=== PATIENT | male | born 1975 | race Caucasian/White ===

== ENCOUNTER 2020-08-01 08:50 | Outpatient (REF) | payer OTHER, SELFPAY ==
--- NOTE | ~2020-08-01 | XR_ITS ---
EXAMINATION: XR CHEST CLINICAL INFORMATION: Cough. COMPARISON: None TECHNIQUE: 2 views of the chest were obtained. FINDINGS: The lungs are hyperinflated but clear of acute process. Heart size and the pulmonary vascularity is normal. No gross bony abnormality seen. XR/XR chest 2V IMPRESSION: Unremarkable chest exam.
== END 2020-08-01 08:51 | disposition home or self-care (01) ==
LOC: HO.HMGCLDS 08:50
PROVIDERS: Visit Provider Hospitalist
DX: R05 Cough (principal); J40 Bronchitis, not specified as acute or chronic; Z20.822 Contact with and (suspected) exposure to COVID-19
CPT/HCPCS: 71046; U0003; U0005

== ENCOUNTER 2021-06-29 12:46 | Outpatient (REF) | payer OTHER, SELFPAY ==
--- NOTE | ~2021-06-29 | XR_ITS ---
EXAMINATION: XR WRIST, LEFT CLINICAL INFORMATION: Arthropathic psoriasis COMPARISON: None TECHNIQUE: PA, lateral, and oblique views of the left wrist. FINDINGS: No fracture or dislocation. The carpal rows are well aligned. Joint spaces are maintained. Mild arthritic change of the distal radioulnar joint with osteophyte formation. No osseous erosions. The soft tissues are unremarkable. XR/XR wrist LT min 3V IMPRESSION: Mild arthritic change of the distal radioulnar joint. Otherwise unremarkable appearance of the wrist.
== END 2021-06-29 12:47 | disposition home or self-care (01) ==
LOC: HO.HMGCX 12:46
PROVIDERS: Visit Provider Nurse Practitioner Family
DX: M25.532 Pain in left wrist (principal); L40.50 Arthropathic psoriasis, unspecified
CPT/HCPCS: 73110

== ENCOUNTER 2022-12-17 09:02 | Emergency (ER) | payer OTHER, SELFPAY ==
--- NOTE | ~2022-12-17 | XR_ITS ---
EXAMINATION: XR FOOT, RIGHT CLINICAL INFORMATION: Right foot pain. COMPARISON: None available. TECHNIQUE: AP, lateral, and oblique views of the right foot. An indicator arrow points to the fifth digit. FINDINGS: There is an acute, minimally displaced and angled a fracture at the level the proximal metaphysis of the proximal phalanx of the fifth digit. The mid and distal phalanges appear intact. The fifth metatarsal appears intact as well. The remainder the digits are intact. The tarsal bones are normally aligned. Mild soft tissue swelling is seen laterally. XR/XR foot RT min 3V IMPRESSION: Acute, minimally displaced and angled fracture of the proximal phalanx of the fifth digit with mild soft tissue swelling.
[2022-12-17 09:09] VITALS: BMI 42.2
[2022-12-17 09:23] VITALS: BP 126/86; PULSE 100; RESP 19; TEMP 37.2; O2SAT 96
--- NOTE | 2022-12-17 10:23 | ED.LOWEXIN ---
HPI - Extremity Injury (Lower) General Chief Complaint: Extremity Injury, Lower Stated Complaint: R broken toe? Time Seen by Provider: 12/17/22 09:13 Source: patient and family Mode of arrival: ambulatory Limitations: no limitations History of Present Illness HPI Narrative: 47-year-old male with history of psoriasis presents to the ER for evaluation of right pinky toe and lateral foot pain since yesterday after accidentally kicking the door jam periods patient states he was doing some hip flexor exercises, taking his right leg back and forth when he accidentally kicked the door jam. He had immediate pain, swelling and shortly developed bruising. He has pain with ambulation. He has a small cut between his 4th and 5th toes with some active oozing. He is not diabetic. He denies any numbness or tingling. He reports the pain is in the entire 5th digit and starts to radiate down into the distal foot. MD complaint: foot injury Onset (ago): day(s) (1) Injury: Right: foot Type of Injury: blunt Place: home Severity: moderate Relieving factors: immobilization and rest Exacerbating factors: weight bearing, movement and palpation Context: direct blow Associated symptoms: ambulatory Other symptoms: none Related Data Home Medications Medication Instructions Recorded Confirmed divalproex 500 mg tablet,delayed mg PO 04/14/22 release quetiapine 400 mg tablet 400 mg PO BEDTIME 04/14/22 Previous Rx's Medication Instructions Recorded meloxicam 15 mg tablet 15 mg PO DAILY #14 tabs 04/14/22 amoxicillin 875 mg-potassium 1 tab PO BID #14 tabs 12/17/22 clavulanate 125 mg tablet Allergies Allergy/AdvReac Type Severity Reaction Status Date / Time No Known Allergies Allergy Verified 04/14/22 09:38 Review of Systems Review of Systems: Yes all other systems are reviewed and are negative PMFSH Social History Social History Advance Directives: No Advance Directives Information Provided: No Physical Exam Vital Signs: Vital Signs: Last Vital Signs Temp 98.9 F 12/17/22 09:23 Pulse 100 12/17/22 09:23 Resp 19 12/17/22 09:23 BP 126/86 12/17/22 09:23 Pulse Ox 96 12/17/22 09:23 O2 Del Method Room Air 12/17/22 09:23 BMI result Body Mass Index 42.2 Appearance: Alert. Oriented X3. No acute distress. HEENT: normal inspection CVS: Normal heart rate and rhythm. Pulses normal. Respiratory: No respiratory distress. Skin: Skin warm and dry. Normal skin color. Normal skin turgor. psoriatic rash Extremities: Right foot with ecchymosis and swelling of the 5th digit and area over the 5th distal metatarsal. Area is tender. There is a superficial laceration with some active oozing between the Fourth and 5th toes. foot is warm and well perfused, 2+ DP pulse. Psoriatic rash present Neuro: Oriented X 3. No motor deficit. No sensory deficit. Medical Decision Making Medical Decision Making MDM Narrative: 47-year-old male with history of obesity and psoriasis presents the ER for evaluation of right 5th toe and foot pain after accidentally kicking the door frame yesterday while doing some hip exercises. there is a small superficial laceration between the toes, no indication for suture repair at this time. The 5th toe is tender, swollen, ecchymotic. There is also some tenderness of the distal 5th metatarsal. X-ray was reviewed, no evidence of Wallace fracture. There is a minimally displaced and angulated fracture of the 5th toe. Patient counseled on diagnosis, treatment, and management. Will start antibiotics given this is technically an open fracture. Patient stable for discharge home with outpatient follow-up. 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 Patient agrees with plan. Differential Diagnosis Differential Diagnoses: The differential diagnosis associated with the presentation includes toe fracture, Wallace fracture, toe sprain, contusion Independent Interpretation I performed an independent interpretation of an: Plain X-Ray Interpretation: x-ray of the foot reviewed, agree w/ fracture of the 5th digit. Radiology Impression Discussion of test interpretation with radiology: I have reviewed the radiologist's reading. Radiologist Impression: EXAMINATION: XR FOOT, RIGHT CLINICAL INFORMATION: Right foot pain.? COMPARISON: None available.? TECHNIQUE: AP, lateral, and oblique views of the right foot. An indicator arrow points to the fifth digit. FINDINGS: There is an acute, minimally displaced and angled a fracture at the level the proximal metaphysis of the proximal phalanx of the fifth digit. The mid and distal phalanges appear intact. The fifth metatarsal appears intact as well. The remainder the digits are intact. The tarsal bones are normally aligned. Mild soft tissue swelling is seen laterally.? XR/XR foot RT min 3V IMPRESSION: Acute, minimally displaced and angled fracture of the proximal phalanx of the fifth digit with mild soft tissue swelling. ? Independent Historian Clinical information obtained from an independent historian. History obtained from or confirmed by: Spouse Prescription Management I considered prescription management with: Pain Medication and Antibiotic Laceration on the toe this is technically an open fracture, will prescribe antibiotics Chronic Conditions Patient?s care impacted by: Other (obesity, psoriasis) Critical Care Time Critical Care Time Critical Care Time: No Discharge Plan Discharge Clinical Impression: Fracture, toe Patient Disposition: Home, Self-Care Instructions: Toe Fracture (ED) Additional Instructions: Your x-ray showed you fractured your pinky toe Take the prescribed antibiotics as directed, complete the entire course and do not miss any doses Wear the provided post-op shoe Follow up with Orthopedics Elevate and ice as needed for pain and swelling Keep the wound clean and dry, monitor for signs of infection Follow up with your doctor as needed If you develop new or worsening symptoms call 911 or come back to the ER for further evaluation. EXAMINATION: XR FOOT, RIGHT CLINICAL INFORMATION: Right foot pain.? COMPARISON: None available.? TECHNIQUE: AP, lateral, and oblique views of the right foot. An indicator arrow points to the fifth digit. FINDINGS: There is an acute, minimally displaced and angled a fracture at the level the proximal metaphysis of the proximal phalanx of the fifth digit. The mid and distal phalanges appear intact. The fifth metatarsal appears intact as well. The remainder the digits are intact. The tarsal bones are normally aligned. Mild soft tissue swelling is seen laterally.? XR/XR foot RT min 3V IMPRESSION: Acute, minimally displaced and angled fracture of the proximal phalanx of the fifth digit with mild soft tissue swelling. ? Prescriptions: New amoxicillin-pot clavulanate 875-125 mg tablet 1 tab PO BID Qty: 14 0RF No Action quetiapine 400 mg tablet 400 mg PO BEDTIME divalproex 500 mg tablet,delayed release (DR/EC) PO meloxicam 15 mg tablet 15 mg PO DAILY Qty: 14 0RF Referrals: [facility] [Provider Group] (open toe fx) Stand Alone Forms: Work/School Release
== END 2022-12-17 10:54 | disposition home or self-care (01) ==
PROVIDERS: Emergency Provider Emergency Medicine
DX: S92.501A Displaced unspecified fracture of right lesser toe(s), initial encounter for closed fracture (principal); M79.671 Pain in right foot; Y29.XXXA Contact with blunt object, undetermined intent, initial encounter; Y93.9 Activity, unspecified; Y92.9 Unspecified place or not applicable; Y99.9 Unspecified external cause status; Z79.899 Other long term (current) drug therapy
CPT/HCPCS: 73630; 99283

== ENCOUNTER 2022-12-31 14:24 | Outpatient (AMB) | payer OTHER, SELFPAY ==
--- NOTE | 2022-12-31 14:30 | MHC.OFFVIS ---
Intake Vital Signs 12/31/22 14:39 Height 6 ft Weight 311 lb BMI 42.2 Intake Visit Reasons: fc-fracture of phalanx of right foot Intake Note: Dav a 47 year old male who presents today for an ER follow up of right 5th toe fx, DOI 12/16/22. Patient reports he jammed his toe into a frame of a wall. He presented to [facility] the following day where xrays were taken and was placed in a walking post op shoe. Currently he will have mild pain but finds relief with icing and Motrin. He completed antibiotics that was prescribed. He d/c wearing post op shoe. Allergies No Known Allergies Allergy (Verified 04/14/22 09:38) HPI fc-fracture of phalanx of right foot HPI Details 47-year-old male who presents to the office today for an ER follow-up of right foot injury s/p jamming his toe into a frame of wall, 12/16/22. He was seen at ER the next day where x-rays were performed and he was placed in a walking shoe. He states he has mild pain in his foot. He finds relief with icing, Motrin and ibuprofen. He is completed with his antibiotics prescribed to him. He has discontinued wearing the boot. [facility] Social History (Updated 12/31/22 @ 14:36 by TRINA Mc) Patient Tobacco Use Status: Never used Tobacco Current occupational status: employed Review of Systems Const All systems reviewed & are unremarkable except as noted in HPI and below Physical Exam Vital Signs: BMI result Body Mass Index 42.2 Extrem Other: Right foot: Normal to inspection. He does not have any bruising or swelling. No tenderness to palpation over the fracture site. Office Procedures Fracture Care Fracture Billing Code: Fracture Billing Code Results Reviewed Results Reviewed: X-rays of the right foot obtained in the ED on December 17 show a minimally displaced fracture through the proximal phalanx of the small toe. Assessment & Plan Assessment & Plan (1) Toe fracture, right: Code(s): S92.911A - Unspecified fracture of right toe(s), initial encounter for closed fracture Qualifiers: Encounter type: initial encounter Toe: lesser toe Fracture type: closed Phalanx: proximal Fracture alignment: displaced Qualified Code(s): S92.511A - Displaced fracture of proximal phalanx of right lesser toe(s), initial encounter for closed fracture Plan In the absence of pain, he will increase activity as tolerated. He will continue to wear regular street shoes as he has been doing. And he will return to work on 01/01/23 without restrictions. If symptoms persist or worsens, patient will contact the office, otherwise follow-up as needed. Patient Instructions: Scribed for Connie Jacob PA-C, by Umer Vidal biomedical equipment technician, on 12/31/2022 at 2:30 PM EST. I, Connie Jacob PA-C, have personally reviewed and agree with the information entered by the scribe. Coding Level of Care Code New Pt Level 3 (33484) Diagnoses Closed displaced fracture of proximal phalanx of lesser toe of right foot, initial encounter S92.511A Encounter type: initial encounter Toe: lesser toe Fracture type: closed Phalanx: proximal Fracture alignment: displaced CPT Codes Fracture Care - Fracture Billing Code: Fracture Billing Code ([id number])
[2022-12-31 14:39] VITALS: BMI 42.2
== END 2022-12-31 14:44 | disposition home or self-care (01) ==
PROVIDERS: Visit Provider Physician Assistant
DX: S92.511A Displaced fracture of proximal phalanx of right lesser toe(s), initial encounter for closed fracture (principal)
CPT/HCPCS: 99203

== ENCOUNTER → 2022-12-31 14:24 | Outpatient (BNVA) | payer OTHER, SELFPAY | PROVIDERS: Visit Provider Physician Assistant ==

== ENCOUNTER 2023-03-30 11:19 | Emergency (ER) | payer OTHER, SELFPAY ==
--- NOTE | 2023-03-30 11:50 | ED_ITS ---
HPI - General Adult General Chief complaint: Skin/Abscess/Foreign Body Stated complaint: quest body infection Time Seen by Provider: 03/30/23 11:50 Source: patient Mode of arrival: ambulatory Limitations: no limitations History of Present Illness HPI narrative: Patient is a 47 year old assigned male at with a history of psoriasis presenting to the emergency department today with a psoriasis flare. Patient states that over the last few months especially his psoriasis has gotten worse. 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 Patient denies any dizziness, lightheadedness, abdominal pain, nausea, vomiting, fever, chills, blurry vision, double vision, loss of vision, chest pain, difficulty breathing, shortness of breath, back pain, night sweats, pain with urination, increased urinary frequency, increased urinary urgency, blood in his urine or stool, syncope or a near syncopal episode, recent trauma or falls, bowel incontinence, bladder incontinence, bowel retention, bladder retention, or any other complaints at this time. Onset (ago): month(s) Severity: severe Relieving factors: none Exacerbating factors: none Associated symptoms: denies other symptoms Treatments prior to arrival: none Related Data Home Medications Medication Instructions Recorded Confirmed divalproex 500 mg tablet,delayed mg PO 04/14/22 release quetiapine 400 mg tablet 400 mg PO BEDTIME 04/14/22 Previous Rx's Medication Instructions Recorded amoxicillin 875 mg-potassium 1 tab PO BID #14 tabs 12/17/22 clavulanate 125 mg tablet fluconazole 150 mg tablet 150 mg PO Q3D 2 doses #2 tabs 03/30/23 prednisone 20 mg tablet 20 mg PO DAILY 12 days #26 tabs 03/30/23 Allergies Allergy/AdvReac Type Severity Reaction Status Date / Time No Known Allergies Allergy Verified 04/14/22 09:38 Review of Systems 2 Constitutional: Constitutional: Reports no additional constitutional complaints, Denies chills, Denies fever(s) and Denies night sweats Eyes: Eyes: Reports no additional eye complaints, Denies blurry vision, Denies change in vision, Denies diplopia, Denies eye discharge, Denies loss of vision and Denies eye pain ENT: Denies dizziness Cardiovascular: Cardiovascular: Reports no additional cardiovascular complaints, Denies chest pain, Denies lightheadedness, Denies Loss of Consciousness and Denies dyspnea Respiratory: Respiratory: Reports no additional respiratory complaints and Denies dyspnea Gastrointestinal: Gastrointestinal: Reports no additional gastrointestinal complaints, Denies abdominal pain, Denies melena, Denies hematochezia, Denies change in bowel habits and Denies change in stool character Genitourinary: Genitourinary: Reports no additional male genitourinary complaints, Denies hematuria, Denies oliguria, Denies difficulty urinating, Denies dysuria, Denies urinary frequency, Denies urinary hesitancy, Denies urinary incontinence and Denies urinary urgency Musculoskeletal: Musculoskeletal: Reports no additional musculoskeletal complaints, Denies numbness and Denies tingling Integumentary/Breasts: Comments: psoriasis type rash diffusely Neurologic: Denies dizziness, Denies loss of vision, Denies numbness and Denies tingling Psychiatric: Psychiatric: Reports no additional psychiatric complaints Endocrine: Endocrine: Reports no additional endocrine complaints Hematologic/Lymphatic: Hematologic/Lymphatic: Reports no additional hematologic/lymphatic complaints Allergic/Immunologic: Allergic/Immunologic: Reports no additional allergic/immunologic complaints PMFSH Past Medical History Attestation statement: The following information was validated with the patient. Source: old records reviewed and nursing notes reviewed Social History Social History Patient Tobacco Use Status: Never used Tobacco Advance Directives: No Advance Directives Information Provided: Yes Current occupational status: employed Physical Exam ED Vital Signs: Vital Signs - 24 hr 03/30/23 11:51 Temperature 98.3 F Pulse Rate 95 Respiratory Rate 21 H Blood Pressure 141/90 H Pulse Oximetry 95 Oxygen Delivery Method Room Air BMI result Body Mass Index 42.7 Const General: cooperative, no acute distress, alert and awake Nutritional Appearance: well nourished Orientation/consciousness: patient oriented x3 Limitations: no limitations HENMT Head: Yes atraumatic Ears: hearing grossly normal bilaterally and external ears normal General nose exam: Normal external nose present, no nasal discharge noted and no epistaxis Face and sinus: No abrasion and No laceration Mouth: Normal oral and palatal mucosa present, no drooling and no muffled voice Eyes General: appearance normal, both eyes and all related structures Periorbital: periorbital findings normal Eyelids: Yes eyelids normal Conjunctivae: conjunctivae normal Pupils: Equal, round and reactive pupils present EOM: EOMs intact bilaterally Neck Neck: Yes normal visual inspection, Yes full ROM and Yes no lymphadenopathy Resp Effort & Inspection: normal respiratory effort and able to speak in complete sentences GI Inspection: Yes normal to inspection Skin Other: diffuse psoriasis with multiple red, large, patches to the entire body including around the groin and buttock. Patient has additional erythema around the groin that appears fungal in nature. Neuro General: patient oriented x3 and moves all extremities Cranial nerves: Yes Equal, round and reactive pupils present Cognition (Neuro): normal cognition Motor exam (neuro): 5/5 motor strength present throughout Sensory Exam: Normal double simultaneous stimulation for sensation Coordination: [id number] test normal Extrem General: Yes normal to inspection, Yes full ROM and Yes capillary refill normal Psych Appearance: grossly normal Mental Status: mental status grossly normal Affect: normal affect Attitude: cooperative Thought process: Normal thought process present Thought content: Normal thought content present Insight: Good insight present (Psych) Medications Administered Discontinued Medications Generic Name Dose Route Start Last Admin Trade Name Freq PRN Reason Stop Dose Admin Sodium Chloride 1,000 mls @ 999 mls/hr 03/30/23 12:45 03/30/23 12:43 Ns IV 03/30/23 13:45 999 mls/hr .Q1H1M LIZETH Administration Methylprednisolone Sodium Succinate 60 mg 03/30/23 11:55 03/30/23 12:40 Methylprednisolone Sod Succ 125 Mg/2 Ml Vial IVPUSH 03/30/23 11:56 60 mg ONCE ONE Administration Medical Decision Making Medical Decision Making [facility] Narrative: Patient is a 47 year old assigned male at with a history of psoriasis presenting to the emergency department today with worsening psoriasis flare. Patient's physical exam was as noted in the physical exam portion of this note. Patient's blood work showed an elevated lactic acid but was otherwise unremarkable. Patient was given 1L of fluids. I explained my physical exam findings as well as all test results to the patient. I answered all questions asked by the patient. I stressed the importance of the patient taking his medication as prescribed. I stressed the importance of the patient following up with his primary care provider and the technical internship as scheduled. I stressed the importance of the patient returning to the emergency department immediately if his symptoms were to worsen or if he were to develop any dizziness, shortness of breath, difficulty breathing, chest pain, blurry vision, loss of vision, nausea, vomiting, abdominal pain, fever, chills, back pain, or any other complaints. Patient verbalized agreement and understanding with this treatment plan and discharge. Differential Diagnosis Differential Diagnoses: The differential diagnosis associated with the presentation includes Yeast infection Psoriasis Admission/Observation Consideration of admission/observation: Escalation of care including admission/observation considered Patient would have been admitted to the hospital had his work up had any findings where hospital admission was appropriate and his clinical presentation warranted hospital admission. Lab Data [facility] Lab Attestation statement: I reviewed the patient's lab results. My interpretation of these results are in the [facility] Rationale portion of this note. 03/30/23 12:14 03/30/23 12:14 Labs: Lab Results 03/30/23 Range/Units 12:14 WBC 8.5 (4.8-10.8) X10*3/uL RBC 5.05 (4.60-5.80) X10*6/uL Hgb 15.3 (14.0-18.0) g/dl Hct 46.8 (42.0-52.0) % MCV 92.7 (80.0-98.0) fL MCH 30.3 (27.0-33.0) pg MCHC 32.7 (31.0-36.0) g/dl RDW 14.7 (11.0-16.0) % Plt Count 328 (160-400) X10*3/uL MPV 8.0 L (9.4-12.4) fL Immature Gran % (Auto) 1.2 H (0.0-0.4) % Neut % (Auto) 52.0 (45-73) % Lymph % (Auto) 31.0 (20-40) % Grant % (Auto) 11.6 H (2-11) % Eos % (Auto) 2.6 (0-4) % Baso % (Auto) 1.6 (0-2) % Lymph # (Auto) 2.7 (1.2-4.9) X10*3/uL Grant # (Auto) 1.0 (0.1-1.2) X10*3/uL Eos # (Auto) 0.2 (0.0-0.4) X10*3/uL Baso # (Auto) 0.1 (0.0-0.2) X10*3/uL Abs Immat Gran (auto) 0.10 H (0.00-0.03) X10*3/uL Absolute Neuts (auto) 4.4 (2.0-8.3) x10*3/uL Absolute Nucleated RBC 0.000 (0.0-0.012) X10*3/uL Nucleated RBC % (auto) 0.0 (0.0-0.2) /100WBC ESR 8 (0-15) MM/HR Sodium 141 (135-145) mmol/L Potassium 4.6 (3.3-5.1) mmol/L Chloride 104 (96-108) mmol/L Carbon Dioxide 26 (22-29) mmol/L Anion Gap 16 (12-20) BUN 16 (9-16) mg/dL Creatinine 0.83 (0.5-1.4) mg/dL Estim Creat Clear Calc 161.4 Estimated GFR > 60 Random Glucose 108 (60-115) mg/dL Lactic Acid 3.0 H* (0.5-2.0) mmol/L Calcium 9.6 (8.4-10.2) mg/dL Magnesium 2.4 (1.6-2.6) mg/dL Total Bilirubin 0.3 (0.0-1.0) mg/dL AST 51 H (5-37) U/L ALT 51 H (0-40) U/L Alkaline Phosphatase 55 (39-117) U/L C-Reactive Protein 0.47 (< or = 0.50) mg/dL Total Protein 8.7 H (6.5-8.0) g/dL Albumin 4.5 (3.5-5.0) g/dL Discharge Plan Discharge Clinical Impression: Psoriasis Patient Disposition: Home, Self-Care Instructions: Psoriasis (ED) Additional Instructions: Follow up with your primary care provider and a technical internship. You may apply hydrocortizone cream over the counter to your body but avoid applying to your face or groin. Return to the emergency department immediately if your symptoms worsen or if you develop any dizziness, shortness of breath, difficulty breathing, chest pain, blurry vision, loss of vision, nausea, vomiting, abdominal pain, fever, chills, back pain, or any other complaints. Prescriptions: New prednisone 20 mg tablet 20 mg PO DAILY 12 Days Qty: 26 0RF Rx Instructions: Take 3 tablets for 5 days THEN; Take 2 tablets for 4 days THEN; Take 1 tablet for 3 days fluconazole 150 mg tablet 150 mg PO Q3D Qty: 2 0RF No Action amoxicillin-pot clavulanate 875-125 mg tablet 1 tab PO BID Qty: 14 0RF quetiapine 400 mg tablet 400 mg PO BEDTIME divalproex 500 mg tablet,delayed release (DR/EC) PO Referrals: Burak Pedersen PA [Primary Care Provider] - Interventions: ED Discharge Assessment Last Done: 03/30/23 13:13 Discharge Date/Time: 03/30/23 13:14 Print Language: Qatari
[2023-03-30 11:51] VITALS: BP 141/90; PULSE 95; RESP 21; TEMP 36.8; O2SAT 95; BMI 42.7
[2023-03-30 12:22] LABS: MANUAL DIFF FLAG NO
[2023-03-30 12:26] LABS: Basophils Absolute Auto 0.1 X10*3/uL (0.0-0.2); Basophils Percent Auto 1.6 % (0-2); Eosinophils Absolute Auto 0.2 X10*3/uL (0.0-0.4); Eosinophils Percent Auto 2.6 % (0-4); Hematocrit 46.8 % (42.0-52.0); Hemoglobin 15.3 g/dl (14.0-18.0); Imm Gran Pct Auto 1.2 % (0.0-0.4); Lymphocytes Absolute Auto 2.7 X10*3/uL (1.2-4.9); Mean Corpuscular HGB Conc 32.7 g/dl (31.0-36.0); Mean Corpuscular Hemoglobin 30.3 pg (27.0-33.0); Mean Corpuscular Volume 92.7 fL (80.0-98.0); Monocytes Percent Auto 11.6 % (2-11); Neutrophils Absolute Auto 4.4 x10*3/uL (2.0-8.3); Platelet Count 328 X10*3/uL (160-400); Red Blood Count 5.05 X10*6/uL (4.60-5.80); Red Cell Distribution Width 14.7 % (11.0-16.0); White Blood Count 8.5 X10*3/uL (4.8-10.8)
[2023-03-30 12:38] LABS: Alanine Aminotransferase 51 U/L (0-40); Albumin Level 4.5 g/dL (3.5-5.0); Alkaline Phosphatase 55 U/L (39-117); Anion Gap 16 (12-20); Aspartate Amino Transferase 51 U/L (5-37); Bilirubin Total 0.3 mg/dL (0.0-1.0); Blood Urea Nitrogen 16 mg/dL (9-16); C Reactive Protein 0.47 mg/dL (< or = 0.50); Calcium 9.6 mg/dL (8.4-10.2); Carbon Dioxide 26 mmol/L (22-29); Chloride 104 mmol/L (96-108); Creatinine Clr Calc Pharmacy 161.4; Estimated Glomerular Filt Rate > 60; Glucose Random 108 mg/dL (60-115); Magnesium 2.4 mg/dL (1.6-2.6); Potassium 4.6 mmol/L (3.3-5.1); Sodium 141 mmol/L (135-145); Total Protein 8.7 g/dL (6.5-8.0)
[2023-03-30] MEDS: methylPREDNISolone Sod Succ 125 MG/2 ML VIAL 60 MG IVPUSH (12:40)
[2023-03-30] MEDS: 0.9 % Sodium Chloride 1,000 ML 999 ML IV (12:43)
[2023-03-30 13:15] LABS: Erythrocyte Sedimentation Rate 8 MM/HR (0-15)
[2023-03-30 14:20] LABS: Reflex Lactate? Lactic Acid Added
== END 2023-03-30 13:14 | disposition home or self-care (01) ==
PROVIDERS: Physician Assistant Medical; Emergency Provider Emergency Medicine Emergency Medical Services; PCP Physician Assistant Medical
DX: L40.9 Psoriasis, unspecified (principal); Z79.899 Other long term (current) drug therapy
CPT/HCPCS: 36415; 80053; 83605; 83735; 85025; 85652; 86140; 87040; 96374; 99283; 99284; J2930

== ENCOUNTER 2023-04-11 07:04 | Emergency (ER) | payer OTHER, SELFPAY ==
[2023-04-11 07:05] VITALS: BP 145/90; PULSE 101; RESP 20; TEMP 36.8; O2SAT 96; BMI 42.5
--- NOTE | 2023-04-11 07:11 | ED.URI ---
HPI - URI/Sore Throat General Chief Complaint: Upper Respiratory Symptoms Stated Complaint: Not feeling well Time Seen by Provider: 04/11/23 07:11 Source: patient Mode of arrival: ambulatory Limitations: no limitations History of Present Illness HPI Narrative: 47-year-old male with history of psoriatic arthritis who presents emergency department for evaluation of nonproductive cough, nasal congestion, fever, chills, body ache, fatigue. Patient's symptoms started yesterday and he states he feels worse today. Patient states he has received 2 vaccinations for COVID and has had COVID at least once in the past. 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 He denied chest pain, shortness of breath, dyspnea on exertion, nausea, vomiting, diarrhea. He has not had any frequency, urgency or dysuria. Patient does have psoriatic arthritis and is not on any medications/immunosuppressants. He states that his psoriatic arthritis is under control at this time. Related Data Home Medications Medication Instructions Recorded Confirmed divalproex 500 mg tablet,delayed mg PO 04/14/22 release quetiapine 400 mg tablet 400 mg PO BEDTIME 04/14/22 Previous Rx's Medication Instructions Recorded amoxicillin 875 mg-potassium 1 tab PO BID #14 tabs 12/17/22 clavulanate 125 mg tablet fluconazole 150 mg tablet 150 mg PO Q3D 2 doses #2 tabs 03/30/23 prednisone 20 mg tablet 20 mg PO DAILY 12 days #26 tabs 03/30/23 nirmatrelvir 300 mg (150 mg See Rx Instructions PO .COMPLEX 04/11/23 x2)-ritonavir 100 mg tablet,dose #30 ea pack (Paxlovid) Allergies Allergy/AdvReac Type Severity Reaction Status Date / Time No Known Allergies Allergy Verified 04/11/23 07:08 Review of Systems Review of Systems: Yes all other systems are reviewed and are negative FOR[facility]LY [facility], [facility] Past Medical History FORMERLY [facility], [facility]–1983 Narrative: Past medical history: Psoriatic arthritis. Social history: He denies tobacco, alcohol and drug use. 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 Social History Social History Patient Tobacco Use Status: Never used Tobacco Advance Directives: No Advance Directives Information Provided: Yes Current occupational status: employed Physical Exam Vital Signs: Vital Signs: Last Vital Signs Temp 98.3 F 04/11/23 07:05 Pulse 101 H 04/11/23 07:05 Resp 20 04/11/23 07:05 BP 145/90 H 04/11/23 07:05 Pulse Ox 96 04/11/23 07:05 O2 Del Method Room Air 04/11/23 07:05 BMI result Body Mass Index 42.5 Vital signs were normal Exam: General: Awake, alert in no distress, BMI 42.5 Head: Normocephalic, atraumatic EENT: PERRL, Lids normal, sclera normal, conjunctiva normal, nose normal , ears normal, throat without erythema or exudates Neck: Supple, no adenopathy, no trachea midline or C-spine tenderness Lung: breath sounds symmetric, no wheezing, rales or rhonchi Chest: symmetric movement, nontender Heart: regular rate and rhythm, normal S1, S2 no murmurs or rubs Abdomen: soft, non-tender, nondistended, normal bowel sounds Back: no vertebral tenderness, no CVAT Extremities: no deformities, moves all extremities symmetrically Skin: Patient has rash on his abdomen, and back consistent with psoriatic arthritis Neuro: Awake, alert, oriented, normal speech, moves all extremities symmetrically Psych: Pleasant, cooperative Medical Decision Making Medical Decision Making MDM Narrative: 47-year-old male history psoriatic arthritis who presents emergency department for evaluation of viral URI symptoms x1 day with symptoms including nonproductive cough, nasal congestion, fever, body aches, fatigue with no chest pain shortness of breath or dyspnea on exertion. Vital signs were normal. Physical exam was unremarkable. Following evaluation was ordered: COVID-19, influenza 07:42 My interpretation patient's laboratory evaluation as follows: COVID-19 test was positive. Influenza was negative. Given the patient's psoriatic arthritis (autoimmune disease/immunocompromised) and elevated BMI of 42.5, I believe the patient would benefit from taking Paxil of id in the patient agreed with this plan. 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 He was given printed and verbal instructions and discharged to home. Differential Diagnosis Differential Diagnoses: The differential diagnosis associated with the presentation includes Differential diagnosis includes was not limited to pneumonia, bronchitis, URI, COVID-19, influenza, viral syndrome Lab Data Labs: Lab Results 04/11/23 Range/Units 07:11 COVID-19 (EDD) Positive A (Negative) COVID-19 Clin Com See Note Discharge Plan Discharge Clinical Impression: COVID-19 virus infection, URI (upper respiratory infection) Patient Disposition: Home, Self-Care Instructions: COVID-19 (Coronavirus Disease 2019) (ED) Additional Instructions: Your COVID-19 test was positive. At this time I believe that the COVID virus is given you an upper respiratory infection in you do not have pneumonia. Take Paxlovid as prescribed for 5 days. The medicine comes in a dose pack (3 pills every 12 hours for total 5 days) You will need to isolate for at least 5 days or your afebrile for at least 24 hours and feeling better. Increase your fluid intake to prevent dehydration. Please return to the emergency department if your symptoms get worse or if you develop any symptoms that are concerning to you. Please see work note Your influenza tests were negative. Prescriptions: New Paxlovid 300 mg (150 mg x 2)-100 mg tablets,dose pack See Rx Instructions PO .COMPLEX Qty: 30 0RF Rx Instructions: take TWO 150 mg tablets of nirmatrelvir with ONE 100 mg tablet of ritonavir twice daily for 5 days No Action prednisone 20 mg tablet 20 mg PO DAILY 12 Days Qty: 26 0RF Rx Instructions: Take 3 tablets for 5 days THEN; Take 2 tablets for 4 days THEN; Take 1 tablet for 3 days fluconazole 150 mg tablet 150 mg PO Q3D Qty: 2 0RF amoxicillin-pot clavulanate 875-125 mg tablet 1 tab PO BID Qty: 14 0RF quetiapine 400 mg tablet 400 mg PO BEDTIME divalproex 500 mg tablet,delayed release (DR/EC) PO Stand Alone Forms: Work/School Release
[2023-04-11 07:27] LABS: COVID-19 Test Positive (Negative); IDNOW Serial# BCCEAD1C
[2023-04-11 07:39] LABS: IDNOW Serial# 08D9AD1C; Influenza A Negative (Negative); Influenza B2 Negative (Negative)
== END 2023-04-11 08:14 | disposition home or self-care (01) ==
PROVIDERS: Emergency Provider Emergency Medicine Emergency Medical Services
DX: U07.1 COVID-19 (principal); J06.9 Acute upper respiratory infection, unspecified
CPT/HCPCS: 87502; 87635; 99282; 99283

== ENCOUNTER 2023-04-24 08:09 | Outpatient (AMB) | payer OTHER, SELFPAY ==
[2023-04-24 08:38] VITALS: BP 140/82; PULSE 91; TEMP 36.6; O2SAT 97; BMI 42.4
--- NOTE | 2023-04-24 08:38 | AM.OFFWIN_ITS ---
Intake Vital Signs 04/24/23 08:38 Height 6 ft Weight 313 lb BMI 42.4 BP 140/82 H Blood Pressure Location Lt brachial Position Sitting Pulse 91 Pulse Source Pulse Oximeter Temp 97.9 F Temp Source Oral Pulse Oximetry (%) 97 Oxygen Delivery Method Room Air Intake Visit Reasons: EP Covid + 04/11 Wheezing [phone] Intake Note: pt is here for c.o congestion, wheezing, heavy chest. postive covid on apr 11 Patient Tobacco Use Status: Never used Tobacco Allergies No Known Allergies Allergy (Verified 04/24/23 08:39) Do you need a note to return to daycare/school/sports/work: Yes HPI EP Covid + 04/11 Wheezing [phone] HPI Details This is a 47 year old male patient who presents today with upper respiratory complaints. He had positive covid test on 04/11. He reports that he had fever, chills, body aches, chest congestion for about 1 week, and now his symptoms consist of productive cough and intermittent shortness of breath. He does not feel he has been improving with time and otc treatment. 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 [facility] Social History Patient Tobacco Use Status: Never used Tobacco Current occupational status: employed Review of Systems Const All systems reviewed & are unremarkable except as noted in HPI and below Physical Exam Vital Signs: Last Vital Signs Temp 97.9 F 04/24/23 08:38 Pulse 91 04/24/23 08:38 BP 140/82 H 04/24/23 08:38 Pulse Ox 97 04/24/23 08:38 Oxygen Delivery Method Room Air 04/24/23 08:38 BMI result Body Mass Index 42.4 Const General: cooperative and no acute distress Nutritional Appearance: obese HEENT Head: Yes normal to inspection Ears: hearing grossly normal bilaterally Resp Effort & Inspection: Actively coughing Quality: actively coughing Auscultation: wheezes upper bilaterally and diminished lung sounds bilateral in the lower lung hill Cardio Jugular venous distension: no JVD Palpation: normal PMI Rate: regular rate Rhythm: regular rhythm Skin General skin exam: no rashes or lesions noted Extrem General: Yes capillary refill normal and Yes no clubbing, cyanosis or edema Psych Appearance: grossly normal Mental Status: mental status grossly normal Speech and movement: Normal speech and movement present Assessment & Plan Assessment & Plan (1) Shortness of breath: Code(s): R06.02 - Shortness of breath Plan: Patient has ongoing cough, shortness of breath, and diminished lower lung sounds s/p Covid infection 04/11/23. XR obtained in the office today was reviewed and does not reveal any acute process. Given presentation however, I am going to start patient on abx, benzonatate, and a short course of prednisone. We reviewed indications, use, possible side effects of all medications. He can continue to use tylenol otc for any fever/myalgias. I provided him with a work note. If he does not improve with time and treatment, or if symptoms worsen, he should return to the clinic for further evaluation. Patient verbalizes understanding and agrees to plan. Orders: Orders XR chest 2V 04/24/23 R06.02 - Shortness of breath Medications: New prednisone 20 mg PO BID 6 tabs 0RF 3 days amoxicillin-pot clavulanate 875-125 mg 1 tab PO BID 20 tabs 0RF 10 days R06.02 - Shortness of breath benzonatate 100 mg PO BID PRN 14 caps 0RF cough 7 days R05.9 - Cough, unspecified Coding Level of Care Code Est Pt Level 3 (32725) Diagnoses Shortness of breath R06.02
== END 2023-04-24 09:25 | disposition home or self-care (01) ==
PROVIDERS: Visit Provider Nurse Practitioner Family
DX: R06.02 Shortness of breath (principal)
CPT/HCPCS: 99213

== ENCOUNTER 2023-04-24 08:58 | Outpatient (REF) | payer OTHER, SELFPAY ==
--- NOTE | ~2023-04-24 | XR_ITS ---
EXAMINATION: XR CHEST 2 VIEW CLINICAL INFORMATION: Shortness of breath, prior Covid in 03/2021 COMPARISON: Chest x-ray of 08/01/2020 TECHNIQUE: PA and lateral views of the chest obtained. FINDINGS: The lungs are clear. There are no pleural effusions. The cardiomediastinal silhouette is normal. XR/XR chest 2V IMPRESSION: No acute cardiopulmonary disease.
== END 2023-04-24 08:59 | disposition home or self-care (01) ==
LOC: HO.HMGCX 08:58
PROVIDERS: Visit Provider Nurse Practitioner Family
DX: R06.02 Shortness of breath (principal)
CPT/HCPCS: 71046

== ENCOUNTER 2024-03-24 12:25 | Inpatient (IN) | payer OTHER, SELFPAY ==
[2024-03-24 13:39] VITALS: BP 131/93; PULSE 98; RESP 16; TEMP 36.9; O2SAT 97
[2024-03-24 13:41] VITALS: BMI 41.1
[2024-03-24 16:39] LABS: Valproate 19.1 mcg/mL (50.0-100.0)
[2024-03-24 18:23] LABS: Anion Gap 16 (12-20); Blood Urea Nitrogen 14 mg/dL (9-16); Calcium 10.2 mg/dL (8.4-10.2); Carbon Dioxide 27 mmol/L (22-29); Chloride 103 mmol/L (96-108); Creatinine Clr Calc Pharmacy 129.8; Estimated Glomerular Filt Rate > 60; Glucose Random 94 mg/dL (60-115); Potassium 4.7 mmol/L (3.3-5.1); Sodium 141 mmol/L (135-145)
--- NOTE | 2024-03-24 18:30 | PC.ADMIT ---
03/24/24 Dav is a 48 y/o male that? was admitted to at time from [facility] on CV for treatment of Bipolar d/o. 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 Pt was sent to [facility] via [facility] respite d/t decompensated and disorganized. [facility] reported he hopped a fence and was responding to internal stimuli. Pt?s reported a recent change in Dav?s behaviors, not sleeping, called out of work and was mumbling to himself. While at [facility] pt attempted to elope and became aggressive w/ security and was restrained, he received haldol and ativan IM on 03/23/24. Pt is a poor historian at this time, difficulty in remembering.? Pt was alert and oriented and was cooperative with the admission process, pt offered limited answers and was soft spoken. Mood and affect is flat. Pt denied SI or HI at this time. Recent decrease in appetite. Reported poor sleep. Focus is poor. Eye contact was avoidant. Tox Screen was negative. No hx of substance use. Pt was slow to answer and body movements are slow. Pt has a hx of chronic neck pain, erectile dysfunction. Hyperlipidemia, HTN, hypogonadism, psoriasis , sleep apnea and uses a CPAP.? Pt was placed on 15 minute checks for safety and close obs for equipment from 11p to 7 am. Pt was compliant with skin check. Pt has psoriasis throughout the entire body in various stages. Last hospitalized in 2021 at [facility]. Pt has stopped going to his therapist and psychiatrist.?
[2024-03-24 20:00] VITALS: BP 175/98; BP 186/100; PULSE 105; PULSE 110; RESP 16; TEMP 36.4; O2SAT 96
--- NOTE | 2024-03-24 21:01 | PC.NURSE ---
Addendum entered by Chandrika Eduardo RN 03/25/24 00:40: BP taken again at 24:00 and found to have decreased to 134/71 with HR of 111. Addendum entered by Chandrika Eduardo RN 03/24/24 22:35: Clonidine 0.1mg was administered at 21:13 per T.O and MAR. Will re-check BP in 45 min per hospitalist's suggestion. Addendum entered by Chandrika Eduardo RN 03/24/24 22:31: BP retaken in presence of hospitalist NGUYEN David and found to be 175/98 with HR of 110. Hospitalist suggested I recheck his BP in 45 min. Original Note: Dav's BP was found to be 186/100 with HR of 105. BP was retaken and a similar value was obtained. Dr Merchant made aware via tiger text and requested that I put in a telephone order for clonidine 0.1 PO ONCE (hold for SBP <150). T.O read back, submitted, and waiting for pharmacy to verify it before administering.
[2024-03-24 21:13] VITALS: BP 186/100
[2024-03-24] MEDS: QUEtiapine Fumarate 400 MG TABLET PO (21:13)
[2024-03-24] MEDS: Divalproex Sodium ER 500 MG TAB.ER.24H 1000 MG PO (21:13)
[2024-03-24] MEDS: cloNIDine HCL 0.1 MG TABLET PO (21:13)
--- NOTE | 2024-03-24 23:05 | HO.PM.IMCN ---
History of Present Illness Data of Consult Service Date: 03/24/24 Requesting physician: Kirit Scott Primary Care Provider: Unknown Physician HPI Reason for consult: medical consult Patient is a 48-year-old male with a past medical history significant for hyperlipidemia, hypertension, psoriasis, hypogonadism, TIFFANY on CPAP, anxiety and depression, admitted to adult Psychiatry M3 were bipolar disorder. He comes from [facility] via and respite due to decompensation and disorganization. He has no current medical medical concerns. He denies chest pain, shortness of breath, headache, nasal congestion, runny nose or abdominal pain. His blood pressures have been elevated, however he is asymptomatic. He is unsure if he had his losartan today before transferring here. Review of Systems Constitutional: Constitutional: Denies body ache(s), Denies chills, Denies fatigue, Denies fever(s) and Denies headache(s) Eyes: Eyes: Denies change in vision ENT: Denies headache(s), Denies nasal congestion, Denies nasal discharge, Denies post nasal drip and Denies sore throat Cardiovascular: Cardiovascular: Denies chest pain, Denies rapid heart rate, Denies leg edema and Denies dyspnea Respiratory: Respiratory: Denies chest congestion, Denies cough, Denies dyspnea and Denies wheezing Gastrointestinal: Gastrointestinal: Denies constipation, Denies diarrhea, Denies nausea and Denies vomiting Genitourinary: Genitourinary: Denies dysuria and Denies urinary urgency Musculoskeletal: Musculoskeletal: Denies arthralgias, Denies numbness and Denies tingling Integumentary/Breasts: Skin/Breast: Denies rash Neurologic: Denies confusion, Denies headache(s), Denies memory loss, Denies numbness and Denies tingling Psychiatric: Psychiatric: Denies confusion and Denies memory loss Endocrine: Endocrine: Denies fatigue Hematologic/Lymphatic: Hematologic/Lymphatic: Denies easy bleeding Allergic/Immunologic: Allergic/Immunologic: Denies wheezing [facility] Medical History (Updated 03/24/24 @ 23:10 by Dorothy Carson PA-C) TIFFANY on CPAP Psoriasis HLD (hyperlipidemia) HTN (hypertension) Functional capacity: independent ambulation Social History Household Members: Family Housing: House Do you presently have visiting nurse or other home services: No Patient Tobacco Use Status: Never used Tobacco Use of substances other than those prescribed or required for medical reasons: No Currently Displaying Signs/Symptoms of Drug Intoxication Withdrawal: No Any prior treatment program specific to substance use: No Have you been hit, kicked, punched, or otherwise hurt by someone within the past year? If so, by whom?: No Do you feel safe in your current relationship?: Yes Is there a partner from a previous relationship who is making you feel unsafe now?: No Are you made to feel afraid or neglected: No Advance Directives: No Advance Directives Information Provided: Yes Recently lost weight without trying: No How much weight loss: Unsure Eating poorly because of decreased appetite: Yes Nutrition screen score: 3 Nutrition Risks: No Nutritional Risk Poor oral hygiene: No Current occupational status: employed Meds Allergies Allergy/AdvReac Type Severity Reaction Status Date / Time No Known Allergies Allergy Verified 04/24/23 08:39 Active Medications: Current Medications Acetaminophen (Acetaminophen 325 Mg Tablet) 650 mg PO Q6H PRN PRN Reason: Headache/Pain Mild Scale (1-3) Al Hydroxide/Mg Hydroxide (Magnesium Hydrox/Alum Hydrox 30 Ml Oral.Susp) 30 ml PO Q6H PRN PRN Reason: Heartburn/Nausea Clonidine HCl (Clonidine Hcl 0.1 Mg Tablet) 0.1 mg PO Q4H PRN; Protocol PRN Reason: SBP > 159 Divalproex Sodium (Divalproex Sodium Er 500 Mg Tab.Er.24h) 1,000 mg PO BEDTIME LIZETH Last Admin: 03/24/24 21:13 Dose: 1,000 mg Hydroxyzine HCl (Hydroxyzine Hcl 25 Mg Tablet) 25 mg PO Q6H PRN PRN Reason: Anxiety Losartan Potassium (Losartan Potassium 50 Mg Tablet) 50 mg PO DAILY LIZETH; Protocol Magnesium Hydroxide (Milk Of Magnesia 30 Ml Oral.Susp) 30 ml PO DAILY PRN PRN Reason: Constipation Nicotine Polacrilex (Nicotine Polacrilex 2 Mg Gum) 4 mg BUCCAL Q2H PRN PRN Reason: Nicotine Cravings Quetiapine Fumarate (Quetiapine Fumarate 400 Mg Tablet) 400 mg PO BEDTIME LIZETH Last Admin: 03/24/24 21:13 Dose: 400 mg Trazodone HCl (Trazodone Hcl 50 Mg Tablet) 50 mg PO BEDTIME MRX1 PRN PRN Reason: Insomnia Home Medications ?Medication ?Instructions ?Recorded ?Confirmed ?Last Taken ?Type divalproex 500 mg tablet,extended 500 mg PO ONCE 03/24/24 03/24/24 03/23/24 20:00 History release 24 hr (Depakote ER) losartan 50 mg tablet 50 mg PO DAILY 03/24/24 03/24/24 03/23/24 20:00 History quetiapine 400 mg tablet 400 mg PO BEDTIME 03/24/24 03/24/24 03/23/24 20:00 History Physical Exam Vital Signs and Narrative: Vital Signs: Last Vital Signs Temp 98.4 F 03/24/24 13:39 Pulse 98 03/24/24 13:39 Resp 16 03/24/24 13:39 BP 186/100 H 03/24/24 21:13 Pulse Ox 97 03/24/24 13:39 O2 Del Method Room Air 03/24/24 13:39 BMI result Body Mass Index 41.1 General: AOx3, no acute distress Resp: CTA bilaterally CVS: S1, S2, RRR GI: +BS, NT, no distention Skin: Warm, dry. psoriasis on face and upper extremities. Neuro: Cranial nerves II-XII grossly intact bilaterally. Motor grossly intact bilaterally. strength 5/5 bilateral upper and lower extremities. Extremities: No LE edema Psych: Appropriate affect Const: General: No confusion Orientation/consciousness: No confusion Neuro: General: No confusion Results Labs 03/24/24 13:49 Labs: Laboratory Results - last 24 hr 03/24/24 03/24/24 03/24/24 13:49 14:11 16:05 Hold Purple Top SEE NOTE Anion Gap 16 Estim Creat Clear Calc 129.8 Estimated GFR > 60 Random Glucose 94 Calcium 10.2 D Valproic Acid 19.1 L Assessment and Plan (1) Medical clearance for psychiatric admission: Status: Acute Plan Patient is a 48-year-old male with a past medical history significant for hyperlipidemia, hypertension, psoriasis, hypogonadism, TIFFANY on CPAP, anxiety and depression, admitted to adult Psychiatry M3 were bipolar disorder. mood disorder - plan per psych HLD - no home meds HTN - continue losartan - episode of high blood pressure today, likely did not get losartan dose prior to transfer, was given clonidine x1 dose Psoriasis - not bothersome for patient, appears to have used triamcinolone 0.1% cream in the past, restart if desired Hypogonadism - was on testosterone, does not appear to have been refilled recently, continue outpatient management TIFFANY on CPAP - use CPAP on unit if desired Thank you for allowing me to participate in the pt's care. Singing off for now. Please contact the medical team if any questions or concerns.
[2024-03-25] VITALS: BP 134/71; PULSE 110
[2024-03-25] MEDS: traZODone HCL 50 MG TABLET PO (00:26)
--- NOTE | 2024-03-25 00:41 | PC.NURSE ---
Patient c/o insomnia. He received 50mg PRN Trazodone per MAR. Effect is pending. Will continue to monitor.
--- NOTE | 2024-03-25 07:13 | PHA.MEDREC ---
Pharmacy Consult ? Medication Reconciliation Pharmacy reviewed med rec done by nursing. Claims match what is confirmed.
[2024-03-25 07:39] VITALS: BP 143/83; PULSE 97; RESP 16; TEMP 36.9; O2SAT 98
[2024-03-25 08:25] VITALS: BP 121/79; PULSE 91; RESP 16; TEMP 37; O2SAT 95
[2024-03-25 08:28] LABS: MANUAL DIFF FLAG NO
[2024-03-25 08:31] LABS: Basophils Absolute Auto 0.1 X10*3/uL (0.0-0.2); Basophils Percent Auto 1.6 % (0-2); Eosinophils Absolute Auto 0.2 X10*3/uL (0.0-0.4); Eosinophils Percent Auto 2.3 % (0-4); Hematocrit 44.1 % (42.0-52.0); Hemoglobin 14.8 g/dl (14.0-18.0); Imm Gran Abs Auto 0.04 X10*3/uL (0.00-0.03); Imm Gran Pct Auto 0.5 % (0.0-0.4); Lymphocytes Absolute Auto 2.4 X10*3/uL (1.2-4.9); Lymphocytes Percent Auto 32.5 % (20-40); Mean Corpuscular HGB Conc 33.6 g/dl (31.0-36.0); Mean Corpuscular Hemoglobin 29.3 pg (27.0-33.0); Mean Corpuscular Volume 87.3 fL (80.0-98.0); Mean Platelet Volume 8.7 fL (9.4-12.4); Monocytes Absolute Auto 0.9 X10*3/uL (0.1-1.2); Monocytes Percent Auto 11.4 % (2-11); Neutrophils Absolute Auto 3.8 x10*3/uL (2.0-8.3); Neutrophils Percent Auto 51.7 % (45-73); Platelet Count 327 X10*3/uL (160-400); Red Blood Count 5.05 X10*6/uL (4.60-5.80); Red Cell Distribution Width 15.5 % (11.0-16.0); White Blood Count 7.4 X10*3/uL (4.8-10.8)
[2024-03-25] MEDS: Losartan Potassium 50 MG TABLET PO (08:33)
[2024-03-25 08:39] LABS: Estimated Average Glucose 117 mg/dL; Hemoglobin A1C 150.0984 umol/L; Hemoglobin A1c % 5.7 % (<6.0); Total Hemoglobin (HGBA1C) 3825.3418 umol/L
[2024-03-25 08:52] LABS: Alanine Aminotransferase 55 U/L (0-40); Albumin Level 4.5 g/dL (3.5-5.0); Alkaline Phosphatase 60 U/L (39-117); Aspartate Amino Transferase 39 U/L (5-37); Bilirubin Direct 0.1 mg/dL (0.0-0.5); Bilirubin Total 0.3 mg/dL (0.0-1.0); Cholesterol 159 mg/dL (<200); HDL Cholesterol 32 mg/dL (>40); LDL Cholesterol Calculated 76 mg/dL (<100); Total Protein 7.8 g/dL (6.5-8.0); Triglycerides 259 mg/dL (<150)
[2024-03-25 09:08] LABS: Free T4 (Free Thyroxine) 1.07 ng/dL (0.71-1.85); Thyroid Stimulating Hormone 1.77 uIU/mL (0.32-4.0)
--- NOTE | 2024-03-25 09:08 | HO.PSYADMNOT ---
HPI Date of Service: 03/25/24 Chief Complaint: Mental health crisis HPI Narrative: per [facility] ED notes, pt was seenin community by [facility] and then referred to the ED for admission. he was described as very terse, answering in only 1-2 words at a time. he denied any medical concerns in the ED. a h/o bipolar disorder was reported, and pt's outpt meds included VPA 1000 mg QHS and seroquel 400 mg QHS. at some point after his arrival, pt attempted to elope from the ED and had to be physically brought back by security staff. he was given haldol 5 and ativan 2 mg IM. medical workup was unremarkable, and pt was referred for inpatient admission. per [facility] note, pt had been at [facility] respite and had presented as disorganized. he reportedly hopped the fence there, was RIS, was making nonsensical statements, and was engaging in bizarre behaviors, under the circumstances, such as rolling in leaves. he endorsed AH to [facility] staff. per collateral from pt's , he stopped sleeping last saturday and has been calling out of work. he became progressively mute such that by saturday he would not respond to her at all verbally. since then he mumbles sometimes and has been wandering aimlessly in the house. on interview with MD, pt is much as described above. blunted, terse, psychomotorically retarded. his responses are linear and logical, however. he agrees to VPA, seroquel, and ativan. pt also seen with , collateral obtained, questions answered. discussed possibility of lithium augmentation and use of ativan for catatonia. pt denied any safety concerns at present. Past Psychiatric History: hosps: [facility] 2021, francine SA: denies SIB: denies outpt: reports pt has stopped seeing his therapist and psych MD. PCP has been Rxing meds. Medical Evaluation Reviewed: Yes [facility] Medical History (Updated 03/25/24 @ 20:50 by Kirit Scott MD) TIFFANY on CPAP Psoriasis HLD (hyperlipidemia) HTN (hypertension) Family History: mother - hyperthyroidism Social History: [employer] . . lives with his and their son. strong family supports and friends. 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 Substance History: per , no h/o alcohol or ELEAZAR. pt denies alcohol, tobacco. he does endorse occasional cannabis use. Trauma History: unknown Diagnostics Vital Signs (24Hr): Vital Signs - 24 hr 03/24/24 13:39 03/24/24 20:00 03/24/24 20:00 Temperature 98.4 F 97.6 F Pulse Rate 98 105 H 110 H Respiratory Rate 16 16 Blood Pressure 131/93 H 186/100 H 175/98 H Pulse Oximetry 97 96 Oxygen Delivery Method Room Air Room Air 03/24/24 21:13 03/25/24 00:00 03/25/24 07:39 Temperature 98.4 F Pulse Rate 110 H 97 Respiratory Rate 16 Blood Pressure 186/100 H 134/71 143/83 H Pulse Oximetry 98 Oxygen Delivery Method Room Air 03/25/24 08:25 Temperature 98.6 F Pulse Rate 91 Respiratory Rate 16 Blood Pressure 121/79 Pulse Oximetry 95 Oxygen Delivery Method Room Air BMI result Body Mass Index 41.1 Labs 03/25/24 07:55 03/24/24 13:49 Labs: Laboratory Results - last 48 hr 03/24/24 03/24/24 03/24/24 13:49 14:11 16:05 WBC RBC Hgb Hct MCV MCH MCHC RDW Plt Count MPV Immature Gran % (Auto) Neut % (Auto) Lymph % (Auto) [place] % (Auto) Eos % (Auto) Baso % (Auto) Lymph # (Auto) [place] # (Auto) Eos # (Auto) Baso # (Auto) Abs Immat Gran (auto) Absolute Neuts (auto) Absolute Nucleated RBC Nucleated RBC % (auto) Hold Purple Top SEE NOTE Sodium 141 Potassium 4.7 Chloride 103 Carbon Dioxide 27 Anion Gap 16 BUN 14 Creatinine 1.00 Estim Creat Clear Calc 129.8 Estimated GFR > 60 Random Glucose 94 Estimat Average Glucose Hemoglobin A1c % Calcium 10.2 D Total Bilirubin Direct Bilirubin AST ALT Alkaline Phosphatase Total Protein Albumin Triglycerides Cholesterol LDL Cholesterol, Calc HDL Cholesterol Valproic Acid 19.1 L 03/25/24 07:55 WBC 7.4 RBC 5.05 Hgb 14.8 Hct 44.1 MCV 87.3 MCH 29.3 MCHC 33.6 RDW 15.5 Plt Count 327 MPV 8.7 L Immature Gran % (Auto) 0.5 H Neut % (Auto) 51.7 Lymph % (Auto) 32.5 [place] % (Auto) 11.4 H Eos % (Auto) 2.3 Baso % (Auto) 1.6 Lymph # (Auto) 2.4 [place] # (Auto) 0.9 Eos # (Auto) 0.2 Baso # (Auto) 0.1 Abs Immat Gran (auto) 0.04 H Absolute Neuts (auto) 3.8 Absolute Nucleated RBC 0.000 Nucleated RBC % (auto) 0.0 Hold Purple Top Sodium Potassium Chloride Carbon Dioxide Anion Gap BUN Creatinine Estim Creat Clear Calc Estimated GFR Random Glucose Estimat Average Glucose 117 Hemoglobin A1c % 5.7 Calcium Total Bilirubin 0.3 Direct Bilirubin 0.1 AST 39 H ALT 55 H Alkaline Phosphatase 60 Total Protein 7.8 Albumin 4.5 Triglycerides 259 H Cholesterol 159 LDL Cholesterol, Calc 76 HDL Cholesterol 32 L Valproic Acid Meds/Allergies Meds Home Medications ?Medication ?Instructions ?Recorded ?Confirmed ?Type divalproex 500 mg tablet,extended 500 mg PO ONCE 03/24/24 03/24/24 History release 24 hr (Depakote ER) losartan 50 mg tablet 50 mg PO DAILY 03/24/24 03/24/24 History quetiapine 400 mg tablet 400 mg PO BEDTIME 03/24/24 03/24/24 History Allergies Allergies Allergy/AdvReac Type Severity Reaction Status Date / Time No Known Allergies Allergy Verified 04/24/23 08:39 Mental Status Exam Mental Status Exam Narrative: obese, adequately dressed and groomed. PMR. cooperative. speech soft and sparse, incr MARY. thoughts linear and logical. affect blunted. mood tired. foggy. denies SI/HI/AVH. Assessment & Plan Assessment & Plan (1) HTN (hypertension): Status: Acute Code(s): I10 - Essential (primary) hypertension (2) TIFFANY on CPAP: Status: Acute Code(s): G47.33 - Obstructive sleep apnea (adult) (pediatric) (3) Bipolar I disorder: Status: Acute Code(s): F31.9 - Bipolar disorder, unspecified Plan VPA level 19.1. restart VPA and titrate to dosing more likely to produce a therapeutic level. restart/continue seroquel 400 QHS. add ativan 1 TID for apparent catatonia. T/C adding lithium or wellbutrin for augmentation. Patient educated on: medication risk/benefits Reason for continued inpatient stay Substantial Risk for: inability to function Statement Statement: I have reviewed the history and physical and performed a pertinent examination on my patient. No changes have occurred unless specified. If the History and Physical was not performed prior to admission, the Hospitalist's service will be consulted for completing the admission physical. Time Spent With Patient Time: Total time managing care of this patient today __75__ minutes.
[2024-03-25 09:21] LABS: Folate 8.3 ng/mL (> or = 4.0); Vitamin B12 774 pg/mL (200-900)
[2024-03-25] MEDS: Triamcinolone Acet 0.1 % Cream 15 GM TUBE 1 APPL TOPICAL (13:36)
--- NOTE | 2024-03-25 14:21 | MHC.CLN ---
NUTRITION CONSULT FOR RECENT DECREASED APPETITE. REVIEW OF WEIGHT HX IN EMR SHOWS WEIGHT LOSS X ONE YEAR -3.7%. WEIGHT LOSS NOT SIGNIFICANT. BMI=41.1, INDICATING EXTREME OBESITY. NO ADDITIONAL NUTRITION INTERVENTIONS AT THIS TIME.
[2024-03-25] MEDS: LORazepam 1 MG TABLET PO ×2 (17:49→20:10)
[2024-03-25 20:00] VITALS: BP 146/100; PULSE 95; RESP 16; TEMP 36.3; O2SAT 94
[2024-03-25] MEDS: Divalproex Sodium ER 500 MG TAB.ER.24H 1000 MG PO (20:09)
[2024-03-25] MEDS: QUEtiapine Fumarate 400 MG TABLET PO (20:10)
[2024-03-25] MEDS: Divalproex Sodium ER 500 MG TAB.ER.24H PO (21:42)
[2024-03-26 07:10] VITALS: BP 131/92; PULSE 101; RESP 18; TEMP 36.8; O2SAT 94
[2024-03-26 08:26] VITALS: BP 141/84; PULSE 96
[2024-03-26] MEDS: LORazepam 1 MG TABLET PO ×3 (08:28→21:21)
[2024-03-26] MEDS: Losartan Potassium 50 MG TABLET PO (08:28)
--- NOTE | 2024-03-26 15:12 | HO.PSYCHPN ---
Subjective Subjective Date of Service: 03/26/24 Reason For Visit: Mental health crisis Interim History: faster responses today, greater verbal output. reports eating, sleeping better than prior, having more clarity. feels comfortable we are headed in the right direction, would like to continue with current regimen. Mental Status Exam Mental Status Exam Narrative: obese, adequately dressed and groomed. PMR. cooperative. speech soft and sparse, incr MARY; faster responses and more verbal output than yesterday, however. thoughts linear and logical. affect blunted. mood not assessed. no SI/HI/AVH expressed. Diagnostics Vital Signs (24Hr): Vital Signs - 24 hr 03/25/24 20:00 03/26/24 07:10 03/26/24 08:26 Temperature 97.3 F 98.2 F Pulse Rate 95 101 H 96 Respiratory Rate 16 18 Blood Pressure 146/100 H 131/92 H 141/84 H Pulse Oximetry 94 94 Oxygen Delivery Method Room Air Room Air BMI result Body Mass Index 41.1 Labs 03/25/24 07:55 03/24/24 13:49 Labs: Laboratory Results - last 48 hr 03/24/24 03/24/24 03/25/24 13:49 16:05 07:55 WBC 7.4 RBC 5.05 Hgb 14.8 Hct 44.1 MCV 87.3 MCH 29.3 MCHC 33.6 RDW 15.5 Plt Count 327 MPV 8.7 L Immature Gran % (Auto) 0.5 H Neut % (Auto) 51.7 Lymph % (Auto) 32.5 [place] % (Auto) 11.4 H Eos % (Auto) 2.3 Baso % (Auto) 1.6 Lymph # (Auto) 2.4 [place] # (Auto) 0.9 Eos # (Auto) 0.2 Baso # (Auto) 0.1 Abs Immat Gran (auto) 0.04 H Absolute Neuts (auto) 3.8 Absolute Nucleated RBC 0.000 Nucleated RBC % (auto) 0.0 Sodium 141 Potassium 4.7 Chloride 103 Carbon Dioxide 27 Anion Gap 16 BUN 14 Creatinine 1.00 Estim Creat Clear Calc 129.8 Estimated GFR > 60 Random Glucose 94 Estimat Average Glucose 117 Hemoglobin A1c % 5.7 Calcium 10.2 D Total Bilirubin 0.3 Direct Bilirubin 0.1 AST 39 H ALT 55 H Alkaline Phosphatase 60 Total Protein 7.8 Albumin 4.5 Triglycerides 259 H Cholesterol 159 LDL Cholesterol, Calc 76 HDL Cholesterol 32 L Vitamin B12 774 Folate 8.3 TSH 1.77 Free T4 1.07 Valproic Acid 19.1 L Medications Medications Current Medications Acetaminophen (Acetaminophen 325 Mg Tablet) 650 mg PO Q6H PRN PRN Reason: Headache/Pain Mild Scale (1-3) Al Hydroxide/Mg Hydroxide (Magnesium Hydrox/Alum Hydrox 30 Ml Oral.Susp) 30 ml PO Q6H PRN PRN Reason: Heartburn/Nausea Clonidine HCl (Clonidine Hcl 0.1 Mg Tablet) 0.1 mg PO Q4H PRN; Protocol PRN Reason: SBP > 159 Divalproex Sodium (Divalproex Sodium Er 500 Mg Tab.Er.24h) 1,500 mg PO BEDTIME LIZETH Hydroxyzine HCl (Hydroxyzine Hcl 25 Mg Tablet) 25 mg PO Q6H PRN PRN Reason: Anxiety Lorazepam (Lorazepam 1 Mg Tablet) 1 mg PO TID LIZETH Last Admin: 03/26/24 08:28 Dose: 1 mg Losartan Potassium (Losartan Potassium 50 Mg Tablet) 50 mg PO DAILY LIZETH; Protocol Last Admin: 03/26/24 08:28 Dose: 50 mg Magnesium Hydroxide (Milk Of Magnesia 30 Ml Oral.Susp) 30 ml PO DAILY PRN PRN Reason: Constipation Nicotine Polacrilex (Nicotine Polacrilex 2 Mg Gum) 4 mg BUCCAL Q2H PRN PRN Reason: Nicotine Cravings Quetiapine Fumarate (Quetiapine Fumarate 400 Mg Tablet) 400 mg PO BEDTIME LIZETH Last Admin: 03/25/24 20:10 Dose: 400 mg Trazodone HCl (Trazodone Hcl 50 Mg Tablet) 50 mg PO BEDTIME MRX1 PRN PRN Reason: Insomnia Last Admin: 03/25/24 00:26 Dose: 50 mg Triamcinolone Acetonide (Triamcinolone Acet 0.1 % Cream 15 Gm Tube) 1 appl TOPICAL DAILY LIZETH; Protocol Stop: 04/08/24 10:14 Last Admin: 03/26/24 08:30 Dose: Not Given Allergies Allergies Allergy/AdvReac Type Severity Reaction Status Date / Time No Known Allergies Allergy Verified 04/24/23 08:39 Assessment & Plan Assessment & Plan (1) HTN (hypertension): Status: Acute Code(s): I10 - Essential (primary) hypertension (2) TIFFANY on CPAP: Status: Acute Code(s): G47.33 - Obstructive sleep apnea (adult) (pediatric) (3) Bipolar I disorder: Status: Acute Code(s): F31.9 - Bipolar disorder, unspecified Plan 03/25: VPA level 19.1. restart VPA and titrate to dosing more likely to produce a therapeutic level. restart/continue seroquel 400 QHS. add ativan 1 TID for apparent catatonia. T/C adding lithium or wellbutrin for augmentation. 03/26: substantially less slow and more verbal than yesterday. continue current mgmt for now. Reason for continued inpatient stay Substantial Risk for: harm to self and inability to function Time Spent With Patient Time: Total time managing care of this patient today __25__ minutes.
[2024-03-26 19:45] VITALS: BP 146/82; PULSE 90; RESP 18; TEMP 36.8; O2SAT 94
[2024-03-26] MEDS: QUEtiapine Fumarate 400 MG TABLET PO (21:21)
[2024-03-26] MEDS: Divalproex Sodium ER 500 MG TAB.ER.24H 1500 MG PO (21:21)
[2024-03-27 08:30] VITALS: BP 132/101; PULSE 98; RESP 16; TEMP 36.4; O2SAT 94
[2024-03-27 08:37] VITALS: BP 132/101
[2024-03-27] MEDS: Losartan Potassium 50 MG TABLET PO (08:37)
[2024-03-27] MEDS: LORazepam 1 MG TABLET PO ×3 (08:38→21:22)
[2024-03-27] MEDS: Triamcinolone Acet 0.1 % Cream 15 GM TUBE 1 APPL TOPICAL (08:41)
--- NOTE | 2024-03-27 13:00 | P.PNPSI_ITS ---
Subjective Subjective Date of Service: 03/27/24 Reason For Visit: Mental health crisis Interim History: yet less MARY and more words. agreeable to continue as we are, feels like he is improving. per staff, blunted and unable to answer yesterday morning. taking meds. agitated. irritable. later in day no wandering or bizarre statements. slept 7 hours. Mental Status Exam Mental Status Exam Narrative: obese, adequately dressed and groomed. less PMR. cooperative. speech soft and sparse, less MARY; faster responses and more verbal output by the day. thoughts linear and logical. affect blunted. mood not assessed. no SI/HI/AVH. Diagnostics Vital Signs (24Hr): Vital Signs - 24 hr 03/26/24 19:45 03/27/24 08:30 03/27/24 08:37 Temperature 98.2 F 97.5 F Pulse Rate 90 98 Respiratory Rate 18 16 Blood Pressure 146/82 H 132/101 H 132/101 H Pulse Oximetry 94 94 Oxygen Delivery Method Room Air Room Air BMI result Body Mass Index 41.1 Labs 03/25/24 07:55 03/24/24 13:49 Medications Medications Current Medications Acetaminophen (Acetaminophen 325 Mg Tablet) 650 mg PO Q6H PRN PRN Reason: Headache/Pain Mild Scale (1-3) Al Hydroxide/Mg Hydroxide (Magnesium Hydrox/Alum Hydrox 30 Ml Oral.Susp) 30 ml PO Q6H PRN PRN Reason: Heartburn/Nausea Clonidine HCl (Clonidine Hcl 0.1 Mg Tablet) 0.1 mg PO Q4H PRN; Protocol PRN Reason: SBP > 159 Divalproex Sodium (Divalproex Sodium Er 500 Mg Tab.Er.24h) 1,500 mg PO BEDTIME [facility] Last Admin: 03/26/24 21:21 Dose: 1,500 mg Hydroxyzine HCl (Hydroxyzine Hcl 25 Mg Tablet) 25 mg PO Q6H PRN PRN Reason: Anxiety Lorazepam (Lorazepam 1 Mg Tablet) 1 mg PO TID [facility] Last Admin: 03/27/24 08:38 Dose: 1 mg Losartan Potassium (Losartan Potassium 50 Mg Tablet) 50 mg PO DAILY LIZETH; Protocol Last Admin: 03/27/24 08:37 Dose: 50 mg Magnesium Hydroxide (Milk Of Magnesia 30 Ml Oral.Susp) 30 ml PO DAILY PRN PRN Reason: Constipation Nicotine Polacrilex (Nicotine Polacrilex 2 Mg Gum) 4 mg BUCCAL Q2H PRN PRN Reason: Nicotine Cravings Quetiapine Fumarate (Quetiapine Fumarate 400 Mg Tablet) 400 mg PO BEDTIME LIZETH Last Admin: 03/26/24 21:21 Dose: 400 mg Trazodone HCl (Trazodone Hcl 50 Mg Tablet) 50 mg PO BEDTIME MRX1 PRN PRN Reason: Insomnia Last Admin: 03/25/24 00:26 Dose: 50 mg Triamcinolone Acetonide (Triamcinolone Acet 0.1 % Cream 15 Gm Tube) 1 appl TOPICAL DAILY LIZETH; Protocol Stop: 04/08/24 10:14 Last Admin: 03/27/24 08:41 Dose: 1 appl Allergies Allergies Allergy/AdvReac Type Severity Reaction Status Date / Time No Known Allergies Allergy Verified 04/24/23 08:39 Assessment & Plan Assessment & Plan (1) HTN (hypertension): Status: Acute Code(s): I10 - Essential (primary) hypertension (2) TIFFANY on CPAP: Status: Acute Code(s): G47.33 - Obstructive sleep apnea (adult) (pediatric) (3) Bipolar I disorder: Status: Acute Code(s): F31.9 - Bipolar disorder, unspecified Plan 03/25: VPA level 19.1. restart VPA and titrate to dosing more likely to produce a therapeutic level. restart/continue seroquel 400 QHS. add ativan 1 TID for apparent catatonia. T/C adding lithium or wellbutrin for augmentation. 03/26: substantially less slow and more verbal than yesterday. continue current mgmt for now. 03/27: continues daily improvement in PMR/paucity of thought. continue current mgmt. Reason for continued inpatient stay Substantial Risk for: inability to function and rapid decompensation Time Spent With Patient Time: Total time managing care of this patient today __25__ minutes.
--- NOTE | 2024-03-27 16:37 | PC.NURSE ---
pt refused CT scan, provider aware
[2024-03-27 19:53] VITALS: BP 118/96; PULSE 100; RESP 18; TEMP 36.3; O2SAT 95
[2024-03-27] MEDS: Divalproex Sodium ER 500 MG TAB.ER.24H 1500 MG PO (21:22)
[2024-03-27] MEDS: QUEtiapine Fumarate 400 MG TABLET PO (21:23)
[2024-03-28 07:20] VITALS: BP 130/75; PULSE 86; RESP 14; TEMP 36.9; O2SAT 95
--- NOTE | 2024-03-28 07:38 | HO.PSYCHPN ---
Subjective Subjective Date of Service: 03/28/24 Reason For Visit: Mental health crisis Subjective Notes: Conditional Voluntary Interim History: is taking medications and trying to attend some groups. Isolative. Self-care is poor. Sleep okay. With proposal lead writer is very guarded. Clear thought blocking and psychomotor retardation. Appears paranoid. As per staff there has been some improvement IV spent 1 hour in the shower today, but was actually able to shower, versus past days. Medication Compliance: Yes Side effects from medications: No Attending Groups: Intermittent Review of Systems Acute medical concerns: No Review of Systems Review of Systems nothing acute noted Mental Status Exam Mental Status Exam Narrative: obese, adequately dressed and groomed. less PMR. cooperative. speech soft and sparse, less MARY; faster responses and more verbal output compared to admission. May be some thought blocking, but is linear with engages. affect blunted. mood not assessed. no SI/HI/AVH. Does appear paranoid and guarded. Insight and judgment does appear limited Diagnostics Vital Signs (24Hr): Vital Signs - 24 hr 03/27/24 08:30 03/27/24 08:37 03/27/24 19:53 Temperature 97.5 F 97.3 F Pulse Rate 98 100 Respiratory Rate 16 18 Blood Pressure 132/101 H 132/101 H 118/96 H Pulse Oximetry 94 95 Oxygen Delivery Method Room Air Room Air BMI result Body Mass Index 41.1 Labs 03/25/24 07:55 03/24/24 13:49 Medications Medications Current Medications Acetaminophen (Acetaminophen 325 Mg Tablet) 650 mg PO Q6H PRN PRN Reason: Headache/Pain Mild Scale (1-3) Al Hydroxide/Mg Hydroxide (Magnesium Hydrox/Alum Hydrox 30 Ml Oral.Susp) 30 ml PO Q6H PRN PRN Reason: Heartburn/Nausea Clonidine HCl (Clonidine Hcl 0.1 Mg Tablet) 0.1 mg PO Q4H PRN; Protocol PRN Reason: SBP > 159 Divalproex Sodium (Divalproex Sodium Er 500 Mg Tab.Er.24h) 1,500 mg PO BEDTIME [facility] Last Admin: 03/27/24 21:22 Dose: 1,500 mg Hydroxyzine HCl (Hydroxyzine Hcl 25 Mg Tablet) 25 mg PO Q6H PRN PRN Reason: Anxiety Lorazepam (Lorazepam 1 Mg Tablet) 1 mg PO TID [facility] Last Admin: 03/27/24 21:22 Dose: 1 mg Losartan Potassium (Losartan Potassium 50 Mg Tablet) 50 mg PO DAILY LIZETH; Protocol Last Admin: 03/27/24 08:37 Dose: 50 mg Magnesium Hydroxide (Milk Of Magnesia 30 Ml Oral.Susp) 30 ml PO DAILY PRN PRN Reason: Constipation Nicotine Polacrilex (Nicotine Polacrilex 2 Mg Gum) 4 mg BUCCAL Q2H PRN PRN Reason: Nicotine Cravings Quetiapine Fumarate (Quetiapine Fumarate 400 Mg Tablet) 400 mg PO BEDTIME LIZETH Last Admin: 03/27/24 21:23 Dose: 400 mg Trazodone HCl (Trazodone Hcl 50 Mg Tablet) 50 mg PO BEDTIME MRX1 PRN PRN Reason: Insomnia Last Admin: 03/25/24 00:26 Dose: 50 mg Triamcinolone Acetonide (Triamcinolone Acet 0.1 % Cream 15 Gm Tube) 1 appl TOPICAL DAILY LIZETH; Protocol Stop: 04/08/24 10:14 Last Admin: 03/27/24 08:41 Dose: 1 appl Allergies Allergies Allergy/AdvReac Type Severity Reaction Status Date / Time No Known Allergies Allergy Verified 04/24/23 08:39 Assessment & Plan Assessment & Plan (1) HTN (hypertension): Status: Acute Code(s): I10 - Essential (primary) hypertension (2) TIFFANY on CPAP: Status: Acute Code(s): G47.33 - Obstructive sleep apnea (adult) (pediatric) (3) Bipolar I disorder: Status: Acute Code(s): F31.9 - Bipolar disorder, unspecified Plan 03/25: VPA level 19.1. restart VPA and titrate to dosing more likely to produce a therapeutic level. restart/continue seroquel 400 QHS. add ativan 1 TID for apparent catatonia. T/C adding lithium or wellbutrin for augmentation. 03/26: substantially less slow and more verbal than yesterday. continue current mgmt for now. 03/27: continues daily improvement in PMR/paucity of thought. continue current mgmt. 03/28/2024: No changes to current plan. Appears to be very gradual improvements. Ongoing admission as unable to care for self Reason for continued inpatient stay Substantial Risk for: inability to function Time Spent With Patient Time: Total time managing care of this patient today ____ minutes.
[2024-03-28] MEDS: LORazepam 1 MG TABLET PO ×3 (08:10→21:09)
[2024-03-28] MEDS: Losartan Potassium 50 MG TABLET PO (08:10)
[2024-03-28] MEDS: Triamcinolone Acet 0.1 % Cream 15 GM TUBE 1 APPL TOPICAL (11:23)
[2024-03-28 19:20] VITALS: BP 138/83; PULSE 93; RESP 16; TEMP 36.2; O2SAT 95
[2024-03-28] MEDS: QUEtiapine Fumarate 400 MG TABLET PO (21:09)
[2024-03-28] MEDS: Divalproex Sodium ER 500 MG TAB.ER.24H 1500 MG PO (21:09)
[2024-03-29 08:00] VITALS: BP 111/62; PULSE 90; RESP 16; TEMP 36.7; O2SAT 95
[2024-03-29] MEDS: Losartan Potassium 50 MG TABLET PO (08:11)
[2024-03-29] MEDS: LORazepam 1 MG TABLET PO ×3 (08:11→22:09)
[2024-03-29] MEDS: Triamcinolone Acet 0.1 % Cream 15 GM TUBE 1 APPL TOPICAL (08:13)
--- NOTE | 2024-03-29 10:15 | HO.PSYCHPN ---
Subjective Subjective Date of Service: 03/29/24 Reason For Visit: Mental health crisis Interim History: As per nursing, taking meds (seroquel 400mg and ativan tid for catatonia). Trying to attend groups. More verbal today. Self care better. Sleep okay. However with comic writer, guarded, stated he was ok and walked off I'm going to group - this appeared driven by paranoia rather than a desire to go to group. Medication Compliance: Yes Side effects from medications: No Attending Groups: Intermittent Review of Systems Acute medical concerns: No Review of Systems Review of Systems Yes Unobtainable due to mental status Mental Status Exam Mental Status Exam Narrative: obese, adequately dressed and groomed. less PMR. not cooperative today. Speech faster responses and more verbal output compared to admission. May be some thought blocking. Affect blunted. mood not assessed. no SI/HI/AVH. Does appear paranoid and guarded. Insight and judgment does appear limited Diagnostics Vital Signs (24Hr): Vital Signs - 24 hr 03/28/24 19:20 03/29/24 08:00 Temperature 97.1 F 98.1 F Pulse Rate 93 90 Respiratory Rate 16 16 Blood Pressure 138/83 111/62 Pulse Oximetry 95 95 Oxygen Delivery Method Room Air Room Air BMI result Body Mass Index 41.1 Labs 03/25/24 07:55 03/24/24 13:49 Medications Medications Current Medications Acetaminophen (Acetaminophen 325 Mg Tablet) 650 mg PO Q6H PRN PRN Reason: Headache/Pain Mild Scale (1-3) Al Hydroxide/Mg Hydroxide (Magnesium Hydrox/Alum Hydrox 30 Ml Oral.Susp) 30 ml PO Q6H PRN PRN Reason: Heartburn/Nausea Clonidine HCl (Clonidine Hcl 0.1 Mg Tablet) 0.1 mg PO Q4H PRN; Protocol PRN Reason: SBP > 159 Divalproex Sodium (Divalproex Sodium Er 500 Mg Tab.Er.24h) 1,500 mg PO BEDTIME [facility] Last Admin: 03/28/24 21:09 Dose: 1,500 mg Hydroxyzine HCl (Hydroxyzine Hcl 25 Mg Tablet) 25 mg PO Q6H PRN PRN Reason: Anxiety Lorazepam (Lorazepam 1 Mg Tablet) 1 mg PO TID [facility] Last Admin: 03/29/24 08:11 Dose: 1 mg Losartan Potassium (Losartan Potassium 50 Mg Tablet) 50 mg PO DAILY LIZETH; Protocol Last Admin: 03/29/24 08:11 Dose: 50 mg Magnesium Hydroxide (Milk Of Magnesia 30 Ml Oral.Susp) 30 ml PO DAILY PRN PRN Reason: Constipation Nicotine Polacrilex (Nicotine Polacrilex 2 Mg Gum) 4 mg BUCCAL Q2H PRN PRN Reason: Nicotine Cravings Quetiapine Fumarate (Quetiapine Fumarate 400 Mg Tablet) 400 mg PO BEDTIME LIZETH Last Admin: 03/28/24 21:09 Dose: 400 mg Trazodone HCl (Trazodone Hcl 50 Mg Tablet) 50 mg PO BEDTIME MRX1 PRN PRN Reason: Insomnia Last Admin: 03/25/24 00:26 Dose: 50 mg Triamcinolone Acetonide (Triamcinolone Acet 0.1 % Cream 15 Gm Tube) 1 appl TOPICAL DAILY LIZETH; Protocol Stop: 04/08/24 10:14 Last Admin: 03/29/24 08:13 Dose: 1 appl Allergies Allergies Allergy/AdvReac Type Severity Reaction Status Date / Time No Known Allergies Allergy Verified 04/24/23 08:39 Assessment & Plan Assessment & Plan (1) HTN (hypertension): Status: Acute Code(s): I10 - Essential (primary) hypertension (2) TIFFANY on CPAP: Status: Acute Code(s): G47.33 - Obstructive sleep apnea (adult) (pediatric) (3) Bipolar I disorder: Status: Acute Code(s): F31.9 - Bipolar disorder, unspecified Plan 03/25: VPA level 19.1. restart VPA and titrate to dosing more likely to produce a therapeutic level. restart/continue seroquel 400 QHS. add ativan 1 TID for apparent catatonia. T/C adding lithium or wellbutrin for augmentation. 03/26: substantially less slow and more verbal than yesterday. continue current mgmt for now. 03/27: continues daily improvement in PMR/paucity of thought. continue current mgmt. 03/29/2024: No changes to current plan. Appears to be very gradual improvements. Ongoing admission as unable to care for self Reason for continued inpatient stay Substantial Risk for: inability to function Time Spent With Patient Time: Total time managing care of this patient today ____ minutes.
[2024-03-29 19:44] VITALS: BP 148/79; PULSE 89; RESP 18; TEMP 36.6; O2SAT 94
[2024-03-29] MEDS: QUEtiapine Fumarate 400 MG TABLET PO (22:09)
[2024-03-29] MEDS: Divalproex Sodium ER 500 MG TAB.ER.24H 1500 MG PO (22:09)
[2024-03-30 08:00] VITALS: BP 128/85; PULSE 86; RESP 14; TEMP 36.4; O2SAT 97
[2024-03-30 08:31] VITALS: BP 128/85
[2024-03-30] MEDS: LORazepam 1 MG TABLET PO ×3 (08:31→20:49)
[2024-03-30] MEDS: Losartan Potassium 50 MG TABLET PO (08:31)
[2024-03-30] MEDS: Triamcinolone Acet 0.1 % Cream 15 GM TUBE 1 APPL TOPICAL (08:32)
--- NOTE | 2024-03-30 13:41 | P.PNPSI_ITS ---
Subjective Subjective Date of Service: 03/30/24 Reason For Visit: Mental health crisis Interim History: less PMR, but still slowed. notable for disorganized, vague speech, lacking in semantic content. reporting his mood is up and down. feeling he is thinking too much, and he would like to slow the emotions down. per staff, endorsing anxiety but not depression. taking meds. attending groups. paranoid at times. Mental Status Exam Mental Status Exam Narrative: obese, adequately dressed and groomed. less PMR. cooperative. speech soft, less MARY; faster responses and more verbal output by the day. thoughts vague and disorganized. affect blunted. mood up and down. no SI/HI/AVH expressed. Diagnostics Vital Signs (24Hr): Vital Signs - 24 hr 03/29/24 19:44 03/30/24 08:00 03/30/24 08:31 Temperature 97.8 F 97.6 F Pulse Rate 89 86 Respiratory Rate 18 14 Blood Pressure 148/79 H 128/85 128/85 Pulse Oximetry 94 97 Oxygen Delivery Method Room Air Room Air BMI result Body Mass Index 41.1 Labs 03/25/24 07:55 03/24/24 13:49 Medications Medications Current Medications Acetaminophen (Acetaminophen 325 Mg Tablet) 650 mg PO Q6H PRN PRN Reason: Headache/Pain Mild Scale (1-3) Al Hydroxide/Mg Hydroxide (Magnesium Hydrox/Alum Hydrox 30 Ml Oral.Susp) 30 ml PO Q6H PRN PRN Reason: Heartburn/Nausea Clonidine HCl (Clonidine Hcl 0.1 Mg Tablet) 0.1 mg PO Q4H PRN; Protocol PRN Reason: SBP > 159 Divalproex Sodium (Divalproex Sodium Er 500 Mg Tab.Er.24h) 1,500 mg PO BEDTIME [facility] Last Admin: 03/29/24 22:09 Dose: 1,500 mg Hydroxyzine HCl (Hydroxyzine Hcl 25 Mg Tablet) 25 mg PO Q6H PRN PRN Reason: Anxiety Lorazepam (Lorazepam 1 Mg Tablet) 1 mg PO TID LIZETH Last Admin: 03/30/24 08:31 Dose: 1 mg Losartan Potassium (Losartan Potassium 50 Mg Tablet) 50 mg PO DAILY LIZETH; Protocol Last Admin: 03/30/24 08:31 Dose: 50 mg Magnesium Hydroxide (Milk Of Magnesia 30 Ml Oral.Susp) 30 ml PO DAILY PRN PRN Reason: Constipation Nicotine Polacrilex (Nicotine Polacrilex 2 Mg Gum) 4 mg BUCCAL Q2H PRN PRN Reason: Nicotine Cravings Quetiapine Fumarate (Quetiapine Fumarate 400 Mg Tablet) 400 mg PO BEDTIME LIZETH Last Admin: 03/29/24 22:09 Dose: 400 mg Trazodone HCl (Trazodone Hcl 50 Mg Tablet) 50 mg PO BEDTIME MRX1 PRN PRN Reason: Insomnia Last Admin: 03/25/24 00:26 Dose: 50 mg Triamcinolone Acetonide (Triamcinolone Acet 0.1 % Cream 15 Gm Tube) 1 appl TOPICAL DAILY LIZETH; Protocol Stop: 04/08/24 10:14 Last Admin: 03/30/24 08:32 Dose: 1 appl Allergies Allergies Allergy/AdvReac Type Severity Reaction Status Date / Time No Known Allergies Allergy Verified 04/24/23 08:39 Assessment & Plan Assessment & Plan (1) HTN (hypertension): Status: Acute Code(s): I10 - Essential (primary) hypertension (2) TIFFANY on CPAP: Status: Acute Code(s): G47.33 - Obstructive sleep apnea (adult) (pediatric) (3) Bipolar I disorder: Status: Acute Code(s): F31.9 - Bipolar disorder, unspecified Plan 03/25: VPA level 19.1. restart VPA and titrate to dosing more likely to produce a therapeutic level. restart/continue seroquel 400 QHS. add ativan 1 TID for apparent catatonia. T/C adding lithium or wellbutrin for augmentation. 03/26: substantially less slow and more verbal than yesterday. continue current mgmt for now. 03/27: continues daily improvement in PMR/paucity of thought. continue current mgmt. 03/29/2024: No changes to current plan. Appears to be very gradual improvements. Ongoing admission as unable to care for self. 03/30: more verbal, but verbal content notable for vagueness and disorganization. does c/o mood lability, rapid thoughts. continue current mgmt, check VPA and labs tomorrow NOC. Reason for continued inpatient stay Substantial Risk for: inability to function Time Spent With Patient Time: Total time managing care of this patient today _25___ minutes.
[2024-03-30 20:00] VITALS: BP 131/101; PULSE 91; RESP 18; TEMP 36.4; O2SAT 95
[2024-03-30] MEDS: QUEtiapine Fumarate 400 MG TABLET PO (20:49)
[2024-03-30] MEDS: Divalproex Sodium ER 500 MG TAB.ER.24H 1500 MG PO (20:49)
[2024-03-31 08:00] VITALS: BP 125/88; PULSE 87; RESP 18; TEMP 36.5; O2SAT 96
[2024-03-31] MEDS: Losartan Potassium 50 MG TABLET PO (08:42)
[2024-03-31] MEDS: LORazepam 1 MG TABLET PO ×3 (08:43→20:54)
[2024-03-31] MEDS: Triamcinolone Acet 0.1 % Cream 15 GM TUBE 1 APPL TOPICAL (08:43)
--- OUTSIDE RECORDS SUMMARY | 2024-03-31 13:43 | XMS_ITS | Continuity of Care Document ---
Author Organization [facility] Address [address] [place] [id number] Care Team Providers Care Patient Relations Representative Name Role Phone Nathanael SLOAN, Jason Wadsworth Primary Care Physician Encounter [id number] Date(s): 03/13/24 - 03/13/24 [facility] [address] [place] [id number] Encounter Type: Results Only Allergies, Adverse Reactions, Alerts No Known Allergies Immunizations Given and Recorded Vaccine Date Status Refusal Reason tetanus/diphtheria/pertussis, acel(Tdap) 03/16/08 Recorded Medications 3cc syringe with 22G 1in syringe 3cc syringe with 22G 1in syringe, See Instructions, # 30 each, Refills 1, Tot. Refills 1, Maintenance, to be used with testosterone weekly, 01/28/23 1:54:00 PM EDT, Supply, 183, cm, 01/28/23 13:03:00 EDT, Height, 140.3, kg, 10/25/21 8:17:00 EDT, Dry Weight Start Date: 01/28/23 Status: Ordered Quantity: 30.0 Unit: each Repeat number: 2 divalproex sodium 500 mg oral enteric coated tablet 3 tablet = 1,500 mg, By Mouth, Daily at bedtime, # 270 tablet, 1 Refills, Maintenance, 03/10/24 9:12:00 AM EST, Tablet, [facility] #[id number], 90 day supply, 183, cm, 01/28/23 13:03:00 EDT, Height Start Date: 03/10/24 Stop Date: 09/06/24 Status: Ordered Quantity: 270.0 Unit: tablet Repeat number: 2 SEROquel 400 mg oral tablet 1 tablet = 400 mg, By Mouth, Daily at bedtime, # 90 tablet, 1 Refills, Maintenance, 03/10/24 9:12:00 AM EST, Tablet, [facility] #[id number], 90 day supply, 183, cm, 01/28/23 13:03:00 EDT, Height Start Date: 03/10/24 Stop Date: 09/06/24 Status: Ordered Quantity: 90.0 Unit: tablet Repeat number: 2 Testosterone Cypionate 200 mg/mL intramuscular solution See Instructions, ADMINISTER 0.5 ML IN THE MUSCLE EVERY WEEK, # 5 mL, 5 Refills, Maintenance, 02/06/24 8:20:00 AM EDT, [facility] #[id number], 183, cm, 01/28/23 13:03:00 EDT, Height Start Date: 02/06/24 Status: Ordered Quantity: 5.0 Unit: mL Repeat number: 6 Testosterone Cypionate 200 mg/mL intramuscular solution = 100 mg, Intramuscular, Every week, # 5 mL, 2 Refills, Maintenance, 07/13/23 4:57:00 PM EDT, [facility] #[id number], Partial fill upon patient request if the prescription is for a schedule II opioid drug., 183, cm, 01/28/23 13:03:00 EDT, Height, 140.3, kg, 10/25/21 8:17:00 EDT, Dry Weight Start Date: 07/13/23 Status: Ordered Quantity: 5.0 Unit: mL Repeat number: 3 Problem List Condition Confirmation Course Effective Dates Status Health St [facility] Informant Bipolar 2 disorder Confirmed Active Major depressive disorder in remission Confirmed Active Secondary male hypogonadism Confirmed Active Severe obesity Confirmed Active Severe recurrent major depressive disorder with psychotic symptoms Confirmed Active Social History Social History Type Response Smoking Status Never smoker entered on: 08/15/17 Sex Sex Representation Male (finding) Patient Care team information Care Team Personnel Name: Jason Huffman MD Position: [facility] Physician - Primary Care Member Role: PCP Address: [address] [place] [address] Telecom: Name: Marilyn Johnson MA Position: [facility] Staff Member Role: Primary Care Nurse Name: Cleo Luciano MA Position: [facility] Amb Office Staff Member Role: Primary Care Nurse Name: Fern Araiza RN Position: [facility] RN Member Role: Primary Care Nurse Name: Shaylee Acosta RN Position: [facility] RN Member Role: Primary Care Nurse Name: Jahaira Esteban RN Position: [facility] RN Member Role: Primary Care Nurse Name: Esther Bryna RN Position: [facility] RN Member Role: Primary Care Nurse Name: Randy Mcdonald RN Position: [facility] RN Member Role: Primary Care Nurse Care Team Related Persons Name: LEONA ANDERSON Name: EBONI ANDERSON Name: JORGE A ANDERSON Insurance Providers Guarantor name: ORIN MONICA Health Plan Information #: 1 Payer: [facility] Member Number: NA Policy Number: NA Group Number: NA
--- OUTSIDE RECORDS SUMMARY | 2024-03-31 13:43 | XMS_ITS | Data Portability ---
[facility] Organization [facility], Main Office Address [address] [place] [address] Care Team Providers Care Direct Of Real Estate Name Role Phone [facility] Psychiatri st GAYE RAMIREZ Primary Care Provider VIN JUNIOR Duty Officer JOHANNE MOLINA Poultry Trimmer Assessment No assessment recorded. Plan of Treatment Reminders Order Date Submit Date Provider Last Modified By Organization Details Last Modified Time Details Appointments None record ed. Lab CMP, serum or plasma 2022 023 NILAM [facility], [address], [place], [address], 3 00:46:22 testos terone , total, serum 2022 023 NIL[facility], [address], [place], [address], 3 03:53:16 lipid panel, serum 2022 023 N[facility], [address], [place], [address], 3 00:46:23 HbA1c (hemog lobin A1c), blood 2022 023 NILAM [facility], [address], [place], [address], 3 16:39:59 ESR (eryth rocyte sedime ntatio n rate), blood 2022 023 NILAM [facility], [address], [address], [place], [address], 3 16:51:48 C-reac tive protei n, quanti tative , serum or plasma 2022 023 NIL[facility], [address], [address], [place], [address], 3 01:00:32 uric acid, serum or plasma 2022 023 N[facility], [address], [address], [place], [address], 3 00:46:25 rf (rheum atoid factor ), serum 2022 023 NILAM [facility], [address], [address], [place], [address], 3 00:46:24 JUAN CARLOS (antin uclear antibo dies) screen , serum 2022 023 NILAM [facility], [address], [address], [place], [address], 3 23:06:14 parvov irus B19 igg+ig m Ab, serum 2022 023 NILAM [facility], [address], [address], [place], [address], 3 17:06:27 hla-B2 7 genoty pe, blood 2022 023 NILAM [facility], [address], [address], [place], [address], 3 15:07:04 lyme diseas e Ab, total, serum 2022 023 [email or web address] [facility], [address], [address], [place], [address], 3 11:54:11 HbA1c (hemog lobin A1c), blood 2023 024 NILAM [facility], [address], [address], [place], [address], 4 16:13:10 lipid panel, serum 2023 024 NIL[facility], [address], [address], [place], [address], 4 22:46:16 CMP, serum or plasma 2023 024 N[facility], [address], [address], [place], [address], 4 22:26:32 vitami n D, 25-hyd mario, total, serum 2023 024 NIL[facility], [address], [address], [place], [address], 4 22:57:18 HbA1c (hemog lobin A1c), blood 2023 024 NILAM [facility], [address], [facility] [address], [place], [address], 4 06:08:20 vitami n D, 25-hyd mario, total, serum 2023 024 NIL[facility], [address] [place], [address], 4 06:08:22 PSA, total, serum or plasma 2023 024 NILAM [facility], [address], [facility] [address], [place], [address], 4 06:08:21 lipid panel, serum 2023 024 [place] [facility], [address], [facility] [address], [place], [address], 4 06:08:19 CMP, serum or plasma 2023 024 [place] [facility], [address], [facility] [address], [place], [address], 4 06:08:19 TSH, ultra- sensit glenroy, serum 2023 024 [place] [facility], [address], [facility] [address], [place], [address], 4 06:08:23 HbA1c (hemog lobin A1c), blood 2023 025 [facility], [address] [place], [address], 4 13:51:34 BMP, serum or plasma 2023 025 [facility], [address] [place], [address], 4 13:51:34 noninv asive colore ctal cancer DNA + occult blood screen ing, QL, stool 2023 024 [facility] (Cologuard Orders Only), [address], [address], [place], [address], 4 13:51:50 Referral nutrit ionist /dieti domenico referr al 2022 023 [email or web address] Not available 3 13:19:07 gastro entero logist referr al - Needs colon cancer screen ing 2022 023 [facility], [address], [place], [address], 4 12:49:[address] referr al 2022 023 [email or web address] [facility], [address] [place], [address], 3 16:19:53 orthop edic surgeo n referr al - for follow up on right 5th digit fractu re 2022 023 [email or web address] [facility], [address] [place] [address] [place], [address], 3 11:18:46 dermat ologis t referr al - for psoria sis manage ment 2022 023 amaya Molina MD, [address] [place] [address] [place], [address], 4 10:21:14 endocr inolog y referr al - for follow up on low testos terone 2022 023 Lucie Onel, [address] [place], [address], 3 13:28:26 nutrit ionist /dieti domenico referr al 2023 024 Not available 4 15:52:41 Procedures colono scopy screen ing (PROC) 2022 023 daryl In-Office Order, Internal Use Only DO Not Attach Compendium DO Not Attach Compendium, Do Not Delete/merge, [address] 3 13:08:47 Surgeries None record ed. Imaging None record ed. Medication Orders losart an 50 mg tablet 2023 024 [id number], [address] [facility] [place], [place], [id number], 4 13:51:45 Patient Targets Encounter Date Encounter Id Patient Goals Patient Target Last Modified By Organization Details Last Modified Time 09/20/2022 [id number] assistant terminal manager goal of Excess Body Weight Loss % 5 Not available Not available Not available Pt advised and agrees to work on self-monitoring behaviors; begin an appropriate diet for weight loss (such as a low carbohydrate diet), to do moderate exercise (such as walking) for approximately 150 minutes per week; and to identify desirable and timely rewards that will reinforce achievement of specific weight loss goals. pmadden Not available 09/20/2022 13:24:15 05/15/2023 [id number] Ongoing of LDL Direct <100 Not available Not available Not available Ongoing of LDL Direct yearly Not available Not available Not available Pt agrees to follow low fat diet, avoid saturated fats , decrease carbohydrate intake to 45 - 50 gm per meal , pt agrees to develop a regular pattern of exercise such as walking 30 minutes a day 3 times a week, Pt will keep a record of exercise and activity level Patient preferences and goals incorporated in plan and updated/modified as needed to reflect progress toward goal. pmadden Not available 05/15/2023 14:53:49 03/16/2024 [id number] shelter goal of Blood Pressure Not available Not available Not available shelter goal of Exercise level Not available Not available Not available shelter goal of Tobacco Smoking Status Not available Not available Not available shelter goal of Excess Body Weight Loss % 5 Not available Not available Not available Ongoing of LDL Direct yearly Not available Not available Not available Ongoing of LDL Direct <100 Not available Not available Not available Pt advised and agrees to eat a low salt low fat diet; to do moderate exercise (such as walking) 150 minutes per week; to limit alcohol intake (goal of 2 drinks per day or less for men or 1 for woman). and to monitor dietary sodium. Will monitor home blood pressures and bring readings to appointments. Patient preferences and goals incorporated in plan and updated/modified as needed to reflect progress toward goal.Pt agrees to follow low fat diet, avoid saturated fats , decrease carbohydrate intake to 45 - 50 gm per meal , pt agrees to develop a regular pattern of exercise such as walking 30 minutes a day 3 times a week, Pt will keep a record of exercise and activity level Patient preferences and goals incorporated in plan and updated/modified as needed to reflect progress toward goal.Pt advised and agrees to work on self-monitoring behaviors; begin an appropriate diet for weight loss (such as a low carbohydrate diet), to do moderate exercise (such as walking) for approximately 150 minutes per week; and to identify desirable and timely rewards that will reinforce achievement of specific weight loss goals. pmadden Not available 03/16/2024 13:54:59 Patient Instructions Encounter Date Encounter Id Patient Instructions Last Modified By Organization Details Last Modified Time 09/20/2022 [id number] Well Visit, Ages 18 to 65: Care Instructions pmadden Not available 09/20/2022 11:47:08 testicular self-exam: care instructions pmadden Not available 09/20/2022 11:47:08 A healthy lifestyle: care instructions pmadden Not available 09/20/2022 11:47:07 starting a weight loss plan: care instructions pmadden Not available 09/20/2022 11:47:07 Nutrition Referral and Weight Management Follow-up Information pmadden Not available 09/20/2022 11:47:07 learning about colon cancer pmadden Not available 09/20/2022 11:47:08 Medications (OTC, herbal therapies, supplements) reviewed and reconciled with patient and or caregiver, including potential side effects, drug interactions, instructions, and the consequences of not taking medication. Reviewed potential barriers to medication adherence, such as side effects from medication or cost of medication. pmadden Not available 09/20/2022 11:46:09 12/20/2022 [id number] broken toe: care instructions awychowski Not available 12/20/2022 12:18:24 psoriasis: care instructions awychowski Not available 12/20/2022 12:18:24 At [facility] follow up visit, all current and discharge medications (OTC, herbal therapies, supplements) reviewed and reconciled with patient and or caregiver, including potential side effects, drug interactions, instructions, and the consequences of not taking medication. Reviewed potential barriers to medication adherence, such as side effects from medication or cost of medication. lanee Not available 12/20/2022 11:52:40 05/15/2023 [id number] learning about stress pmadden Not available 05/15/2023 14:59:59 Mental Health Information pmadden Not available 05/15/2023 14:59:59 Medications (OTC, herbal therapies, supplements) reviewed and reconciled with patient and or caregiver, including potential side effects, drug interactions, instructions, and the consequences of not taking medication. Reviewed potential barriers to medication adherence, such as side effects from medication or cost of medication. pmadden Not available 05/15/2023 14:30:14 02/08/2024 [id number] Prostate Cancer Screening pmadden Not available 02/08/2024 10:41:46 please give oown for 10.7, 10.13, 10.15 - is able to rtw on 02.10.24 pmadden Not available 02/08/2024 10:32:34 03/16/2024 [id number] starting a weight loss plan: care instructions pmadden Not available 03/16/2024 13:51:34 Nutrition Referral and Weight Management Follow-up Information pmadden Not available 03/16/2024 13:51:34 high blood pressure: care instructions pmadden Not available 03/16/2024 13:51:35 dash diet: care instructions pmadden Not available 03/16/2024 13:51:35 low sodium diet (2,000 milligram): care instructions pmadden Not available 03/16/2024 13:51:34 colon cancer screening: care instructions pmadden Not available 03/16/2024 13:51:34 Well Visit, Ages 18 to 65: Care Instructions pmadden Not available 03/16/2024 13:51:34 Medications (OTC, herbal therapies, supplements) reviewed and reconciled with patient and or caregiver, including potential side effects, drug interactions, instructions, and the consequences of not taking medication. Reviewed potential barriers to medication adherence, such as side effects from medication or cost of medication. pmadden Not available 03/16/2024 13:55:16 Reason for Referral Coke Burner/dietitian Refer ral for Body mass index 40+ - severely obese Referring Physician: Gaye Ramirez, Internal Medicine, Encounter Date: 09/20/2022 Child Care Worker Referral for Screening for malignant neoplasm of colon Needs colon cancer screening Referring Physician: Gaye Ramirez, Internal Medicine, Encounter Date: 09/20/2022 Duty Officer Referral for Multiple joint pain Referring Physician: Gaye Ramirez, Internal Medicine, Encounter Date: 09/20/2022 Endocrinology Referral for H ypogonadism for follow up on low testosterone Referring Physician: Manjinder Valladares, Family Medicine, Encounter Date: 12/20/2022 Poultry Trimmer Referral for P soriasis for psoriasis management Referring Physician: Manjinder Valladares [facility], Encounter Date: 12/20/2022 Orthopedic Surgeon Referral for Fracture of phalanx of foot seen per office for follow up on right 5th digit fracture Referring Physician: Manjinder Valladares [facility], Encounter Date: 12/20/2022 Coke Burner/dietitian Refer ral for Body mass index 40+ - severely obese Referring Physician: Gaye Ramirez, Internal Medicine, Encounter Date: 03/16/2024 Results Created Date Observation Date Name Description Value Unit Range Abnormal Flag Note LastModifiedBy Organization Detail LastModifiedTime 12/19/19 23 12/18/2022 HEMOG LOBIN A1C hemoglobin A1C 5.5 % (4.0-5 .6) MONIT ORING : In known diabe tic patie nts, hemog lobin A1c targe ts shoul d be discu ssed with healt h care provi wilian. DIAGN OSTIC USE: The Ameri can Diabe samina Assoc iatio n (ADA) and the World Healt h Organ izati on (WHO) recom mend the use of HbA1c to diagn ose diabe samina using a thres hold of 6.5%. Patie nts who have an HbA1c betwe en 5.7% and 6.4% are consi dered at incre ased risk for devel oping diabe samina in the futalfred BRIGGS ON: False ly low HbA1c resul ts may be obser ck in patie nts with hemol ytic anemi a, homoz ygous forms of abnor mal hemog lobin (e.g. SS, CC, SC), pregn helen, recen t blood loss or hemog lobin F great er than 7%. Fruct osami ne may be used as an alter gayle test in these cases . REFER ENCE: ADA: Stand ards of Medic al Care in [place] sam[place] 2019, The Journ al of Clini nir and Appli ed Resea rch and Educa tion Volum e 43, Suppl ement 1 Not Available [facility] [address], [place], [address], 12/18/2022 16:39:59 12/19/19 23 12/18/2022 SEDIM ENTAT ION RATE, AUTOM ATED sedimentatio n rate,automat ed 12 mm/HR (0-15) Not Available [facility] [address] [place], [address], 12/18/2022 16:51:48 12/19/19 23 12/19/2022 COMPR EHENS GLENROY METAB OLIC PANL glucose 96 mg/dL (70-99 ) Not Available [facility] [address] [place] [place], [address], 12/19/2022 00:46:22 12/19/19 23 12/19/2022 COMPR EHENS GLENROY METAB OLIC PANL BUN 16 mg/dL (6-20) Not Available [facility] [address] [place], [address], 12/19/2022 00:46:22 12/19/19 23 12/19/2022 COMPR EHENS GLENROY METAB OLIC PANL creatinine 0.9 mg/dL (0.7-1 .2) Not Available [facility] [address] [place], [address], 12/19/2022 00:46:22 12/19/19 23 12/19/2022 COMPR EHENS GLENROY METAB OLIC PANL sodium 141 mmol/ L (133-1 45) Not Available [facility] [address] [place], [address], 12/19/2022 00:46:22 12/19/19 23 12/19/2022 COMPR EHENS GLENROY METAB OLIC PANL potassium 4.7 mmol/ L (3.6-5 .2) Not Available [facility] [address] [place], [address], 12/19/2022 00:46:22 12/19/19 23 12/19/2022 COMPR EHENS GLENROY METAB OLIC PANL chloride 102 mmol/ L (98-10 7) Not Available [facility] [address] [place], [address], 12/19/2022 00:46:22 12/19/19 23 12/19/2022 COMPR EHENS GLENROY METAB OLIC PANL bicarbonate 28 mmol/ L (22-29 ) Not Available [facility] [address] [place], [address], 12/19/2022 00:46:22 12/19/19 23 12/19/2022 COMPR EHENS GLENROY METAB OLIC PANL anion gap 11 (4-17) Not Available [facility] [address] [place], [address], 12/19/2022 00:46:22 12/19/19 23 12/19/2022 COMPR EHENS GLENROY METAB OLIC PANL albumin 4.6 gm/dL (3.4-4 .8) Not Available [facility] [address] [place], [address], 12/19/2022 00:46:22 12/19/19 23 12/19/2022 COMPR EHENS GLENROY METAB OLIC PANL calcium 9.3 mg/dL (8.6-1 0.5) Not Available [facility] [address] [place], [address], 12/19/2022 00:46:22 12/19/19 23 12/19/2022 COMPR EHENS GLENROY METAB OLIC PANL bilirubin,to robin 0.3 mg/dL (0-1.2 ) Not Available [facility] [address] [place], [address], 12/19/2022 00:46:22 12/19/19 23 12/19/2022 COMPR EHENS GLENROY METAB OLIC PANL total protein 7.1 gm/dL (6.2-8 .2) Not Available [facility] [address] [place], [address], 12/19/2022 00:46:22 12/19/19 23 12/19/2022 COMPR EHENS GLENROY METAB OLIC PANL Ag ratio 1.8 Not Available [facility] [address] [place], [address], 12/19/2022 00:46:22 12/19/19 23 12/19/2022 COMPR EHENS GLENROY METAB OLIC PANL AST 46 U/L (0-40) high Not Available [facility] [address] [place], [address], 12/19/2022 00:46:22 12/19/19 23 12/19/2022 COMPR EHENS GLENROY METAB OLIC PANL alk phos 57 U/L (40-12 9) Not Available [facility] [address] [place], [address], 12/19/2022 00:46:22 12/19/19 23 12/19/2022 COMPR EHENS GLENROY METAB OLIC PANL ALT 54 U/L (0-41) high Not Available [facility] [address] [place], [address], 12/19/2022 00:46:22 12/19/19 23 12/19/2022 COMPR EHENS GLENROY METAB OLIC PANL estimated GFR creatinine 105 mL/mi n/1.7 3_M2 Creat inine based estim ated glome rular filtr ation (eGFR ) in adult s is calcu lated using the Natio nal Kidne y Found ation recom maya d 2020 CKD-E PI equat ion. Estim ates GFR from serum creat inine , age and sex. Not Available [facility] [address] [place], [address], 12/19/2022 00:46:22 12/19/19 23 12/19/2022 LIPID PANEL cholesterol, total 177 mg/dL (<200) Not Available [facility] [address] [place], [address], 12/19/2022 00:46:23 12/19/19 23 12/19/2022 LIPID PANEL triglyceride 186 mg/dL (<150) high Not Available [facility] [address] [place], [address], 12/19/2022 00:46:23 12/19/19 23 12/19/2022 LIPID PANEL HDL chol 32 mg/dL (>39) low Not Available [facility] [address] [place], [address], 12/19/2022 00:46:23 12/19/19 23 12/19/2022 LIPID PANEL LDL cholesterol, calculated 108 mg/dL (0-130 ) Not Available [facility] [address] [place], [address], 12/19/2022 00:46:23 12/19/1912/19/2022 LIPID PANEL non HDL cholesterol (calc) 145 mg/dL (<160) Not Available [facility] [address] [place], [address], 12/19/2022 00:46:23 12/19/1912/19/2022 RHEUM ATOID FACTO R rheumatoid factor 10.0 IU/mL (<14) Not Available [facility] [address] [place], [address], 12/19/2022 00:46:24 12/19/1912/19/2022 URIC ACID uric acid 6.9 mg/dL (2.6-8 .7) Not Available [facility] [address] [place], [address], 12/19/2022 00:46:25 12/19/1912/19/2022 C-ODALIS CTIVE PROTE IN C-reactive protein <0.3 mg/dL (0-0.5 ) Not Available [facility] [address] [place], [address], 12/19/2022 01:00:32 12/19/1912/19/2022 TESTO STERO NE testosterone 210 NG/dL (280-8 00) low Not Available [facility] [address] [place], [address], 12/19/2022 03:53:16 12/19/19 23 12/19/2022 LYME AB W/REF ROHINI lyme Ab w/reflex (neg) NEGAT GLENROY NO ANTIB EMY TO BORRE LLIA BURGD ORFER I DETEC ANGEL. PATIE NTS IN EARLY STAGE S OF INFEC TION OR WHO WERE GIVEN EARLY ANTIB IOTIC TREAT MENT MAY NOT PRODU CE DETEC TABLE LEVEL S OF ANTIB EMY. THESE PATIE NTS WOULD BENEF IT FROM REPEA T TESTI NG IN 2 TO 4 WEEKS . Testi ng perfo rmed by the Bio-R ad BioPl ex 2200 multi plex flow immun oassa y syste m Not Available [facility] [address], [place], [address], 12/19/2022 10:41:19 12/19/19 23 12/20/2022 ANTI- NUCLE AR ANTIB EMY SCREE N anti-nuclear antibody screen NEGATI VE (NOTE ) Negat glenroy <1:80 Borde rline 1:80 Posit glenroy >1:80 ICAP nomen annatxochitl re: AC-0 For more infor nic spear about Hep-2 cell patte rns use ANApa ttern s.org , the offic ial websi te for the Inter natio nal Conse nsus on Antin uclea r Antib emy (JUAN CARLOS) Patte rns (ICAP ). Test perfo rmed by [facility], [address], [place] [address] Not Available [facility] [address], [place], [address], 12/20/2022 23:06:14 12/19/19 23 12/21/2022 PARVO -B19 AB parvo IgM 0.5 Refer ence range : 0.0 to 0.8 Unit: index (NOTE ) Negat glenroy <0.9 Equiv ocal 0.9 - 1.1 Posit glenroy >1.1 Not Available [facility] [address], [place], [address], 12/21/2022 17:06:27 12/19/19 23 12/21/2022 PARVO -B19 AB parvo IgG 4.7 high Refer ence range : 0.0 to 0.8 Unit: index (NOTE ) Negat glenroy <0.9 Equiv ocal 0.9 - 1.1 Posit glenroy >1.1 Test perfo rmed by [facility], [address], [place] [address] Not Available [facility] [address], [place], [address], 12/21/2022 17:06:27 12/19/19 23 12/26/2022 HLA B27 ANTIG EN hla-B27 antigen NEGATI VE (NOTE ) HLA-B *27 Negat glenroy B27 allel e inter preta tion for all loci based on IMGT/ HLA datab ase versi on This test was devel oped and its perfo rmanc e odell cteri stics deter mined by [facility]. It has not been clear ed or appro ck by the Food and Drug Admin istra tion. [facility] CLIA ID Jevon r [id number] THis test was perfo rmed using Polym erase Chain React ion (PCR) and Seque nce Speci fic Oligo nucle otide Probe s (SSOP ) techn ique. Seque nce Based Typin g (SBT) may be used as a suppl ement al metho d when neces mati. If you have quest ions, pleas e call HLA custo ralf servi ce at [phone] or email at [facility] [email or web address]. Not Available [facility] [address], [place], [address], 12/26/2022 15:07:04 05/22/19 24 05/22/2023 HEMOG LOBIN A1C hemoglobin A1C 5.5 % (4.0-5 .6) MONIT ORING : In known diabe tic patie nts, hemog lobin A1c targe ts shoul d be discu ssed with healt h care provi wilian. DIAGN OSTIC USE: The Ameri can Diabe samina Assoc iatio n (ADA) and the World Healt h Organ izati on (WHO) recom mend the use of HbA1c to diagn ose diabe samina using a thres hold of 6.5%. Patie nts who have an HbA1c betwe en 5.7% and 6.4% are consi dered at incre ased risk for devel oping diabe samina in the carmen BRIGGS ON: False ly low HbA1c resul ts may be obser ck in patie nts with hemol ytic anemi a, homoz ygous forms of abnor mal hemog lobin (e.g. SS, CC, SC), pregn helen, recen t blood loss or hemog lobin F great er than 7%. Fruct osami ne may be used as an alter gayle test in these cases . REFER ENCE: ADA: Stand ards of Medic al Care in [place] sam[place] 2019, The Journ al of Clini nir and Appli ed Resea rch and Educa tion Volum e 43, Suppl ement 1 Not Available [facility] [address] [place], [address], 05/22/2023 16:13:10 05/22/19 24 05/22/2023 COMPR EHENS GLENROY METAB OLIC PANL glucose 99 mg/dL (70-99 ) Not Available [facility] [address] [place], [address], 05/22/2023 22:26:32 05/22/19 24 05/22/2023 COMPR EHENS GLENROY METAB OLIC PANL BUN 14 mg/dL (6-20) Not Available [facility] [address] [place], [address], 05/22/2023 22:26:32 05/22/19 24 05/22/2023 COMPR EHENS GLENROY METAB OLIC PANL creatinine 0.9 mg/dL (0.7-1 .2) Not Available [facility] [address] [place], [address], 05/22/2023 22:26:32 05/22/19 24 05/22/2023 COMPR EHENS GLENROY METAB OLIC PANL sodium 141 mmol/ L (133-1 45) Not Available [facility] [address] [place] [place], [address], 05/22/2023 22:26:32 05/22/19 24 05/22/2023 COMPR EHENS GLENROY METAB OLIC PANL potassium 5.3 mmol/ L (3.6-5 .2) high Not Available [facility] [address] [place], [address], 05/22/2023 22:26:32 05/22/19 24 05/22/2023 COMPR EHENS GLENROY METAB OLIC PANL chloride 102 mmol/ L (98-10 7) Not Available [facility] [address] [place], [address], 05/22/2023 22:26:32 05/22/19 24 05/22/2023 COMPR EHENS GLENROY METAB OLIC PANL bicarbonate 27 mmol/ L (22-29 ) Not Available [facility] [address] [place], [address], 05/22/2023 22:26:32 05/22/19 24 05/22/2023 COMPR EHENS GLENROY METAB OLIC PANL anion gap 12 (4-17) Not Available [facility] [address] [place], [address], 05/22/2023 22:26:32 05/22/19 24 05/22/2023 COMPR EHENS GLENROY METAB OLIC PANL albumin 4.3 gm/dL (3.4-4 .8) Not Available [facility] [address] [place], [address], 05/22/2023 22:26:32 05/22/19 24 05/22/2023 COMPR EHENS GLENROY METAB OLIC PANL calcium 9.5 mg/dL (8.6-1 0.5) Not Available [facility] [address] [place], [address], 05/22/2023 22:26:32 05/22/19 24 05/22/2023 COMPR EHENS GLENROY METAB OLIC PANL bilirubin,to robin 0.3 mg/dL (0-1.2 ) Not Available [facility] [address] [place], [address], 05/22/2023 22:26:32 05/22/19 24 05/22/2023 COMPR EHENS GLENROY METAB OLIC PANL total protein 7.1 gm/dL (6.2-8 .2) Not Available [facility] [address] [place], [address], 05/22/2023 22:26:32 05/22/19 24 05/22/2023 COMPR EHENS GLENROY METAB OLIC PANL Ag ratio 1.5 Not Available [facility] [address] [place], [address], 05/22/2023 22:26:32 05/22/19 24 05/22/2023 COMPR EHENS GLENROY METAB OLIC PANL AST 39 U/L (0-40) Not Available [facility] [address] [place], [address], 05/22/2023 22:26:32 05/22/19 24 05/22/2023 COMPR EHENS GLENROY METAB OLIC PANL alk phos 45 U/L (40-12 9) Not Available [facility] [address] [place], [address], 05/22/2023 22:26:32 05/22/19 24 05/22/2023 COMPR EHENS GLENROY METAB OLIC PANL ALT 29 U/L (0-41) Not Available [facility] [address] [place], [address], 05/22/2023 22:26:32 05/22/19 24 05/22/2023 COMPR EHENS GLENROY METAB OLIC PANL estimated GFR creatinine 103 mL/mi n/1.7 3_M2 Creat inine based estim ated glome rular filtr ation (eGFR ) in adult s is calcu lated using the Natio nal Kidne y Found ation recom maya d 2020 CKD-E PI equat ion. Estim ates GFR from serum creat inine , age and sex. Not Available [facility] [address] [place], [address], 05/22/2023 22:26:32 05/22/19 24 05/22/2023 LIPID PANEL cholesterol, total 177 mg/dL (<200) Not Available [facility] [address] [place], [address], 05/22/2023 22:46:16 05/22/19 24 05/22/2023 LIPID PANEL triglyceride 168 mg/dL (<150) high Not Available [facility] [address] [place], [address], 05/22/2023 22:46:16 05/22/19 24 05/22/2023 LIPID PANEL HDL chol 36 mg/dL (>39) low Not Available [facility] [address] [place], [address], 05/22/2023 22:46:16 05/22/19 24 05/22/2023 LIPID PANEL LDL cholesterol, calculated 108 mg/dL (0-130 ) Not Available [facility] [address] [place], [address], 05/22/2023 22:46:16 05/22/19 24 05/22/2023 LIPID PANEL non HDL cholesterol (calc) 141 mg/dL (<160) Not Available [facility] [address] [place], [address], 05/22/2023 22:46:16 05/22/19 24 05/22/2023 25OH VITAM IN D 25OH vitamin D 76.4 NG/mL (20-50 ) high Not Available [facility] [address] [place], [address], 05/22/2023 22:57:18 03/13/20 24 03/13/2024 COMP. METAB OLIC PANEL (14) glucose 104 mg/dL 70-99 above high normal Not Available [facility] ([facility]) [address] [facility] [place], [address], 03/14/2024 06:08:18 03/13/20 24 03/13/2024 COMP. METAB OLIC PANEL (14) BUN 14 mg/dL 6-24 normal Not Available [facility] ([facility]) [address] [place], [address], 03/14/2024 06:08:18 03/13/20 24 03/13/2024 COMP. METAB OLIC PANEL (14) creatinine 0.88 mg/dL 0.76-1 .27 normal Not Available [facility] ([facility]) [address] [facility] [place], [address], 03/14/2024 06:08:18 03/13/20 24 03/13/2024 COMP. METAB OLIC PANEL (14) eGFR 106 mL/mi n/1.7 3 >59 normal Not Available [facility] ([facility]) [address] [place], [address], 03/14/2024 06:08:18 03/13/20 24 03/13/2024 COMP. METAB OLIC PANEL (14) BUN/creatini ne ratio 16 9-20 normal Not Available [facility]) [address] [place], [address], 03/14/2024 06:08:18 03/13/20 24 03/13/2024 COMP. METAB OLIC PANEL (14) sodium 139 mmol/ L 134-14 4 normal Not Available [facility] ([facility]) [address] [place], [address], 03/14/2024 06:08:18 03/13/20 24 03/13/2024 COMP. METAB OLIC PANEL (14) potassium 4.3 mmol/ L 3.5-5. 2 normal Not Available [facility] ([facility]) [address] [facility], [place], [address], 03/14/2024 06:08:18 03/13/20 24 03/13/2024 COMP. METAB OLIC PANEL (14) chloride 101 mmol/ L 96-106 normal Not Available [facility] ([facility]) [address] [place], [address], 03/14/2024 06:08:18 03/13/20 24 03/13/2024 COMP. METAB OLIC PANEL (14) carbon dioxide, total 20 mmol/ L 20-29 normal Not Available [facility] ([facility]) [address] [place], [address], 03/14/2024 06:08:18 03/13/20 24 03/13/2024 COMP. METAB OLIC PANEL (14) calcium 9.4 mg/dL 8.7-10 .2 normal Not Available [facility] ([facility]) [address] [place], [address], 03/14/2024 06:08:18 03/13/20 24 03/13/2024 COMP. METAB OLIC PANEL (14) protein, total 7.9 g/dL 6.0-8. 5 normal Not Available [facility] ([facility]) [address] [place], [address], 03/14/2024 06:08:18 03/13/20 24 03/13/2024 COMP. METAB OLIC PANEL (14) albumin 4.8 g/dL 4.1-5. 1 normal Not Available [facility] ([facility]) [address] [place], [address], 03/14/2024 06:08:18 03/13/20 24 03/13/2024 COMP. METAB OLIC PANEL (14) globulin, total 3.1 g/dL 1.5-4. 5 Not Available [facility] ([facility]) [address] [place], [address], 03/14/2024 06:08:18 03/13/20 24 03/13/2024 COMP. METAB OLIC PANEL (14) bilirubin, total 0.2 mg/dL 0.0-1. 2 normal Not Available [facility] ([facility]) [address] [facility] [place], [address], 03/14/2024 06:08:18 03/13/20 24 03/13/2024 COMP. METAB OLIC PANEL (14) alkaline phosphatase 54 IU/L 44-121 normal Not Available [facility] [address] [facility] [place], [address], 03/14/2024 06:08:18 03/13/20 24 03/13/2024 COMP. METAB OLIC PANEL (14) AST (SGOT) 26 IU/L 0-40 normal Not Available [facility] ([facility]) [address] [place], [address], 03/14/2024 06:08:18 03/13/20 24 03/13/2024 COMP. METAB OLIC PANEL (14) ALT (SGPT) 39 IU/L 0-44 normal Not Available [facility] ([facility]) [address] [place], [address], 03/14/2024 06:08:18 03/13/20 24 03/13/2024 LIPID PANEL cholesterol, total 171 mg/dL 100-19 9 normal Not Available [facility] ([facility]) [address] [place], [address], 03/14/2024 06:08:19 03/13/20 24 03/13/2024 LIPID PANEL triglyceride s 149 mg/dL 0-149 normal Not Available [facility] ([facility]) [address] [place], [address], 03/14/2024 06:08:19 03/13/20 24 03/13/2024 LIPID PANEL HDL cholesterol 32 mg/dL >39 below low normal Not Available [facility] ([facility]) [address] [place], [address], 03/14/2024 06:08:19 03/13/20 24 03/13/2024 LIPID PANEL VLDL cholesterol nir 27 mg/dL 5-40 Not Available [facility]) [address] [place], [address], 03/14/2024 06:08:19 03/13/20 24 03/13/2024 LIPID PANEL LDL chol calc (rust) 112 mg/dL 0-99 above high normal Not Available [facility] ([facility]) [address] [place], [address], 03/14/2024 06:08:19 03/13/20 24 03/13/2024 LIPID PANEL LDL calc comment: TELEVISION TUBE INSPECTOR Not Available [facility] ([facility]) [address] [place], [address], 03/14/2024 06:08:19 03/13/20 24 03/14/2024 HEMOG LOBIN A1C hemoglobin A1C 6.2 % 4.8-5. 6 above high normal Predi abete s: 5.7 - 6.4 Diabe samina: >6.4 Glyce moraima contr ol for adult s with diabe samina: <7.0 Not Available [facility] ([facility]) [address] [place], [address], 03/14/2024 06:08:20 03/13/20 24 03/14/2024 PROST ATE-S PECIF IC AG prostate specific Ag 0.6 NG/mL 0.0-4. 0 normal Ilya ECLIA metho dolog y. Accor ding to the Ameri can Urolo gical Assoc iatio n, Serum PSA shoul d decre ase and remai n at undet ectab le level s after radic al prost atect rosendo. The AUA defin es bioch emica l recur rence as an initi al PSA value 0.2 ng/mL or great er follo wed by a subse quent confi rmato ry PSA value 0.2 ng/mL or great er. Value s obtai richy with diffe rent assay metho ds or kits canno t be used inter amaya eably . Resul ts canno t be inter prete d as absol nazia evide nce of the prese nce or absen ce of formerly [facility] bhavik disea se. Not Available [facility] ([facility]) [address] [facility], [place], [address], 03/14/2024 06:08:21 03/13/20 24 03/14/2024 VITAM IN D, 25-HY DROXY vitamin D, 25-hydroxy 78.5 NG/mL 30.0-1 00.0 Vitam in D defic iency has been defin ed by the Insti tute of Medic ine and an Endoc rine Socie ty pract ice guide line as a level of serum 25-OH vitam in D less than 20 ng/mL (1,2) . The Endoc rine Socie ty went on to furth er defin e vitam in D insuf ficie ncy as a level betwe en 21 and 29 ng/mL (2). 1. IOM (Inst itute of Medic ine). 2009. Dieta ry refer ence intak es for calci um and D. Jan gutierrez [place]: The [facility] . 2. Gilmar alcocer MF, Damien downing [place], Hossein off-F antonioar i SIMMONS, et al. Evalu ation , treat ment, and preve ntion of vitam in D defic iency : an Endoc rine Socie ty clini nir pract ice guide line. JCEM. 2010; 96(7) :1911 -30. Not Available [facility] ([facility]) [address] [facility], [place], [address], 03/14/2024 06:08:22 03/13/20 24 03/14/2024 TSH RFX ON ABNOR MAL TO FREE T4 TSH 1.390 uIU/m L 0.450- 4.500 normal Not Available [facility] ([facility]) [address], [place], [address], 03/14/2024 06:08:23 02/27/2002/14/2023 XR, lumbo sacra l spine No observ ation record ed. [facility] [address], [place], [address], 05/15/2023 14:26:23 Result Notes None recorded. Problems Name Problem SNOMED Code Status Onset Date Resolution Date Notes Provider Name and Address Organization Details Recorded Time Alcohol abuse 12590414 Completed 04/14/2018 Manjinder Valladares MD [address] [facility] [address], [place], [address], [facility] 8 08:39:44 Patient status finding [id number] Completed 12/23/2017 Manjinder Valladares MD [address] [facility] [address], [place], [address], [facility] 8 08:14:58 Depressi ve disorder 55263122 Completed 07/12/2014 Sabrina Ramirez PA-C [address] [facility] [address], [place], [address], [facility] 6 14:49:21 Diarrhea of presumed infectio us origin 54328604 Completed 200911/03/2013 RESOLVED DATE: 04/25/19 10; IMPRESSI ON: HISTORY OF VIRAL GASTRO OR FOOD POISONIN G. NOW RESOLVED .; RECORDED 04/25/19 10 4:27PM BY JASON HUFFMAN MD, OFFICE VISIT Sabrina Ramirez PA-C [address], [place], [address], [facility] 6 14:49:21 Hyperlip idemia 64535701 Completed 03/16/2024 12.18 - ascvd risk 2.8% Gaye Ramirez PA-C [address] [facility] [address], [place], [address], [facility] 4 13:18:24 Malaise and fatigue 389266943 Completed 201111/03/2013 RECORDED 02/04/20 12 9:00AM BY JERMAIN VARGAS MA, ANNOTATI ON/ADDEN DUM Sabrinajosé Ramirez PA-C [address], [place], [address], [facility] 6 14:49:22 Disorder of male genital organ 27909446 Completed 201111/03/2013 IMPRESSI ON: SEVERE PAIN AND INABILIT Y TO SIT X 1 WEEK, WITH ASSOC RECTAL BLEED S/P BLUNT INJURY. PE REVEALS +HEMEOCC ULT. DISCUSSE D CASE WITH DR. BOBBI LAWSON AND HAVE ADVISED D/C MOTRIN AND MAY USE PERCOCET PRN FOR PAIN. PER CALL TO DR. SHAUN Spear'S OFFICE, IT WAS RECC THAT PT BE SEEN FOR CONSULT WITH COLORECT AL SURGEON. OUR OFFICE WILL ARRANGE AND WE MAY ALSO CONSIDER F/U DEPENDEN T UPON EVAL WITH SURGEON. ; RECORDED 02/04/20 12 9:00AM BY JERMAIN VARGAS MA, ANNOTATI ON/ADDEN DUM Sabrina Ramirez PA-C [address] [facility] [address], [place], [address], [facility] 6 14:49:22 Administ ration of bacteria l and viral vaccine Completed 200711/03/2013 RECORDED 03/16/20 08 2:04PM BY AMANDA YANES, OFFICE VISIT Sabrina Ramirez PA-C [address], [place], [address], [facility] 6 14:49:22 Eruption 823123643 Active Sabrina Ramirez PA-C [address], [place], [address], [facility] 6 14:49:22 Sprain of ankle 67313944 Completed 201111/03/2013 RECORDED 02/04/20 12 9:00AM BY JERMAIN VARGAS MA, ANNOTATI ON/ADDEN DUM [facility] [address] [facility] [address], [place], [address], [facility] 6 14:49:22 Increase d frequenc y of urinatio n 567885472 Completed 201111/03/2013 RECORDED 02/04/20 12 9:00AM BY JERMAIN VARGAS MA, MARCELINA ON/ADDEN DUM [facility] [address] [facility] [address], [place], [address], [facility] 6 14:49:22 Diarrhea of presumed infectio us origin 47360677 Completed 200911/30/2013 RESOLVED DATE: 04/25/19 10; IMPRESSI ON: HISTORY OF VIRAL GASTRO OR FOOD POISONIN G. NOW RESOLVED .; RECORDED 04/25/19 10 4:27PM BY JASON HUFFMAN MD, OFFICE VISIT [facility] [address] [facility] [address], [place], [address], [facility] 6 14:49:21 Malaise and fatigue 746739849 Completed 201111/30/2013 RECORDED 02/04/20 12 9:00AM BY JERMAIN VARGAS MA, MARCELINA ON/ADDEN DUM [facility] [address] [facility] [address], [place], [address], [facility] 6 14:49:22 Disorder of male genital organ 65900525 Completed 201111/30/2013 IMPRESSI ON: SEVERE PAIN AND INABILIT Y TO SIT X 1 WEEK, WITH ASSOC RECTAL BLEED S/P BLUNT INJURY. PE REVEALS +HEMEOCC ULT. DISCUSSE D CASE WITH DR. BOBBI LAWSON AND HAVE ADVISED D/C MOTRIN AND MAY USE PERCOCET PRN FOR PAIN. PER CALL TO DR. SHAUN Spear'S OFFICE, IT WAS RECC THAT PT BE SEEN FOR CONSULT WITH COLORECT AL SURGEON. OUR OFFICE WILL ARRANGE AND WE MAY ALSO CONSIDER F/U DEPENDEN T UPON EVAL WITH SURGEON. ; RECORDED 02/04/20 12 9:00AM BY JERMAIN VARGAS MA, ANNOTATI ON/ADDEN DUM Sabrina Ramirez PA-C [address], [place], [address], [facility] 6 14:49:22 Administ ration of bacteria l and viral vaccine Completed 200711/30/2013 RECORDED 03/16/20 08 2:04PM BY AMANDA YANES, OFFICE VISIT Sabrina Ramirez PA-C [address], [place], [address], [facility] 6 14:49:22 Sprain of ankle 88021416 Completed 201111/30/2013 RECORDED 02/04/20 12 9:00AM BY JERMAIN VARGAS MA, ANNOTSTEPHIE ON/ADDEN DUM Sabrina Ramirez PA-C [address], [place], [address], [facility] 6 14:49:22 Increase d frequenc y of urinatio n 506131035 Completed 201111/30/2013 RECORDED 02/04/20 12 9:00AM BY JERMAIN VARGAS MA, ANNOTSTEPHIE ON/ADDEN DUM Sabrina Ramirez PA-C [address], [place], [address], [facility] 6 14:49:22 Impotenc e Active Sabrina Ramirez PA-C [address], [place], [address], [facility] 6 14:49:21 Body mass index 40+ - severely obese 259872806 Completed 04/28/2020 Rajni Butt [facility] null, [facility] 09:52:38 Hypogona dism 66633535 Active Sabrina Ramirez PA-C [address], [place], [address], [facility] 6 14:49:21 Upper respirat ory infectio n 24780863 Completed 04/07/2018 Manjinder Valladares MD [address] [facility] [address], [place], [address], [facility] 8 09:56:07 Cough 59029856 Completed 04/07/2018 Manjinder Valladares MD [address] [address], [place], [address], [facility] 8 09:56:04 Excessiv e cerumen in ear canal 155975827 Completed 12/23/2017 Manjinder Valladares MD [address] [facility] [address], [place], [address], [facility] 8 08:15:05 Elevated blood-pr essure reading without diagnosi s of hyperten mark 949441967 Completed 02/23/2019 Jason Huffman MD [address] [facility] [address], [place], [address], [facility] 9 10:07:56 Lumbar sprain 566451105 Active Tong dahl MD [address] [address], [place], [address], [facility] 6 22:10:22 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 435611556 Active 2017 Manjinder Valladares MD [address], [place], [address], [facility] 8 08:40:38 Major depressi ve disorder 945714922 Completed 202011/23/2021 Manjinder Valladares MD [address] [facility] [address], [place], [address], [facility] 2 07:59:24 Bipolar II disorder 74965129 Active 2020 Gaye Ramirez PA-C [address], [place], [address], [facility] 1 10:26:18 Chronic neck pain 54400501335 07 Active 2020 Gaye Ramirez PA-C [address], [place], [address], [facility] 1 10:27:16 Psoriasi s 6458292 Active 2020 Gaye Ramirez PA-C [address], [place], [address], [facility] 1 10:31:49 Snoring 37220952 Completed 202003/16/2024 Gaye Ramirez PA-C [address], [place], [address], [facility] 4 13:16:37 Impaired fasting glycemia 227606958 Active 2020 Gaye Ramirez PA-C [address], [place], [address], [facility] 1 10:32:07 Major depressi on with psychoti c features 527634651 Active 2021 Manjinder Valladares MD [address], [place], [address], [facility] 2 07:58:41 Severe recurren t major depressi on with psychoti c features 80242447 Active 2021 Manjinder Valladares MD [address], [place], [address], [facility] 2 07:59:06 Morbid obesity 725283172 Active [facility] 10:58:33 Obstruct glenroy sleep apnea syndrome 39826527 Active 2021 does not use the CPAP machine Mulu mckay MA null, [facility] 3 11:22:36 Macrocyt osis - no anemia 189067494 Active 2021 Gaye Ramirez PA-C [address], [place], [address], [facility] 2 13:01:09 Increase d liver function 06805783 Active 2021 Manjinder Valladares MD [address], [place], [address], [facility] 2 09:36:37 Prediabe samina 384232227 Active 2023 Gaye Ramirez PA-C [address], [place], [address], [facility] 4 13:20:04 Essentia l hyperten mark 14033378 Active 2023 Gaye Ramirez PA-C [address], [place], [address], [facility] 4 13:54:48 Problem Notes None recorded. Procedures Surgical History Date Name Laterality Status Provider Name and Address Organization Details Recorded Time 11/20/18 98 Appendectomy completed [facility] 12/19/2017 14:13:32 extraction of wisdom tooth completed Mulu fofana, AMANDA [facility] 09/20/2022 11:16:51 Imaging Results Imaging Date Name Status LastModified by Organiz ation Details LastModified Time 02/14/2023 XR, lumbosacral spine completed [facility] [place], [address], 05/15/2023 14:26:23 Procedure Notes None recorded. Medical Equipment None Reported. Allergies Allergen ID Allergen Name Allergen Category Reaction Reaction Severity Criticality Documentation Date Start Date Code Code System Note Provider Name and Address Organization Details Recorded Time [facility] Not available Not available 11/03/20132011 64844 8 RxNorm Rajni Butt MA [facility] [place] - [facility] 09:27:10 Medications Name Sig Start Date Stop Date Status Note LastModified by Organization Details LastModified Time duloxetin e hcl 30 mg cpep 12/12 completed Not Available Not Available Not Available ziprasido ne hcl 80 mg caps 12/19 completed Not Available Not Available Not Available seroquel xr 300 mg tb24 12/12 completed Not Available Not Available Not Available viagra 100 mg tabs 12/12 completed Not Available Not Available Not Available losartan 50 mg tablet TAKE 1 TABLET BY MOUTH EVERY DAY active Not Available Not Available No t Available ziprasido ne 80 mg capsule TAKE 2 CAPSULES BY MOUTH DAILY AT SUPPER 09/20 completed Not Available Not Available Not Available amoxicill in 500 mg capsule TAKE 1 CAPSULE BY MOUTH EVERY 8 HOURS FOR 7 DAYS UNTIL FINISHED 03/16 completed Not Available Not Available Not Available prednison e 10 mg tablet 11/23 completed Not Available Not Available Not Available citalopra m 40 mg tablet QD 02/03 completed RECORDED 02/04/20 12 9:05AM BY JERMAIN VARGAS MA, OFFICE VISIT; Not Available Not Available Not Available divalproe x 250 mg tablet,de layed release 02/06 completed Not Available Not Available Not Available ibuprofen 800 mg tablet TAKE 1 TABLET BY MOUTH EVERY 8 HOURS NEEDED FOR PAIN active Not Available Not Available No t Available fluconazo le 150 mg tablet TAKE 1 TABLET BY MOUTH EVERY 3 DAYS FOR 2 DOSES 05/15 completed Not Available Not Available Not Available hydrocodo ne 5 mg-acetam inophen 325 mg tablet 12/19 completed Not Available Not Available Not Available senna 8.6 mg tablet Take 2 tablets every day by oral route. 02/23 completed Not Available Not Available Not Available fluocinol one 0.01 % topical cream 12/19 completed Not Available Not Available Not Available meloxicam 15 mg tablet TAKE 1 TABLET BY MOUTH DAILY 09/20 completed Not Available Not Available Not Available prednison e 20 mg tablet TAKE 1 TABLET BY MOUTH TWICE DAILY FOR 3 DAYS 05/15 completed Not Available Not Available Not Available quetiapin e 200 mg tablet Take 1 tablet every day by oral route at bedtime for 90 days. 09/20 completed Not Available Not Available Not Available Debrox 6.5 % ear drops Instill 4 drops by otic route. 12/12 completed Not Available Not Available Not Available divalproe x 500 mg tablet,de layed release TAKE 3 TABLETS BY MOUTH DAILY AT BEDTIME 03/16 completed Not Available Not Available Not Available sildenafi l 100 mg tablet Take 1 tablet as needed by oral route for 4 days. 02/06 completed Not Available Not Available Not Available triamcino lone acetonide 0.1 % topical cream active Not Available Not Available Not Available oxycodone -acetamin ophen 5 mg-325 mg tablet EVERY FOUR TO SIX HOURS, NEEDED FOR PAIN 02/05 completed RECORDED 02/04/20 12 8:48AM BY NGUYEN NEAL, MEDICATI ON AUTO-SANDY CTIVATIO N; Not Available Not Available Not Available Guaiatuss in AC 10 mg-100 mg/5 mL oral liquid Take 10 mL every 4-6 hours by oral route as needed for 3 days. 12/12 completed Not Available Not Available Not Available benzonata te 100 mg capsule TAKE 1 CAPSULE BY MOUTH TWICE DAILY FOR 7 DAYS NEEDED FOR COUGH 05/15 completed Not Available Not Available Not Available triamcino lone acetonide 0.1 % topical ointment 04/28 completed Not Available Not Available Not Available calcipotr iene 0.005 % topical cream 04/28 completed Not Available Not Available Not Available testoster one cypionate 200 mg/mL intramusc ular oil ADMINIST ER 0.5 ML IN THE MUSCLE EVERY WEEK active Not Available Not Available No t Available polyethyl amanda glycol 3350 17 gram/dose oral powder Take 17 g every day by oral route. 04/28 completed Not Available Not Available Not Available albuterol sulfate HFA 90 mcg/actua tion aerosol inhaler INHALE 1 PUFF BY MOUTH EVERY 4 TO 6 HOURS NEEDED FOR SHORTNES S OF BREATH OR WHEEZING 11/23 completed Not Available Not Available Not Available ketoconaz ole 2 % topical cream APPLY TWICE DAILY TO RASH 11/23 completed Not Available Not Available Not Available betametha sone dipropion ate 0.05 % topical ointment 04/28 completed Not Available Not Available Not Available sodium fluoride 1.1 % dental gel 11/23 completed Not Available Not Available Not Available BD Luer-Geetha Syringe 3 mL 21 gauge x 1 USE WEEKLY WITH TESTOSTE LILA 11/23 completed Not Available Not Available Not Available amoxicill in 875 mg-potass ium clavulana te 125 mg tablet TAKE 1 TABLET BY MOUTH TWICE DAILY FOR 10 DAYS 05/15 completed Not Available Not Available Not Available BD Integra Syringe 3 mL 23 gauge x 1 TO BE USED WITH CANELO SHARP INJECTIO N WEEKLY active Not Available Not Available No t Available duloxetin e 20 mg capsule,d elayed release DAILY active Not Available Not Available Not Available duloxetin e 30 mg capsule,d elayed release Take 1 capsule every day by oral route at bedtime for 90 days. 09/20 completed Not Available Not Available Not Available sildenafi l (pulmonar y hypertens ion) 20 mg tablet Take 2 tablets every day by oral route for 30 days. 12/23 completed Not Available Not Available Not Available quetiapin e 400 mg tablet TAKE 1 TABLET BY MOUTH DAILY AT BEDTIME active Not Available Not Available No t Available quetiapin e ER 300 mg tablet,ex tended release 24 hr 12/19 completed Not Available Not Available Not Available Seroquel XR 400 mg tablet,ex tended release active Not Available Not Available Not Available Probiotic 1 capsule po daily 02/06 completed Not Available Not Available Not Available magnesium 400 mg (as magnesium oxide) capsule Take 1 capsule every day by oral route. 02/06 completed Not Available Not Available Not Available Paxlovid 300 mg (150 mg x 2)-100 mg tablets in a dose pack TK 2 NIRMATRE LVIR TS AND 1 RITONAVI R T TOGETHER PO TWICE DAILY 05/15 completed Not Available Not Available Not Available Vitals Date Recorded Body height Body mass index (BMI) Body weight Heart rate Oxygen saturation Oxygen saturation in Arterial blood by Pulse oximetry Body temperature Systolic blood pressure Diastolic blood pressure Provider Name and Address Organization Details Last Updated DateTime 3 176.53 cm 47.3 kg/m2 109497. 52 g 96 /min 97 % 97 % 96.7 [degF] 136 mm[Hg] 88 mm[Hg] Mulu mckay [facility] 3 11:19:23 Date Recorded Body height Body mass index (BMI) Body weight Heart rate Oxygen saturation Oxygen saturation in Arterial blood by Pulse oximetry Systolic blood pressure Diastolic blood pressure Provider Name and Address Organization Details Last Updated DateTime 3 176.53 cm 45 kg/m2 900462. 04 g 100 /min 98 % 98 % 134 mm[Hg] 99 mm[Hg] Teri Pepe MA [facility] 3 11:43:31 Date Recorded Body height Provider Name an d Address Organization Details Last Updated DateTime 03/26/2023 176.53 cm [facility] 03/26/2023 08:49:55 Date Recorded Body height Body mass index (BMI) Body weight Heart rate Oxygen saturation Oxygen saturation in Arterial blood by Pulse oximetry Body temperature Systolic blood pressure Diastolic blood pressure Systolic blood pressure Diastolic blood pressure Provider Name and Address Organization Details Last Updated DateTime 4 176.53 cm 44.1 kg/m2 283166. 49 g 97 /min 96 % 96 % 97.8 [degF] 148 mm[Hg] 91 mm[Hg] 134 mm[Hg] 90 mm[Hg] Mulu mckay MA [facility] 4 14:24:08 Date Recorded Systolic blood pressure Diastolic blood pressure Provider Name and Address Organization Details Last Updated DateTime 05/15/2023 134 mm[Hg] 86 mm[Hg] Gaye Ramirez PA-C [address] [address], [place], [address], [facility] 05/15/2023 14:59:36 Date Recorded Body height Provider Name an d Address Organization Details Last Updated DateTime 02/07/2024 176.53 cm Johanneterrence Hickey MA [facility] 02/07/2024 14:31:54 Date Recorded Body height Body mass index (BMI) Body weight Heart rate Oxygen saturation Oxygen saturation in Arterial blood by Pulse oximetry Body temperature Systolic blood pressure Diastolic blood pressure Provider Name and Address Organization Details Last Updated DateTime 4 176.53 cm 48.5 kg/m2 058556. 26 g 115 /min 97 % 97 % 97.7 [degF] 137 mm[Hg] 87 mm[Hg] Adam mcginnis [facility] 4 10:03:26 Date Recorded Body height Body mass index (BMI) Body weight Heart rate Oxygen saturation Oxygen saturation in Arterial blood by Pulse oximetry Systolic blood pressure Diastolic blood pressure Provider Name and Address Organization Details Last Updated DateTime 4 176.53 cm 45.6 kg/m2 100684. 41 g 110 /min 98 % 98 % 144 mm[Hg] 101 mm[Hg] Johanne Hickey [facility] 4 13:06:26 Date Recorded Heart rate Provider Name an d Address Organization Details Last Updated DateTime 03/16/2024 96 /min Gaye Traore-C [address] [address], [place], [address], [facility] 03/16/2024 13:53:36 Social History Question Answer Notes LastModified by Organizat ion Details LastModified Time Tobacco Smoking Status Never Smoker Shelli Rocha MA null, [facility] 07/13/2014 14:57:52 Do You Have An Advance Directive? No Information not available 09/20/2022 What Is Your Level Of Alcohol Consumption? Occasional Rare Information not available 09/20/2022 Is Blood Transfusion Acceptable In An Emergency? Yes Information not available 04/07/2018 What Is Your Level Of Caffeine Consumption? Moderate 3-5 Cups Of Coffee In The Morning Information not available 09/20/2022 How Much Tobacco Do You Chew? None Information not available 12/19/2017 Are You Currently Employed? Yes [email or web address] Information not available 07/13/2014 What Type Of Diet Are You Following? REGULAR [email or web address] Information not available 07/13/2014 Which Illicit Or Recreational Drugs Have You Used? None Information not available 12/19/2017 Do You Or Have You Ever Used E-cigarettes Or Vape? 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 0 Information not available 09/20/2022 Do You Take Precautions To Prevent Distracted Driving? Yes Information not available 04/07/2018 How Often Do You Need To Have Someone Help You When You Read Instructions, Pamphlets, Or Other Written Material From Your Doctor Or Pharmacy? Never Information not available 12/19/2017 Have You Served In The ? Yes [employer] Information not available 04/07/2018 *[facility] ONLY* Are You Presently Prescribed Opioid Medication By PCP Or Specialist? If YES -Provider Assess The Benefit For Other, Non-opioid Pain Therapies Instead, Even If The Patient Does Not Have OUD But Is Possibly At Risk. No Information not available 04/28/2020 What Was The Date Of Your Most Recent Tobacco Screening? 03/16/2024 [email or web address] Information not available 03/16/2024 How Many Children Do You Have? 1 Step-son Information not available 02/23/2019 What Is Your Current Pack Years? 0 N/a Information not available 09/20/2022 Are You Sexually Active? Yes (Marilyn) Information not available 09/20/2022 At What Age Did You Start Smoking Tobacco? 0 Information not available 12/19/2017 Are You Passively Exposed To Smoke? No Information not available 04/07/2018 Do You Or Have You Ever Used Smokeless Tobacco? Never Used Smokeless Tobacco Information not available 02/23/2019 How Much Tobacco Do You Smoke? No Information not available 12/19/2017 Do You Use Any Illicit Or Recreational Drugs? No Information not available 09/20/2022 Do You Use Sunscreen Routinely? Yes [email or web address] Information not available 07/13/2014 How Many Years Have You Smoked Tobacco? 0 Information not available 12/19/2017 Do You Or Have You Ever Used Any Other Forms Of Tobacco Or Nicotine? No Information not available 09/20/2022 Sex: Unknown Functional Status Question Answer Note LastModified by Organizat ion Details LastModified Time Are you able to walk? YESWOREST Information not available 09/20/2022 Are you able to care for yourself? Yes [email or web address] Information not available 07/13/2014 What is your exercise level? Heavy biking and active at work Information not available 09/20/2022 Mental Status None recorded. Family History Relationship Description Onset Age of this Age Resolved Age Notes LastModified by Organization Details LastModified Time Mother Hypothyroidi sm [email or web address] Not available 2014 14:50:11 Notes:No FH of colon or livier st cancer Medical History No medical history recorded. Immunizations Vaccine Type Date Status Provider Name and Address Organization Details Recorded Time COVID-19, mRNA, LNP-S, PF, 100 mcg/0.5mL dose or 50 mcg/0.25mL dose 06/07/2020 completed [facility] 12/20/2021 10:31:53 COVID-19, mRNA, LNP-S, PF, 100 mcg/0.5mL dose or 50 mcg/0.25mL dose 05/10/2020 completed [facility] 12/20/2021 10:31:53 Tdap 12/19/2017 completed AMANDA [facility] 12/20/2021 10:31:53 Influenza, split virus, quadrivalent, PF 06/03/2019 cancelled Gaye Ramirez PA-C [address] [address], [place], [address], [facility] 06/03/2019 15:22:32 Tdap 03/16/2008 completed Not Available [facility] 13:58:41 Past Encounters Encounter ID Performer Location Encounter Start Date Encounter Closed Date Diagnosis/Indication Diagnosis SNOMED-CT Code Diagnosis ICD10 Code [id number] autoEComm erce [id number] [facility] [place] [address] 06/25/2006 00:00:00 [id number] autoEComm erce [id number] [facility] [place] [address] 07/04/2006 00:00:00 [id number] autoEComm erce [id number] [facility] [place] [address] 03/16/2008 00:00:00 [id number] autoEComm erce [id number] [facility] [place] [address] 04/25/2009 00:00:00 [id number] autoEComm erce [id number] [facility] [place] [address] 01/26/2010 00:00:00 [id number] autoEComm erce [id number] [facility] [place] [address] 02/04/2012 00:00:00 [id number] Kimberlyn Tam Main Office [address] [place] [address] 07/13/2014 14:42:41 07/13/2014 15:39:27 Impotence 049443139 Body mass index 40+ - severely obese 940067870 [id number] Manjinder Valladares MD Main Office [address] [address] [place] [address] 03/07/2015 14:43:01 03/07/2015 15:38:45 Upper respiratory infection 48315480 J06.9 Cough 94161971 R05 Excessive cerumen in ear canal 385132868 H61.21 Elevated blood-pressure reading without diagnosis of hypertension 744011099 R03.0 [id number] Tong Baltazar MD Main Office [address] [place] [address] 12/13/2015 14:24:46 12/13/2015 14:56:05 Lumbar sprain 746952931 S33.9XXA [id number] Manjinder Valladares MD Main Office [address] [address] [place] [address] 12/19/2017 13:54:14 12/19/2017 15:27:30 Adult health examination 370939276 Z00.00 Administra tion of diphtheria, pertussis, and tetanus vaccine 152537166 Z23 Body mass index 40+ - severely obese 521379442 E66.01 Z68.41 Impaired f asting glycemia 199511584 R73.01 Hypogonadism 59914124 E2 9.1 Primary er ectile dysfunction 177935340 N52.9 Snoring 96756129 R06.83 Psoriasis 5972581 L40.9 Major depr essive disorder 888431823 F32.9 [id number] Renetta Bustillos Main Office [address] [address] [place] [address] 04/07/2018 08:59:04 04/07/2018 10:08:45 Abdominal pain 25511396 R10.9 Psoriasis 6163106 L40.9 Constipation 76152273 K5 9.00 [id number] Manjinder Valladares MD Main Office [address] [address] [place] [address] 04/14/2018 08:08:54 04/14/2018 08:50:53 Mixed hypercholesterolemia and hypertriglyceridemia 671698262 E78.2 Increased liver function 86540373 R94.5 Left lower quadrant pain 094738469 R10.32 [id number] Christina Peralta Main Office [address] [address] [place] [address] 04/23/2018 09:52:53 04/23/2018 10:51:34 Inguinal pain 485222280 R10.2 Strain of flexor muscle of left hip 8216882693 9416247 S76.012A [id number] Jason Huffman MD Main Office [address] [address] [place] [address] 02/23/2019 09:06:39 02/23/2019 10:15:14 Adult health examination 575011494 Z00.00 Impotence 109847233 N52. 9 Hyperlipidemia 18171276 E78.5 Fatigue 88143234 R53.83 Body mass index 40+ - severely obese 703441131 E66.01 Z68.41 Hypogonadism 63836689 E2 9.1 Essential hypertension 86082684 I10 Psoriasis 7200617 L40.9 Moderate m ajor depression, single episode 63642777 F32.1 [id number] Christina Peralta Main Office [address] [facility] [address] [place] [address] 06/03/2019 14:20:17 06/03/2019 15:35:47 Influenza vaccination declined 211407016 Z28.21 Mixed hypercholesterolemia and hypertriglyceridemia 634432597 E78.2 Bipolar II disorder 8322 5003 F31.81 Hypogonadism 53850312 E2 9.1 Impaired f asting glycemia 892534860 R73.01 Snoring 32234826 R06.83 [id number] Gaye Ramirez PA-C Main Office [address] [address] [place] [address] 04/28/2020 09:21:22 04/28/2020 10:58:43 Adult health examination 612932402 Z00.00 Mixed hypercholesterolemia and hypertriglyceridemia 962933645 E78.2 Chronic neck pain 647362 5988 107 M54.2 Snoring 12448790 R06.83 Hypogonadism 30983028 E2 9.1 Body mass index 40+ - severely obese 146611450 E66.01 Z68.42 Bipolar II disorder 8322 5003 F31.81 Fatigue 91932602 R53.83 Impaired f asting glycemia 375141452 R73.01 Psoriasis 9136879 L40.9 [id number] Christina Fabian Main Office [address] [address] [place] [address] 11/23/2021 09:14:27 11/23/2021 10:22:47 Body mass index 40+ - severely obese 732782639 Z68.42 Hepatitis C screening 41 9413393 Z11.59 Obstructiv e sleep apnea syndrome 75400148 G47.33 Bipolar II disorder 8322 5003 F31.81 Morbid obesity 210558220 E66.01 [id number] Gaye Ramirez PA-C Main Office [address] [address] [place] [address] 12/20/2021 10:25:10 12/20/2021 11:33:47 Bipolar II disorder 88363182 F31.81 Obstructiv e sleep apnea syndrome 06955846 G47.33 Macrocytos is - no anemia 504045696 D75.89 Psoriasis 6310165 L40.9 [id number] Gaye Ramirez PA-C Main Office [address] [address] [place] [address] 09/20/2022 10:52:06 09/20/2022 11:56:12 Adult health examination 028442744 Z00.00 Mixed hypercholesterolemia and hypertriglyceridemia 306741061 E78.2 Hypogonadism 40371329 E2 9.1 Body mass index 40+ - severely obese 794244738 E66.01 Z68.42 Bipolar II disorder 8322 5003 F31.81 Impaired f asting glycemia 511223058 R73.01 Psoriasis 8994225 L40.9 Obstructiv e sleep apnea syndrome 57653068 G47.33 Multiple joint pain 3567 8005 M25.50 Screening for malignant neoplasm of colon 006542131 Z12.11 [id number] Manjinder Valladares MD Main Office [address] [address] [place] [address] 12/20/2022 11:23:57 12/20/2022 12:30:42 Hypogonadism 10348720 E29.1 Psoriasis 4316862 L40.9 Fracture o f phalanx of foot 89622898 S92.911A [id number] Gaye Ramirez PA-C Main Office [address] [address] [place] [address] 05/15/2023 14:01:48 05/15/2023 15:05:55 Multiple joint pain 17684701 M25.50 Psoriasis 7736244 L40.9 Bipolar II disorder 8322 5003 F31.81 Hypogonadism 79748637 E2 9.1 Mixed hyperlipidemia 267 339240 E78.2 Impaired f asting glycemia 421912355 R73.01 Vitamin D deficiency 347 65363 E55.9 [id number] Gaye Ramirez PA-C Main Office [address] [address] [place] [address] 02/08/2024 09:45:32 02/08/2024 10:49:00 Psoriasis 6020270 L40.9 Hyperlipidemia 55113453 E78.5 Vitamin D deficiency 347 44547 E55.9 Impaired f asting glycemia 952405340 R73.01 Fatigue 65322006 R53.83 Nocturia 797849191 R35.1 [id number] Gaye Ramirez PA-C Main Office [address] [address] 03/16/2024 12:59:09 03/16/2024 15:52:40 Adult health examination 406038981 Z00.00 Influenza vaccination declined 063035794 Z28.21 Bipolar II disorder 8322 5003 F31.81 Chronic neck pain 886051 0772 107 M54.2 Hypogonadism 66161707 E2 9.1 Obstructiv e sleep apnea syndrome 58884299 G47.33 Mixed hypercholesterolemia and hypertriglyceridemia 019561033 E78.2 Prediabetes 267899096 R7 3.03 Psoriasis 0574443 L40.9 Body mass index 40+ - severely obese 039773976 E66.01 Z68.42 Screening for malignant neoplasm of colon 472405915 Z12.11 Z12.12 Essential hypertension 24013463 I10 Health Concerns Section Related Observation LastModified by Organization Detai ls LastModified Time None Recorded Concern Status LastModified by Organization Details LastModified Time None Recorded Advance Directives Directive N: Payers Encounter Date Sequence Insurance Name Policy Number Policy Culp Covered Member ID Culp Member ID Guarantor Name 09/20/2022 1 [facility] [id number] 1 Dav W Roc [id number] Dav W Roc 12/20/2022 1 [facility] [id number] 1 Dav W Roc [id number] Dav W Roc 05/15/2023 1 [facility] [id number] 1 Dav W Roc [id number] Dav W Roc 02/08/2024 1 [facility] [id number] 1 Dva W Roc [id number] Dav W Roc 03/16/2024 1 [facility] [id number] 1 Dav W Roc [id number] Dav W Roc Notes Date Note Type Note Provider Name and Address Organization Details Recorded Time 09/20/2022 text/html here for annual pe. Gaye Ramirez PA-C [address], [address], [facility] 09/20/2022 13:24:52 12/20/2022 text/html Emergency Depart ment Follow-Up RecordReported bypatient.Discharge Information[facility]; emergency department discharge date: (Please enter in format 'MM/DD/YYYY') (12/17/2022)Musculosk eletal PainReported bypatient.Location:ca ght foot; fifth toe Quality:aching;dullNo samina:Accidentally kicked a wall on 12.16, in ED on 12/17. Per ER note has a minimally displaced 5th digit fracture of right foot. Works for the [employer]. ED provided OOWN thruu11/28. Has not contacted ortho to arrange f/u yet. Recent labs showed peristent low T for which he used to see endocrine but was lost to follow u. He would like to reconnect. Pt also has psoriasis which he would like to follow up with derm for. [place] for his taste. Manjinder Valladares MD [address] [address], [place], [address], [facility] 12/20/2022 12:52:42 05/15/2023 text/html Anxiety/Depressi onRep orted bypatient.Quality:moo d worse Severity:denies suicidal ideations Context:major life stressors Associated Symptoms:denies homicidal ideations here for f/u visitreviewed recent ATC note c ptfol by elizabeth Ramirez PA-C [address] [address], [place], [address], [facility] 05/15/2023 15:00:58 02/08/2024 text/html psoriasis flare up- wants OOWNwas scheduled with AW for but PT could not do video so AW said to book saturday is followed by derm, and also by rheum - reviewed last consult notes pt requests oown for time missed last week -- severed itching/discomfort - 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 Gaye Ramirez PA-C [address] [address], [place], [address], [facility] 03/16/2024 13:55:41
--- OUTSIDE RECORDS SUMMARY | 2024-03-31 13:43 | XMS_ITS | Continuity of Care Document ---
Author Organization [facility], Main Office Address [address] [facility] [address] [place] [address] Care Team Providers Care Binder Operator Name Role Phone [facility] Psychiatri st BURAK RAMIREZ Primary Care Provider [phone] VIN JUNIOR It Help Desk Analyst JOHANNE MOLINA Machine Adjuster Assessment No assessment recorded. Plan of Treatment Reminders Order Date Submit Date Provider Last Modified By Organization Details Last Modified Time Details Appointments None recorded. Lab HbA1c (hemoglobin A1c), blood 2023 025 pmadden [facility], [address] [place], [address], 13:51:34 BMP, serum or plasma 2023 025 pmadden [facility], [address] [place], [address], 4 13:51:34 noninvasive colorectal cancer DNA + occult blood screening, QL, stool 2023 024 [facility] (Cologuard Orders Only), [address], [address], [place], [address], 13:51:50 Referral nutritionis t/dietitian referral 2023 024 Not available 15:52:41 Procedures None recorded. Surgeries None recorded. Imaging None recorded. Medication Orders losartan 50 mg tablet 2023 024 [id number], [address] [place], [place], [id number], 13:51:45 Patient Targets Encounter Date Encounter Id Patient Goals Patient Target Last Modified By Organization Details Last Modified Time 03/16/2024 [id number] detention goal of Blood Pressure Not available Not available Not available rat exterminator goal of Exercise level Not available Not available Not available rat exterminator goal of Tobacco Smoking Status Not available Not available Not available detention goal of Excess Body Weight Loss % [...] Modified By Organization Details Last Modified Time 03/16/2024 [id number] starting a weigh t loss plan: care instructions pmadden Not available [...] Instructions pmadden Not available 03/16/2024 13:51:34 Medications (OTC , herbal therapies, supplements) reviewed and reconciled with patient and or caregiver, including potential side effects, drug interactions, instructions, and the consequences of not taking medication. Reviewed potential barriers to medication adherence, such as side effects from medication or cost of medication. pmadden Not available 03/16/2024 13:55:16 Reason for Referral Bank Officer/dietitian Refer ral for Body mass index 40+ - severely obese Referring Physician: Burak Ramirez, Internal Medicine, Encounter Date: 03/16/2024 Problems Name Problem SNOMED Code Status Onset Date Resolution Date Notes Provider Name and Address Organization Details Recorded Time Alcohol abuse 08218261 Completed 04/14/2018 Manjinder Valladares MD [address] [facility] [address], [place], [address], [facility] 8 08:39:44 Patient status finding 222644641 Completed 12/23/2017 Manjinder Valladares MD [address] [facility] [address], [place], [address], [facility] [place] 8 08:14:58 Depressi ve disorder 65914756 Completed 07/12/2014 Sabrina Ramirez PA-C [address] [facility] [address], [place], [address], [facility] [place] 6 14:49:21 Diarrhea of presumed infectio us origin 94131740 Completed 200911/03/2013 RESOLVED DATE: 04/25/19 10; IMPRESSI ON: HISTORY OF VIRAL GASTRO OR FOOD POISONIN G. NOW RESOLVED .; RECORDED 04/25/19 10 4:27PM BY JASON HUFFMAN MD, OFFICE VISIT Sabrina Ramirez PA-C [address] [facility] [address], [place], [address], [facility] 6 14:49:21 Hyperlip idemia 59880105 Completed 03/16/2024 12.18 - ascvd risk 2.8% Burak Slava BUTTS [address] [facility] [address], [place], [address], [facility] 4 13:18:24 Malaise and fatigue 487101316 Completed 201111/03/2013 RECORDED 02/04/20 12 9:00AM BY JERMAIN VARGAS MA, MARCELINA ON/ADDEN DUM Sabrina Ramirez PA-C [address] [facility] [address], [place], [address], [facility] 6 14:49:22 Disorder of male genital organ 35763656 Completed 201111/03/2013 IMPRESSI ON: SEVERE PAIN AND INABILIT Y TO SIT X 1 WEEK, WITH ASSOC RECTAL BLEED S/P BLUNT INJURY. PE REVEALS +HEMEOCC ULT. DISCUSSE D CASE WITH DR. BOBBI LAWSON AND HAVE ADVISED D/C MOTRIN AND MAY USE PERCOCET PRN FOR PAIN. PER CALL TO DR. SHAUN Nguyen'S OFFICE, IT WAS RECC THAT PT BE SEEN FOR CONSULT WITH COLORECT AL SURGEON. OUR OFFICE WILL ARRANGE AND WE MAY ALSO CONSIDER F/U DEPENDEN T UPON EVAL WITH SURGEON. ; RECORDED 02/04/20 12 9:00AM BY JERMAIN VARGAS MA, MARCELINA ON/ADDEN DUM Sabrina Ramirez PA-C [address] [facility] [address], [place], [address], [facility] 6 14:49:22 Administ ration of bacteria l and viral vaccine Completed 200711/03/2013 RECORDED 03/16/20 08 2:04PM BY AMANDA YANES, OFFICE VISIT Sabrina Ramirez PA-C [address] [facility] [address], [place], [address], [facility] 6 14:49:22 Eruption 857192338 [facility] [address] [place] [address], [place], [address], [facility] 6 14:49:22 Sprain of ankle 91052565 Completed 201111/03/2013 RECORDED 02/04/20 12 9:00AM BY JERMAIN VARGAS MA, MARCELINA ON/ADDEN DUM [facility] [address] [facility] [address], [place], [address], [facility] 6 14:49:22 Increase d frequenc y of urinatio n 143773800 Completed 201111/03/2013 RECORDED 02/04/20 12 9:00AM BY JERMAIN VARGAS MA, MARCELINA ON/ADDEN [place] [address] [facility] [address], [place], [address], [facility] 6 14:49:22 Diarrhea of presumed infectio us origin 23205824 Completed 200911/30/2013 RESOLVED DATE: 04/25/19 10; IMPRESSI ON: HISTORY OF VIRAL GASTRO OR FOOD POISONIN G. NOW RESOLVED .; RECORDED 04/25/19 10 4:27PM BY JASON HUFFMAN MD, OFFICE VISIT [place] [address], [place], [address], [facility] 6 14:49:21 Malaise and fatigue 609013122 Completed 201111/30/2013 RECORDED 02/04/20 12 9:00AM BY JERMAIN VARGAS MA, MARCELINA ON/ADDEN DUM [facility] [address] [facility] [address], [place], [address], [facility] 6 14:49:22 Disorder of male genital organ 80528403 Completed 201111/30/2013 IMPRESSI ON: SEVERE PAIN AND INABILIT Y TO SIT X 1 WEEK, WITH ASSOC RECTAL BLEED S/P BLUNT INJURY. PE REVEALS +HEMEOCC ULT. DISCUSSE D CASE WITH DR. BOBBI LAWSON AND HAVE ADVISED D/C MOTRIN AND MAY USE PERCOCET PRN FOR PAIN. PER CALL TO DR. SHAUN Nguyen'S OFFICE, IT WAS RECC THAT PT BE SEEN FOR CONSULT WITH COLORECT AL SURGEON. OUR OFFICE WILL ARRANGE AND WE MAY ALSO CONSIDER F/U DEPENDEN T UPON EVAL WITH SURGEON. ; RECORDED 02/04/20 12 9:00AM BY JERMAIN VARGAS MA, MARCELINA ON/ADDEN DUM Sabrina Ramirez PA-C [address], [place], [address], [facility] 6 14:49:22 Administ ration of bacteria l and viral vaccine Completed 200711/30/2013 RECORDED 03/16/20 08 2:04PM BY AMANDA YANES, OFFICE VISIT Sabrina Agnitus-C [address], [place], [address], [facility] 6 14:49:22 Sprain of ankle 26606213 Completed 201111/30/2013 RECORDED 02/04/20 12 9:00AM BY JERMAIN VARGAS MA, ANNOTATI ON/ADDEN DUM Sabrina Agnitus-C [address] [facility] [address], [place], [address], [facility] 6 14:49:22 Increase d frequenc y of urinatio n 812964138 Completed 201111/30/2013 RECORDED 02/04/20 12 9:00AM BY JERMAIN VARGAS MA, ANNOTATI ON/ADDEN DUM Sabrina Ramirez PA-C [address], [place], [address], [facility] 6 14:49:22 Impotenc e Active Sabrina BeWePlann-C [address] [facility] [address], [place], [address], [facility] 6 14:49:21 Body mass index 40+ - severely obese 277616137 Completed 04/28/2020 Rajni Butt MA null, [facility] 1 09:52:38 Hypogona dism 27959001 Active Sabrina Ramirez PA-C [address] [facility] [address], [place], [address], [facility] 6 14:49:21 Upper respirat ory infectio n 44809538 Completed 04/07/2018 Manjinder Valladares MD [address] [address], [place], [address], [facility] 8 09:56:07 Cough 45136796 Completed 04/07/2018 Manjinder Valladares MD [address] [address], [place], [address], [facility] 8 09:56:04 Excessiv e cerumen in ear canal 185074429 Completed 12/23/2017 Manjinder Valladares MD [address] [address], [place], [address], [facility] 8 08:15:05 Elevated blood-pr essure reading without diagnosi s of hyperten mark 503962614 Completed 02/23/2019 Jason Huffman MD [address] [address], [place], [address], [facility] 9 10:07:56 Lumbar sprain 593834520 Active Tong dahl MD [address] [address], [place], [address], [facility] 6 22:10:22 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 155192452 Active 2017 Manjinder Valladares MD [address] [address], [place], [address], [facility] 8 08:40:38 Major depressi ve disorder 757642905 Completed 202011/23/2021 Manjinder Valladares MD [address] [facility] [address], [place], [address], [facility] 2 07:59:24 Bipolar II disorder 86906525 Active 2020 Burak Ramirez PA-C [address] [facility] [address], [facility] [place], [address], [facility] 1 10:26:18 Chronic neck pain 83157543998 07 Active 2020 Burak Ramirez PA-C [address] [facility] [address], [facility] [place], [address], [facility] 1 10:27:16 Psoriasi s 6395293 Active 2020 Burak Ramirez PA-C [address] [facility] [address], [facility] [place], [address], [facility] 1 10:31:49 Snoring 52246064 Completed 202003/16/2024 Burak Ramirez PA-C [address] [facility] [address], [place], [address], [facility] 4 13:16:37 Impaired fasting glycemia 876559692 Active 2020 Burak Ramirez PA-C [address] [facility] [address], [facility] [place], [address], [facility] 1 10:32:07 Major depressi on with psychoti c features 683963253 Active 2021 Manjinder Valladares MD [address] [facility] [address], [facility] [place], [address], [facility] 2 07:58:41 Severe recurren t major depressi on with psychoti c features 77083712 Active 2021 Manjinder Valladares MD [address], [place], [address], [facility] 2 07:59:06 Morbid obesity 172575732 Active 2021 [facility] 10:58:33 Obstruct everett sleep apnea syndrome 36851635 Active 2021 does not use the CPAP machine AMANDA Pritchett, [facility] 3 11:22:36 Macrocyt osis - no anemia 054641908 Active 2021 Burak Ramirez PA-C [address], [place], [address], [facility] 2 13:01:09 Increase d liver function 66389021 Active 2021 Manjinder Valladares MD [address], [place], [address], [facility] 2 09:36:37 Prediabe samina 036460300 Active 2023 Burak Ramirez PA-C [address], [place], [address], [facility] 4 13:20:04 Essentia l hyperten mark 21217678 Active 2023 Burak Ramirez PA-C [address] [facility] [address], [facility] [place], [address], [facility] 4 13:54:48 Problem Notes None recorded. Procedures Surgical History Date Name Laterality Status Provider Name and Address Organization Details Recorded Time 11/20/18 98 Appendectomy completed Sherri Gannon [facility] 12/19/2017 14:13:32 extraction of wisdom tooth completed Mulu fofana MA [facility] 09/20/2022 11:16:51 Imaging Results None recorded. Procedure Notes None recorded. Medical Equipment None Reported. Allergies Allergen ID Allergen Name Allergen Category Reaction Reaction Severity Criticality Documentation Date Start Date Code Code System Note Provider Name and Address Organization Details Recorded Time 6684 Risperdal medicatio n hives Not available Not available 11/03/20132011 31576 8 RxNorm AMANDA Matthews [facility] 2 09:27:10 Medications Name Sig Start Date Stop [...] Updated DateTime 4 176.53 cm 45.6 kg/m2 626845. 41 g 110 /min 98 % 98 % 144 mm[Hg] 101 mm[Hg] Johanne Hickey MA [facility] 4 13:06:26 Date Recorded Heart rate Provider Name an d Address Organization Details Last Updated DateTime 03/16/2024 96 /min Burak Traore-Mirlande [address] [facility] [address], [place], [address], [facility] 03/16/2024 13:53:36 Social History Question Answer Notes LastModified by Organizat ion Details LastModified Time Tobacco Smoking Status Never Smoker Shelli Rocha MA null, [facility] 07/13/2014 14:57:52 Do You Have An [...] available 12/19/2017 Are You Currently Employed? Yes [email or web address] Information not available 07/13/2014 What Type Of Diet Are You Following? REGULAR [email or web address] Information not available 07/13/2014 Which Illicit Or Recreational Drugs Have You Used? None Information not available 12/19/2017 Do You Or Have You Ever Used E-cigarettes Or Vape? 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 0 Information not available 09/20/2022 Do You Take Precautions To Prevent Distracted Driving? Yes Information not available 04/07/2018 How Often Do You Need To Have Someone Help You When You Read Instructions, Pamphlets, Or Other Written Material From Your Doctor Or Pharmacy? Never Information not available 12/19/2017 Have You Served In The ? Yes [employer] crespon Information not available 04/07/2018 *AWV ONLY* Are [...] 09/20/2022 Do You Use Sunscreen Routinely? Yes [email or web address] Information not available 07/13/2014 How Many Years [...] you able to care for yourself? Yes [email or web address] Information not available 07/13/2014 What is your exercise level? Heavy biking and active at work Information not available 09/20/2022 Mental Status None recorded. Family History Relationship Description Onset Age of this Age Resolved Age Notes LastModified by Organization Details LastModified Time Mother Hypothyroidi romario burks Not available 2014 14:50:11 Notes:No FH of colon or livier st cancer Medical History No medical history recorded. Immunizations Vaccine Type Date Status Provider Name and Address Organization Details Recorded Time COVID-19, mRNA, LNP-S, PF, 100 mcg/0.5mL dose or 50 mcg/0.25mL dose 06/07/2020 completed AMANDA Chance [facility] 12/20/2021 10:31:53 COVID-19, mRNA, LNP-S, PF, 100 mcg/0.5mL dose or 50 mcg/0.25mL dose 05/10/2020 completed AMANDA Chance [facility] 12/20/2021 10:31:53 Tdap 12/19/2017 completed AMANDA Chance, [facility] 12/20/2021 10:31:53 Influenza, split virus, quadrivalent, PF 06/03/2019 cancelled Burak Ramirez PA-C [address], [address], [facility] 06/03/2019 15:22:32 Tdap 03/16/2008 completed Not Available [facility] 13:58:41 Past Encounters Encounter ID Performer Location Encounter Start Date Encounter Closed Date Diagnosis/Indication Diagnosis SNOMED-CT Code Diagnosis ICD10 Code [id number] Burak Ramirez PA-C Main Office [address] [address] 03/16/2024 12:59:09 03/16/2024 15:52:40 Adult health examination 622792312 Z00.00 Influenza vaccination declined 698383966 Z28.21 Bipolar II disorder 8322 5003 F31.81 Chronic neck pain 914070 2316 107 M54.2 Hypogonadism 12286807 E2 9.1 Obstructiv e sleep apnea syndrome 96984760 G47.33 Mixed hypercholesterolemia and hypertriglyceridemia 651181100 E78.2 Prediabetes 301791272 R7 3.03 Psoriasis 6583861 L40.9 Body mass index 40+ - severely obese 128853056 E66.01 Z68.42 Screening for malignant neoplasm of colon 425218404 Z12.11 Z12.12 Essential hypertension 77745010 I10 Health Concerns Section Related Observation LastModified by Organization Detai ls LastModified Time None Recorded Concern Status LastModified by Organization Details LastModified Time None Recorded Payers Encounter Date Sequence Insurance Name Policy Number Policy Culp Covered Member ID Culp Member ID Guarantor Name 03/16/2024 1 [facility] [id number] 1 Dav Brian [id number] Dav Brian Notes Date Note Type Note Provider Name and Address Organization Details Recorded Time 03/16/2024 text/html here for annual pe. Burak Ramirez PA-C [address], [address], [facility] 03/16/2024 13:55:41
--- OUTSIDE RECORDS SUMMARY | 2024-03-31 13:43 | XMS_ITS | Continuity of Care Document ---
Author Organization [facility] Address [address] [place] [address]- Care Team Providers Care Financial Systems Manager Name Role Phone Nathanael SLOAN, Jason Wadsworth Primary Care Physician [phone] Encounter [facility] Date(s): 02/05/24 - 03/06/24 [facility] [address] [place] [address] Encounter Type: Triage Allergies, Adverse Reactions, Alerts No Known Allergies [...] bedtime, # 270 tablet, 1 Refills, Maintenance, 10/18/23 11:40:00 AM EDT, Tablet, [facility] #[id number], 90 day supply - dose reduction, 183, cm, 01/28/23 13:03:00 EDT, Height, 140.3, kg, 10/25/21 8:17:00 EDT, Dry Weight Start Date: 10/18/23 Stop Date: 04/15/24 Status: Ordered Quantity: 270.0 Unit: tablet Repeat number: 2 SEROquel 400 mg oral tablet 1 tablet = 400 mg, By Mouth, Daily at bedtime, # 90 tablet, 1 Refills, Maintenance, 10/18/23 11:41:00 AM EDT, Tablet, [facility] #40763, 90 day supply, 183, cm, 01/28/23 13:03:00 EDT, Height, 140.3, kg, 10/25/21 8:17:00 EDT, Dry Weight Start Date: 10/18/23 Stop Date: 04/15/24 Status: Ordered Quantity: 90.0 Unit: tablet Repeat number: 2 Testosterone Cypionate 200 mg/mL intramuscular solution See Instructions, ADMINISTER 0.5 ML IN THE MUSCLE EVERY WEEK, # 5 mL, 5 Refills, Maintenance, 02/06/24 8:20:00 AM EDT, [facility] #76785, 183, cm, 01/28/23 13:03:00 EDT, Height Start Date: 02/06/24 Status: Ordered Quantity: 5.0 Unit: mL Repeat number: 6 Testosterone Cypionate 200 mg/mL intramuscular solution = 100 mg, Intramuscular, Every week, # 5 mL, 2 Refills, Maintenance, 07/13/23 4:57:00 PM EDT, [facility] #28394, Partial fill upon patient request if the [...] Care team information Care Team Personnel Name: Nathanael SLOAN, Jason Wadsworth Position: S Physician - Primary Care Member Role: PCP Address: [address] [place] [address], [place] [address] [place] [employer]: Name: Marilyn Johnson [place] Position: [facility] Office Staff Member Role: Primary Care Nurse Name: Cleo Luciano [place] Position: [facility] Office Staff Member Role: Primary Care Nurse Name: Fern Araiza RN Position: [facility] RN Member Role: Primary Care Nurse Name: Shaylee Acosta RN Position: [facility] RN Member Role: Primary Care Nurse Name: Jahaira Esteban RN Position: [facility] RN Member Role: Primary Care Nurse Name: Esther Bryan RN Position: [facility] RN Member Role: Primary Care Nurse Name: Randy Mcdonald RN Position: [facility] RN Member Role: Primary Care Nurse Care Team Related Persons Name: LEONA ANDERSON Name: EBONI ANDERSON Name: JORGE A ANDERSON Insurance Providers Guarantor name: ORIN MONICA Health Plan Information #: 1 Payer: [facility] Member Number: NA Policy Number: NA Group Number: NA
--- OUTSIDE RECORDS SUMMARY | 2024-03-31 13:44 | XMS_ITS | Continuity of Care Document ---
Author Organization [facility], Main Office Address [address] [facility] [address] [place] [address] Care Team Providers Care Nougat Candy Maker Helper Name Role Phone [facility] Psychiatri st BURAK RAMIREZ Primary Care Provider VIN JUNIOR Day Care Provider JAMEL MOLINA Admissions Nurse Assessment No assessment recorded. Plan of Treatment Reminders Order Date Submit Date Provider Last Modified By Organization Details Last Modified Time Details Appointments None recorded. Lab HbA1c (hemoglob in A1c), blood 024 NILAM [facility], [address] [facility], [address], [address], 4 06:08:20 vitamin D, 25-hydrox y, total, serum 024 NILAM [facility], [address] [place], [address], 4 06:08:22 PSA, total, serum or plasma 024 NILAM [facility], [address] [facility], [facility] [address], [place], [address], 4 06:08:21 lipid panel, serum 024 NILAM [facility], [address] , [facility] [address], [place], [address], 4 06:08:19 CMP, serum or plasma NILAM [facility], [address] [facility], [address], [place], [address], 4 06:08:19 TSH, ultra-sen sitive, serum NILAM [facility], [address] [facility], [address], [place], [address], 4 06:08:23 Referral None recorded. Procedures None recorded. Surgeries None recorded. Imaging None recorded. Medication Orders None recorded. Patient TargetsNo targets recorded. Patient Instructions Encounter Date Encounter Id Patient Instructions Last Modified By Organization Details Last Modified Time 02/08/2024 [id number] Prostate Cancer Screening [email or web address] Not available 02/08/2024 10:41:46 please give oown for 10.7, 10.13, 10.15 - is able to rtw on 02.10.24 pmadden Not available 02/08/2024 10:32:34 Reason for Referral None Reported. Problems Name Problem SNOMED Code Status Onset Date Resolution Date Notes Provider Name and Address Organization Details Recorded Time Alcohol abuse 38198475 Completed 04/14/2018 Manjinder Valladares MD [address] [facility] [address], [place], [address], [facility] 8 08:39:44 Patient status finding 642920531 Completed 12/23/2017 Manjinder Valladares MD [address] [facility] [address], [place], [address], [facility] 8 08:14:58 Depressi ve disorder 03780698 Completed 07/12/2014 Sabrina Ramirez PA-C [address] [facility] [address], [place], [address], [facility] 6 14:49:21 Diarrhea of presumed infectio us origin 66499874 Completed 200911/03/2013 RESOLVED DATE: 04/25/19 10; IMPRESSI ON: HISTORY OF VIRAL GASTRO OR FOOD POISONIN G. NOW RESOLVED .; RECORDED 04/25/19 10 4:27PM BY JASON HUFFMAN MD, OFFICE VISIT Sabrina Ramirez PA-C [address] [facility] [address], [place], [address], [facility] 6 14:49:21 Hyperlip idemia 49826152 Completed 03/16/2024 12.18 - ascvd risk 2.8% Burak eBjose luis CEDILLO [address] [facility] [address], [place], [address], [facility] 4 13:18:24 Malaise and fatigue 778515853 Completed 201111/03/2013 RECORDED 02/04/20 12 9:00AM BY JERMAIN VARGAS MA, MARCELINA ON/ADDEN DUM Sabrinamahamed CEDILLO [address] [facility] [address], [place], [address], [facility] 6 14:49:22 Disorder of male genital organ 88974311 Completed 201111/03/2013 IMPRESSI ON: SEVERE PAIN AND [...] MARCELINA ON/ADDEN DUM Sabrina Ramirez PA-C [address] [facility] [address], [place], [address], [facility] 6 14:49:22 Administ ration of bacteria l and viral vaccine Completed 200711/03/2013 RECORDED 03/16/20 08 2:04PM BY AMANDA YANES, OFFICE VISIT Sabrina Ramirez PA-C [address] [place] [address] [address], [place], [address], [facility] 6 14:49:22 Eruption 936151061 Active Sabirna Slava BUTTS [address] [place] [address] [address], [place], [address], [facility] 6 14:49:22 Sprain of ankle 65088835 Completed 201111/03/2013 RECORDED 02/04/20 12 9:00AM BY JERMAIN VARGAS MA, MARCELINA ON/ADDEN DUM Sabrina Ramirez PA-C [address] [facility] [address], [place], [address], [facility] 6 14:49:22 Increase d frequenc y of urinatio n 118209614 Completed 201111/03/2013 RECORDED 02/04/20 12 9:00AM BY JERMAIN VARGAS MA, MARCELINA ON/ADDEN DUM Sabrinajosé Ramirez PA-C [address] [facility] [address], [place], [address], [facility] 6 14:49:22 Diarrhea of presumed infectio us origin 58791590 Completed 200911/30/2013 RESOLVED DATE: 04/25/19 10; IMPRESSI ON: HISTORY OF VIRAL GASTRO OR FOOD POISONIN G. NOW RESOLVED .; RECORDED 04/25/19 10 4:27PM BY JASON HUFFMAN MD, OFFICE VISIT [facility]rina [facility]C [facility] [address], [place], [address], [facility] 6 14:49:21 Malaise and fatigue 517256587 Completed 201111/30/2013 RECORDED 02/04/20 12 9:00AM BY JERMAIN VARGAS MA, MARCELINA ON/ADDEN DUM Sabrina Ramirez PA-C [address] [facility] [address], [place], [address], [facility] 6 14:49:22 Disorder of male genital organ 95500082 Completed 201111/30/2013 IMPRESSI ON: SEVERE PAIN AND [...] VARGAS MA, MARCELINA ON/ADDEN DUM Sabrina Ramirez Edmodo-C [address], [place], [address], [facility] 6 14:49:22 Administ ration of bacteria l and viral vaccine Completed 200711/30/2013 RECORDED 03/16/20 08 2:04PM BY AMANDA YANES, OFFICE VISIT Sabrina Ramirez Edmodo-C [address], [place], [address], [facility] 6 14:49:22 Sprain of ankle 71198463 Completed 201111/30/2013 RECORDED 02/04/20 12 9:00AM BY JERMAIN VARGAS MA, ANNOTATI ON/ADDEN DUM Sabrina Ramirez Edmodo-C [address], [place], [address], [facility] 6 14:49:22 Increase d frequenc y of urinatio n 574264699 Completed 201111/30/2013 RECORDED 02/04/20 12 9:00AM BY JERMAIN VARGAS MA, MARCELINA ON/ADDEN DUM Sabrina Ramirez PA-C [address], [place], [address], [facility] 6 14:49:22 Impotenc e Active Sabrina Ramirez PA-C [address] [facility] [address], [place], [address], [facility] 6 14:49:21 Body mass index 40+ - severely obese 200568228 Completed 04/28/2020 Rajni Butt MA null, [facility] 1 09:52:38 Hypogona dism 17550821 Active Sabrina Ramirez PA-C [address] [facility] [address], [place], [address], [facility] 6 14:49:21 Upper respirat ory infectio n 54070794 Completed 04/07/2018 Manjinder Valladares MD [address] [facility] [address], [place], [address], [facility] 8 09:56:07 Cough 87078976 Completed 04/07/2018 Manjinder Valladares MD [address] [facility] [address], [place], [address], [facility] 8 09:56:04 Excessiv e cerumen in ear canal 195481444 Completed 12/23/2017 Manjinder Valladares MD [address] [facility] [address], [place], [address], [facility] 8 08:15:05 Elevated blood-pr essure reading without diagnosi s of hyperten mark 374835563 Completed 02/23/2019 Jason Huffman MD [address] [facility] [address], [place], [address], [facility] 9 10:07:56 Lumbar sprain 864608387 Active Tong dahl MD [address] [facility] [address], [place], [address], [facility] 6 22:10:22 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 624420262 Active 2017 Manjinder Valladares MD [address], [place], [address], [facility] 8 08:40:38 Major depressi ve disorder 482014416 Completed 202011/23/2021 Manjinder Valladares MD [address], [place], [address], [facility] 2 07:59:24 Bipolar II disorder 72925293 Active 2020 Burak Ramirez PA-C [address], [place], [address], [facility] 1 10:26:18 Chronic neck pain 02342921370 07 Active 2020 Burak Ramirez PA-C [address], [place], [address], [facility] 1 10:27:16 Psoriasi s 1229456 Active 2020 Burak Ramirez PA-C [address], [place], [address], [facility] 1 10:31:49 Snoring 97083624 Completed 202003/16/2024 Burak Ramirez PA-C [address], [place], [address], [facility] 4 13:16:37 Impaired fasting glycemia 383666503 Active 2020 Burak Ramirez PA-C [address], [place], [address], [facility] 1 10:32:07 Major depressi on with psychoti c features 173410097 Active 2021 Manjinder Valladares MD [address], [place], [address], [facility] 2 07:58:41 Severe recurren t major depressi on with psychoti c features 27571460 Active 2021 Manjinder Valladares MD [address], [place], [address], [facility] 2 07:59:06 Morbid obesity 555469256 Active 2021 Christina Peralta null, [facility] 2 10:58:33 Obstruct everett sleep apnea syndrome 31995706 Active 2021 does not use the CPAP machine Mulu mckay MA null, [facility] 3 11:22:36 Macrocyt osis - no anemia 066799407 Active 2021 Burak Ramirez PA-C [address], [place], [address], [facility] 2 13:01:09 Increase d liver function 82697174 Active 2021 Manjinder Valladares MD [address], [place], [address], [facility] 2 09:36:37 Prediabe samina 033691480 Active 2023 Burak Ramirez PA-C [address], [place], [address], [facility] 4 13:20:04 Essentia l hyperten mark 78750100 Active 2023 Burak Ramirez PA-C [address], [place], [address], [facility] 4 13:54:48 Problem Notes None recorded. Procedures Surgical History Date Name Laterality Status Provider Name and Address Organization Details Recorded Time 11/20/18 98 Appendectomy completed Sherri Gannon [facility] 12/19/2017 14:13:32 extraction of wisdom tooth completed Mulu fofana MA [facility] 09/20/2022 11:16:51 Imaging Results None recorded. Procedure Notes None recorded. Medical Equipment None Reported. Allergies Allergen ID Allergen Name Allergen Category Reaction Reaction Severity Criticality Documentation Date Start Date Code Code System Note Provider Name and Address Organization Details Recorded Time 6630 Risperdal medicatio n hives Not available Not available 11/03/20132011 36427 8 RxNorm AMANDA Matthews [facility] 2 09:27:10 Medications Name Sig Start Date [...] tablets in a dose pack TK 2 NIRNVTRE LVIR TS AND 1 RITONAVI R T [...] Updated DateTime 4 176.53 cm 48.5 kg/m2 204660. 26 g 115 /min 97 % 97 % 97.7 [degF] 137 mm[Hg] 87 mm[Hg] Adam mcginnis MA [facility] 4 10:03:26 Social History Question Answer Notes LastModified by Organizat ion Details LastModified Time Tobacco Smoking Status [facility] 14:57:52 Do You Have An Advance [...] available 12/19/2017 Are You Currently Employed? Yes [email or web address] Information not available 07/13/2014 What Type Of Diet Are You Following? REGULAR [email or web address] Information not available 07/13/2014 Which Illicit Or Recreational Drugs Have You Used? None Information not available 12/19/2017 Do You Or Have You Ever Used E-cigarettes Or Vape? 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 1 Step-son [email or web address] Information not available 02/23/2019 What Is Your Current Pack Years? 0 N/a Information not available 09/20/2022 Are You Sexually Active? Yes (Marilyn) Information not available 09/20/2022 At What Age Did You Start Smoking Tobacco? 0 Information not available 12/19/2017 Are You Passively Exposed To Smoke? No Information not available 04/07/2018 Do You Or Have You Ever Used Smokeless Tobacco? Never Used Smokeless Tobacco [email or web address] Information not available 02/23/2019 How Much Tobacco Do You Smoke? No Information not available 12/19/2017 Do You Use Any Illicit Or Recreational Drugs? No Information not available 09/20/2022 Do You Use Sunscreen Routinely? Yes Information not available 07/13/2014 How Many Years [...] you able to care for yourself? Yes [email or web address] Information not available 07/13/2014 What is your [...] history recorded. Immunizations Vaccine Type Date Status Note Provider Kashif mathur and Address Organization Details Recorded Time COVID-19, mRNA, LNP-S, PF, 100 mcg/0.5mL dose or 50 mcg/0.25mL dose 1 completed AMANDA Chance [facility] 12/20/2021 10:31:53 COVID-19, mRNA, LNP-S, PF, 100 mcg/0.5mL dose or 50 mcg/0.25mL dose 1 completed AMANDA Chance [facility] 12/20/2021 10:31:53 Tdap 8 completed AMANDA Chance [facility] 12/20/2021 10:31:53 Influenza, split virus, quadrivalent , PF 0 cancelled patient objection Burak Ramirez PA-C [address], [address], [facility] 06/03/2019 15:22:32 Tdap 8 completed Not Available [facility] 13:58:41 Past Encounters Encounter ID Performer Location Encounter Start Date Encounter Closed Date Diagnosis/Indication Diagnosis SNOMED-CT Code Diagnosis ICD10 Code [id number] Burak Ramirez PA-C Main Office [address] [address] 02/08/2024 09:45:32 02/08/2024 10:49:00 Psoriasis 5535426 L40.9 Hyperlipidemia 19005868 E78.5 Vitamin D deficiency 347 66970 E55.9 Impaired f asting glycemia 379616561 R73.01 Fatigue 38552950 R53.83 Nocturia 632016896 R35.1 Health Concerns Section Related Observation LastModified by Organization Detai ls LastModified Time None Recorded Concern Status LastModified by Organization Details LastModified Time None Recorded Payers Encounter Date Sequence Insurance Name Policy Number Policy Culp Covered Member ID Culp Member ID Guarantor Name 02/08/2024 1 [facility] [id number] 1 Dav Brian [id number] Dav Brian Notes Date Note Type Note Provider Name and Address Organization Details Recorded Time 02/08/2024 text/html psoriasis flare up- wants OOWNwas scheduled with AW for TH but PT could not do video so AW said to book saturday is followed by derm, and also by rheum - reviewed last consult notes pt requests oown for time missed last week -- severed itching/discomfort - 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
--- NOTE | 2024-03-31 15:06 | P.PNPSI_ITS ---
Subjective Subjective Date of Service: 03/31/24 Reason For Visit: Mental health crisis Interim History: in bed in restraint room, sleeping heavily, slow to rouse.reports mood is leveling out. thoughts slowing down. remains disorganized. per staff, taking meds. postured over roommate last night, made intimidating comment. slept in ante room. transferred to [facility] this morning. slept 8 hours. Mental Status Exam Mental Status Exam Narrative: obese, adequately dressed and groomed. less PMR. cooperative. speech soft, less MARY; faster responses and more verbal output has plateaued. thoughts vague and disorganized. affect blunted. mood leveling out. no SI/HI/AVH expressed. Diagnostics Vital Signs (24Hr): Vital Signs - 24 hr 03/30/24 20:00 03/31/24 08:00 Temperature 97.5 F 97.7 F Pulse Rate 91 87 Respiratory Rate 18 18 Blood Pressure 131/101 H 125/88 Pulse Oximetry 95 96 Oxygen Delivery Method Room Air Room Air BMI result Body Mass Index 41.1 Labs 03/25/24 07:55 03/24/24 13:49 Medications Medications Current Medications Acetaminophen (Acetaminophen 325 Mg Tablet) 650 mg PO Q6H PRN PRN Reason: Headache/Pain Mild Scale (1-3) Al Hydroxide/Mg Hydroxide (Magnesium Hydrox/Alum Hydrox 30 Ml Oral.Susp) 30 ml PO Q6H PRN PRN Reason: Heartburn/Nausea Clonidine HCl (Clonidine Hcl 0.1 Mg Tablet) 0.1 mg PO Q4H PRN; Protocol PRN Reason: SBP > 159 Divalproex Sodium (Divalproex Sodium Er 500 Mg Tab.Er.24h) 1,500 mg PO BEDTIME [facility] Last Admin: 03/30/24 20:49 Dose: 1,500 mg Hydroxyzine HCl (Hydroxyzine Hcl 25 Mg Tablet) 25 mg PO Q6H PRN PRN Reason: Anxiety Lorazepam (Lorazepam 1 Mg Tablet) 1 mg PO TID [facility] Last Admin: 03/31/24 08:43 Dose: 1 mg Losartan Potassium (Losartan Potassium 50 Mg Tablet) 50 mg PO DAILY [facility]; Protocol Last Admin: 03/31/24 08:42 Dose: 50 mg Magnesium Hydroxide (Milk Of Magnesia 30 Ml Oral.Susp) 30 ml PO DAILY PRN PRN Reason: Constipation Nicotine Polacrilex (Nicotine Polacrilex 2 Mg Gum) 4 mg BUCCAL Q2H PRN PRN Reason: Nicotine Cravings Quetiapine Fumarate (Quetiapine Fumarate 400 Mg Tablet) 400 mg PO BEDTIME LIZETH Last Admin: 03/30/24 20:49 Dose: 400 mg Trazodone HCl (Trazodone Hcl 50 Mg Tablet) 50 mg PO BEDTIME MRX1 PRN PRN Reason: Insomnia Last Admin: 03/25/24 00:26 Dose: 50 mg Triamcinolone Acetonide (Triamcinolone Acet 0.1 % Cream 15 Gm Tube) 1 appl TOPICAL DAILY LIZETH; Protocol Stop: 04/08/24 10:14 Last Admin: 03/31/24 08:43 Dose: 1 appl Allergies Allergies Allergy/AdvReac Type Severity Reaction Status Date / Time No Known Allergies Allergy Verified 04/24/23 08:39 Assessment & Plan Assessment & Plan (1) HTN (hypertension): Status: Acute Code(s): I10 - Essential (primary) hypertension (2) TIFFANY on CPAP: Status: Acute Code(s): G47.33 - Obstructive sleep apnea (adult) (pediatric) (3) Bipolar I disorder: Status: Acute Code(s): F31.9 - Bipolar disorder, unspecified Plan 03/25: VPA level 19.1. restart VPA and titrate to dosing more likely to produce a therapeutic level. restart/continue seroquel 400 QHS. add ativan 1 TID for apparent catatonia. T/C adding lithium or wellbutrin for augmentation. 03/26: substantially less slow and more verbal than yesterday. continue current mgmt for now. 03/27: continues daily improvement in PMR/paucity of thought. continue current mgmt. 03/29/2024: No changes to current plan. Appears to be very gradual improvements. Ongoing admission as unable to care for self. 03/30: more verbal, but verbal content notable for vagueness and disorganization. does c/o mood lability, rapid thoughts. continue current mgmt, check VPA and labs tomorrow NOC. 03/31: remains vague, disorganized. states his mood is leveling out, however, and his thoughts slowing down. T/C switch to lithium due to combined antidepressant and mood stabilizing effects. Reason for continued inpatient stay Substantial Risk for: harm to others, inability to function and rapid decompensation Time Spent With Patient Time: Total time managing care of this patient today __25__ minutes.
[2024-03-31 20:30] VITALS: BP 158/98; PULSE 80; RESP 18; TEMP 36.4; O2SAT 96
[2024-03-31 20:30] LABS: MANUAL DIFF FLAG NO
[2024-03-31 20:32] LABS: Basophils Absolute Auto 0.1 X10*3/uL (0.0-0.2); Basophils Percent Auto 1.3 % (0-2); Eosinophils Absolute Auto 0.2 X10*3/uL (0.0-0.4); Eosinophils Percent Auto 1.8 % (0-4); Hematocrit 44.1 % (42.0-52.0); Hemoglobin 15.1 g/dl (14.0-18.0); Imm Gran Abs Auto 0.04 X10*3/uL (0.00-0.03); Imm Gran Pct Auto 0.4 % (0.0-0.4); Lymphocytes Absolute Auto 3.7 X10*3/uL (1.2-4.9); Lymphocytes Percent Auto 37.1 % (20-40); Mean Corpuscular HGB Conc 34.2 g/dl (31.0-36.0); Mean Corpuscular Hemoglobin 29.6 pg (27.0-33.0); Mean Corpuscular Volume 86.5 fL (80.0-98.0); Mean Platelet Volume 8.4 fL (9.4-12.4); Monocytes Absolute Auto 0.9 X10*3/uL (0.1-1.2); Monocytes Percent Auto 9.2 % (2-11); Neutrophils Percent Auto 50.2 % (45-73); Platelet Count 296 X10*3/uL (160-400)
[2024-03-31 20:46] LABS: Ammonia 66 umol/L (13-55)
[2024-03-31 20:49] LABS: Valproate 15.9 mcg/mL (50.0-100.0)
[2024-03-31 20:51] LABS: Alanine Aminotransferase 65 U/L (0-40); Albumin Level 4.5 g/dL (3.5-5.0); Alkaline Phosphatase 65 U/L (39-117); Anion Gap 18 (12-20); Aspartate Amino Transferase 31 U/L (5-37); Bilirubin Direct 0.1 mg/dL (0.0-0.5); Bilirubin Total 0.3 mg/dL (0.0-1.0); Blood Urea Nitrogen 15 mg/dL (9-16); Calcium 9.5 mg/dL (8.4-10.2); Carbon Dioxide 22 mmol/L (22-29); Chloride 103 mmol/L (96-108); Creatinine Clr Calc Pharmacy 152.7; Estimated Glomerular Filt Rate > 60; Glucose Random 90 mg/dL (60-115); Potassium 4.1 mmol/L (3.3-5.1); Sodium 139 mmol/L (135-145)
[2024-03-31] MEDS: Divalproex Sodium ER 500 MG TAB.ER.24H 1500 MG PO (20:54)
[2024-03-31] MEDS: QUEtiapine Fumarate 400 MG TABLET PO (20:54)
[2024-04-01 09:32] VITALS: BP 122/74; PULSE 93; RESP 16; TEMP 36.8; O2SAT 96
[2024-04-01] MEDS: LORazepam 1 MG TABLET PO ×3 (09:36→20:59)
[2024-04-01] MEDS: Losartan Potassium 50 MG TABLET PO (09:36)
[2024-04-01] MEDS: Triamcinolone Acet 0.1 % Cream 15 GM TUBE 1 APPL TOPICAL (09:37)
[2024-04-01] MEDS: Lithium Carbonate ER 300 MG TABLET.ER 600 MG PO ×2 (13:54→20:59)
--- NOTE | 2024-04-01 14:42 | P.PNPSI_ITS ---
Subjective Subjective Date of Service: 04/01/24 Reason For Visit: Mental health crisis Interim History: intense, stony. disorganized, mistrustful. seen individually and also in family mtg with JAIMIE Marilin and pt's . discussed plan to taper VPA and start lithium. pt in agreement, and to remain in hospital longer to accomplish goal of stability prior to discharge. per staff, denies Sx. paranoid: this place has a lot of thieves. who has access to my room when i sleep? to manic peer: get the fuck away from me. Mental Status Exam Mental Status Exam Narrative: obese, adequately dressed and groomed. less PMR. cooperative. speech soft, less MARY; faster responses and more verbal output. thoughts vague and disorganized, with moments of linearity. affect blunted. mood calm. no SI/HI/AVH expressed. Diagnostics Vital Signs (24Hr): Vital Signs - 24 hr 03/31/24 20:30 04/01/24 09:32 Temperature 97.6 F 98.3 F Pulse Rate 80 93 Respiratory Rate 18 16 Blood Pressure 158/98 H 122/74 Pulse Oximetry 96 96 Oxygen Delivery Method Room Air Room Air BMI result Body Mass Index 41.1 Labs 03/31/24 20:16 03/31/24 20:16 Labs: Laboratory Results - last 48 hr 03/31/24 20:16 WBC 10.0 RBC 5.10 Hgb 15.1 Hct 44.1 MCV 86.5 MCH 29.6 MCHC 34.2 RDW 15.0 Plt Count 296 MPV 8.4 L Immature Gran % (Auto) 0.4 Neut % (Auto) 50.2 Lymph % (Auto) 37.1 [place] % (Auto) 9.2 Eos % (Auto) 1.8 Baso % (Auto) 1.3 Lymph # (Auto) 3.7 [place] # (Auto) 0.9 Eos # (Auto) 0.2 Baso # (Auto) 0.1 Abs Immat Gran (auto) 0.04 H Absolute Neuts (auto) 5.0 Absolute Nucleated RBC 0.000 Nucleated RBC % (auto) 0.0 Sodium 139 Potassium 4.1 Chloride 103 Carbon Dioxide 22 Anion Gap 18 BUN 15 Creatinine 0.85 Estim Creat Clear Calc 152.7 Estimated GFR > 60 Random Glucose 90 Calcium 9.5 D Total Bilirubin 0.3 Direct Bilirubin 0.1 AST 31 ALT 65 H Alkaline Phosphatase 65 Ammonia 66 H Total Protein 8.0 Albumin 4.5 Valproic Acid 15.9 L Medications Medications Current Medications Acetaminophen (Acetaminophen 325 Mg Tablet) 650 mg PO Q6H PRN PRN Reason: Headache/Pain Mild Scale (1-3) Al Hydroxide/Mg Hydroxide (Magnesium Hydrox/Alum Hydrox 30 Ml Oral.Susp) 30 ml PO Q6H PRN PRN Reason: Heartburn/Nausea Clonidine HCl (Clonidine Hcl 0.1 Mg Tablet) 0.1 mg PO Q4H PRN; Protocol PRN Reason: SBP > 159 Divalproex Sodium (Divalproex Sodium Er 500 Mg Tab.Er.24h) 1,000 mg PO BEDTIME LIZETH Hydroxyzine HCl (Hydroxyzine Hcl 25 Mg Tablet) 25 mg PO Q6H PRN PRN Reason: Anxiety [place] Carbonate ([place] Carbonate Er 300 Mg Tablet.Er) 600 mg PO BID LIZETH Last Admin: 04/01/24 13:54 Dose: 600 mg Lorazepam (Lorazepam 1 Mg Tablet) 1 mg PO TID LIZETH Last Admin: 04/01/24 13:55 Dose: 1 mg Losartan Potassium (Losartan Potassium 50 Mg Tablet) 50 mg PO DAILY LIZETH; Protocol Last Admin: 04/01/24 09:36 Dose: 50 mg Magnesium Hydroxide (Milk Of Magnesia 30 Ml Oral.Susp) 30 ml PO DAILY PRN PRN Reason: Constipation Nicotine Polacrilex (Nicotine Polacrilex 2 Mg Gum) 4 mg BUCCAL Q2H PRN PRN Reason: Nicotine Cravings Quetiapine Fumarate (Quetiapine Fumarate 400 Mg Tablet) 400 mg PO BEDTIME LIZETH Last Admin: 03/31/24 20:54 Dose: 400 mg Trazodone HCl (Trazodone Hcl 50 Mg Tablet) 50 mg PO BEDTIME MRX1 PRN PRN Reason: Insomnia Last Admin: 03/25/24 00:26 Dose: 50 mg Triamcinolone Acetonide (Triamcinolone Acet 0.1 % Cream 15 Gm Tube) 1 appl TOPICAL DAILY LIZETH; Protocol Stop: 04/08/24 10:14 Last Admin: 04/01/24 09:37 Dose: 1 appl Allergies Allergies Allergy/AdvReac Type Severity Reaction Status Date / Time No Known Allergies Allergy Verified 04/24/23 08:39 Assessment & Plan Assessment & Plan (1) HTN (hypertension): Status: Acute Code(s): I10 - Essential (primary) hypertension (2) TIFFANY on CPAP: Status: Acute Code(s): G47.33 - Obstructive sleep apnea (adult) (pediatric) (3) Bipolar I disorder: Status: Acute Code(s): F31.9 - Bipolar disorder, unspecified Plan 03/25: VPA level 19.1. restart VPA and titrate to dosing more likely to produce a therapeutic level. restart/continue seroquel 400 QHS. add ativan 1 TID for apparent catatonia. T/C adding lithium or wellbutrin for augmentation. 03/26: substantially less slow and more verbal than yesterday. continue current mgmt for now. 03/27: continues daily improvement in PMR/paucity of thought. continue current mgmt. 03/29/2024: No changes to current plan. Appears to be very gradual improvements. Ongoing admission as unable to care for self. 03/30: more verbal, but verbal content notable for vagueness and disorganization. does c/o mood lability, rapid thoughts. continue current mgmt, check VPA and labs tomorrow NOC. 03/31: remains vague, disorganized. states his mood is leveling out, however, and his thoughts slowing down. T/C switch to lithium due to combined antidepressant and mood stabilizing effects. 04/01: VPA 15.9 while ammonia 66. rapid taper of VPA and start lithium 600 BID. otherwise continue current mgmt. Reason for continued inpatient stay Substantial Risk for: inability to function and rapid decompensation Time Spent With Patient Time: Total time managing care of this patient today __55__ minutes.
[2024-04-01 20:00] VITALS: BP 139/76; PULSE 83; RESP 16; TEMP 36.6; O2SAT 96
[2024-04-01] MEDS: QUEtiapine Fumarate 400 MG TABLET PO (20:59)
[2024-04-01] MEDS: Divalproex Sodium ER 500 MG TAB.ER.24H 1000 MG PO (20:59)
[2024-04-02 07:39] VITALS: BP 131/79; PULSE 85; RESP 16; TEMP 36.6; O2SAT 96
[2024-04-02 08:00] VITALS: BP 131/79; PULSE 85; RESP 16; TEMP 36.6; O2SAT 96
[2024-04-02] MEDS: LORazepam 1 MG TABLET PO ×3 (08:43→20:54)
[2024-04-02] MEDS: Lithium Carbonate ER 300 MG TABLET.ER 600 MG PO ×2 (08:43→20:53)
[2024-04-02] MEDS: Losartan Potassium 50 MG TABLET PO (08:43)
[2024-04-02] MEDS: Triamcinolone Acet 0.1 % Cream 15 GM TUBE 1 APPL TOPICAL (14:57)
--- NOTE | 2024-04-02 15:54 | HO.PSYCHPN ---
Subjective Subjective Date of Service: 04/02/24 Reason For Visit: Mental health crisis Interim History: some poor sleep overnight due to CPAP and 1:1 and noise on the unit. otherwise no complaints. remains slowed and terse. agreeable to continue VPA taper. per staff, slept 8 hours. labile, agitated. taking meds, attending groups. no agitation eves. more pleasant in the afternoon. Mental Status Exam Mental Status Exam Narrative: obese, adequately dressed and groomed. less PMR. cooperative. speech soft, less MARY, remains very terse. thoughts less vague and more concrete, with moments of linearity. affect blunted. mood calm. no SI/HI/AVH expressed. Diagnostics Vital Signs (24Hr): Vital Signs - 24 hr 04/01/24 20:00 04/02/24 07:39 04/02/24 08:00 Temperature 98 F 97.9 F 97.9 F Pulse Rate 83 85 85 Respiratory Rate 16 16 16 Blood Pressure 139/76 131/79 131/79 Pulse Oximetry 96 96 96 Oxygen Delivery Method Room Air Room Air Room Air BMI result Body Mass Index 41.1 Labs 03/31/24 20:16 03/31/24 20:16 Labs: Laboratory Results - last 48 hr 03/31/24 20:16 WBC 10.0 RBC 5.10 Hgb 15.1 Hct 44.1 MCV 86.5 MCH 29.6 MCHC 34.2 RDW 15.0 Plt Count 296 MPV 8.4 L Immature Gran % (Auto) 0.4 Neut % (Auto) 50.2 Lymph % (Auto) 37.1 [place] % (Auto) 9.2 Eos % (Auto) 1.8 Baso % (Auto) 1.3 Lymph # (Auto) 3.7 [place] # (Auto) 0.9 Eos # (Auto) 0.2 Baso # (Auto) 0.1 Abs Immat Gran (auto) 0.04 H Absolute Neuts (auto) 5.0 Absolute Nucleated RBC 0.000 Nucleated RBC % (auto) 0.0 Sodium 139 Potassium 4.1 Chloride 103 Carbon Dioxide 22 Anion Gap 18 BUN 15 Creatinine 0.85 Estim Creat Clear Calc 152.7 Estimated GFR > 60 Random Glucose 90 Calcium 9.5 D Total Bilirubin 0.3 Direct Bilirubin 0.1 AST 31 ALT 65 H Alkaline Phosphatase 65 Ammonia 66 H Total Protein 8.0 Albumin 4.5 Valproic Acid 15.9 L Medications Medications Current Medications Acetaminophen (Acetaminophen 325 Mg Tablet) 650 mg PO Q6H PRN PRN Reason: Headache/Pain Mild Scale (1-3) Al Hydroxide/Mg Hydroxide (Magnesium Hydrox/Alum Hydrox 30 Ml Oral.Susp) 30 ml PO Q6H PRN PRN Reason: Heartburn/Nausea Clonidine HCl (Clonidine Hcl 0.1 Mg Tablet) 0.1 mg PO Q4H PRN; Protocol PRN Reason: SBP > 159 Divalproex Sodium (Divalproex Sodium Er 250 Mg Tab.Er.24h) 750 mg PO BEDTIME LIZETH Hydroxyzine HCl (Hydroxyzine Hcl 25 Mg Tablet) 25 mg PO Q6H PRN PRN Reason: Anxiety [place] Carbonate ([place] Carbonate Er 300 Mg Tablet.Er) 600 mg PO BID LIZETH Last Admin: 04/02/24 08:43 Dose: 600 mg Lorazepam (Lorazepam 1 Mg Tablet) 1 mg PO TID LIZETH Last Admin: 04/02/24 14:57 Dose: 1 mg Losartan Potassium (Losartan Potassium 50 Mg Tablet) 50 mg PO DAILY LIZETH; Protocol Last Admin: 04/02/24 08:43 Dose: 50 mg Magnesium Hydroxide (Milk Of Magnesia 30 Ml Oral.Susp) 30 ml PO DAILY PRN PRN Reason: Constipation Nicotine Polacrilex (Nicotine Polacrilex 2 Mg Gum) 4 mg BUCCAL Q2H PRN PRN Reason: Nicotine Cravings Quetiapine Fumarate (Quetiapine Fumarate 400 Mg Tablet) 400 mg PO BEDTIME LIZETH Last Admin: 04/01/24 20:59 Dose: 400 mg Trazodone HCl (Trazodone Hcl 50 Mg Tablet) 50 mg PO BEDTIME MRX1 PRN PRN Reason: Insomnia Last Admin: 03/25/24 00:26 Dose: 50 mg Triamcinolone Acetonide (Triamcinolone Acet 0.1 % Cream 15 Gm Tube) 1 appl TOPICAL DAILY LIZETH; Protocol Stop: 04/08/24 10:14 Last Admin: 04/02/24 14:57 Dose: 1 appl Allergies Allergies Allergy/AdvReac Type Severity Reaction Status Date / Time valproic acid AdvReac Severe hyperammone Verified 04/01/24 14:45 michelle Assessment & Plan Assessment & Plan (1) HTN (hypertension): Status: Acute Code(s): I10 - Essential (primary) hypertension (2) TIFFANY on CPAP: Status: Acute Code(s): G47.33 - Obstructive sleep apnea (adult) (pediatric) (3) Bipolar I disorder: Status: Acute Code(s): F31.9 - Bipolar disorder, unspecified Plan 03/25: VPA level 19.1. restart VPA and titrate to dosing more likely to produce a therapeutic level. restart/continue seroquel 400 QHS. add ativan 1 TID for apparent catatonia. T/C adding lithium or wellbutrin for augmentation. 03/26: substantially less slow and more verbal than yesterday. continue current mgmt for now. 03/27: continues daily improvement in PMR/paucity of thought. continue current mgmt. 03/29/2024: No changes to current plan. Appears to be very gradual improvements. Ongoing admission as unable to care for self. 03/30: more verbal, but verbal content notable for vagueness and disorganization. does c/o mood lability, rapid thoughts. continue current mgmt, check VPA and labs tomorrow NOC. 03/31: remains vague, disorganized. states his mood is leveling out, however, and his thoughts slowing down. T/C switch to lithium due to combined antidepressant and mood stabilizing effects. 04/01: VPA 15.9 while ammonia 66. rapid taper of VPA and start lithium 600 BID. otherwise continue current mgmt. 04/02: taking lithium, tolerated VPA 1000 last night. go to 750 tonight. continue current mgmt otherwise. [place] paperwork completed. Reason for continued inpatient stay Substantial Risk for: inability to function and rapid decompensation Time Spent With Patient Time: Total time managing care of this patient today __35__ minutes.
[2024-04-02 20:00] VITALS: BP 130/87; PULSE 84; RESP 16; TEMP 36.9; O2SAT 96
[2024-04-02] MEDS: Divalproex Sodium ER 250 MG TAB.ER.24H 750 MG PO (20:53)
[2024-04-02] MEDS: QUEtiapine Fumarate 400 MG TABLET PO (20:54)
[2024-04-03 07:47] VITALS: BP 121/72; PULSE 80; RESP 18; TEMP 36.4; O2SAT 97
[2024-04-03] MEDS: Lithium Carbonate ER 300 MG TABLET.ER 600 MG PO ×2 (08:54→20:28)
[2024-04-03 08:55] VITALS: BP 121/72
[2024-04-03] MEDS: LORazepam 1 MG TABLET PO ×3 (08:55→20:28)
[2024-04-03] MEDS: Losartan Potassium 50 MG TABLET PO (08:55)
--- NOTE | 2024-04-03 16:29 | P.PNPSI_ITS ---
Subjective Subjective Date of Service: 04/03/24 Reason For Visit: Mental health crisis Interim History: calm, cooperative. a bit more organized and less vague. amenable to continue VPA taper over w/e. per staff, taking meds. no SI/SIBI. Mental Status Exam Mental Status Exam Narrative: obese, adequately dressed and groomed. less PMR. cooperative. speech soft, less MARY. thoughts less vague and more organized. affect blunted. mood calm. no SI/HI/AVH expressed. Diagnostics Vital Signs (24Hr): Vital Signs - 24 hr 04/02/24 20:00 04/03/24 07:47 04/03/24 08:55 Temperature 98.4 F 97.5 F Pulse Rate 84 80 Respiratory Rate 16 18 Blood Pressure 130/87 121/72 121/72 Pulse Oximetry 96 97 Oxygen Delivery Method Room Air Room Air BMI result Body Mass Index 41.1 Labs 03/31/24 20:16 03/31/24 20:16 Medications Medications Current Medications Acetaminophen (Acetaminophen 325 Mg Tablet) 650 mg PO Q6H PRN PRN Reason: Headache/Pain Mild Scale (1-3) Al Hydroxide/Mg Hydroxide (Magnesium Hydrox/Alum Hydrox 30 Ml Oral.Susp) 30 ml PO Q6H PRN PRN Reason: Heartburn/Nausea Clonidine HCl (Clonidine Hcl 0.1 Mg Tablet) 0.1 mg PO Q4H PRN; Protocol PRN Reason: SBP > 159 Divalproex Sodium (Divalproex Sodium Er 250 Mg Tab.Er.24h) 750 mg PO BEDTIME [facility] Last Admin: 04/02/24 20:53 Dose: 750 mg Hydroxyzine HCl (Hydroxyzine Hcl 25 Mg Tablet) 25 mg PO Q6H PRN PRN Reason: Anxiety [place] Carbonate ([place] Carbonate Er 300 Mg Tablet.Er) 600 mg PO BID [facility] Last Admin: 04/03/24 08:54 Dose: 600 mg Lorazepam (Lorazepam 1 Mg Tablet) 1 mg PO TID [facility] Last Admin: 04/03/24 15:36 Dose: 1 mg Losartan Potassium (Losartan Potassium 50 Mg Tablet) 50 mg PO DAILY [facility]; Protocol Last Admin: 04/03/24 08:55 Dose: 50 mg Magnesium Hydroxide (Milk Of Magnesia 30 Ml Oral.Susp) 30 ml PO DAILY PRN PRN Reason: Constipation Nicotine Polacrilex (Nicotine Polacrilex 2 Mg Gum) 4 mg BUCCAL Q2H PRN PRN Reason: Nicotine Cravings Quetiapine Fumarate (Quetiapine Fumarate 400 Mg Tablet) 400 mg PO BEDTIME LIZETH Last Admin: 04/02/24 20:54 Dose: 400 mg Trazodone HCl (Trazodone Hcl 50 Mg Tablet) 50 mg PO BEDTIME MRX1 PRN PRN Reason: Insomnia Last Admin: 03/25/24 00:26 Dose: 50 mg Triamcinolone Acetonide (Triamcinolone Acet 0.1 % Cream 15 Gm Tube) 1 appl TOPICAL DAILY LIZETH; Protocol Stop: 04/08/24 10:14 Last Admin: 04/03/24 09:18 Dose: Not Given Allergies Allergies Allergy/AdvReac Type Severity Reaction Status Date / Time valproic acid AdvReac Severe hyperammone Verified 04/01/24 14:45 michelle Assessment & Plan Assessment & Plan (1) HTN (hypertension): Status: Acute Code(s): I10 - Essential (primary) hypertension (2) TIFFANY on CPAP: Status: Acute Code(s): G47.33 - Obstructive sleep apnea (adult) (pediatric) (3) Bipolar I disorder: Status: Acute Code(s): F31.9 - Bipolar disorder, unspecified Plan 03/25: VPA level 19.1. restart VPA and titrate to dosing more likely to produce a therapeutic level. restart/continue seroquel 400 QHS. add ativan 1 TID for apparent catatonia. T/C adding lithium or wellbutrin for augmentation. 03/26: substantially less slow and more verbal than yesterday. continue current mgmt for now. 03/27: continues daily improvement in PMR/paucity of thought. continue current mgmt. 03/29/2024: No changes to current plan. Appears to be very gradual improvements. Ongoing admission as unable to care for self. 03/30: more verbal, but verbal content notable for vagueness and disorganization. does c/o mood lability, rapid thoughts. continue current mgmt, check VPA and labs tomorrow NOC. 03/31: remains vague, disorganized. states his mood is leveling out, however, and his thoughts slowing down. T/C switch to lithium due to combined antidepressant and mood stabilizing effects. 04/01: VPA 15.9 while ammonia 66. rapid taper of VPA and start lithium 600 BID. otherwise continue current mgmt. 04/02: taking lithium, tolerated VPA 1000 last night. go to 750 tonight. continue current mgmt otherwise. FML[employer] paperwork completed. 04/03: continue VPA taper through the weekend. thoughts becoming more organized and less vague. continue current mgmt otherwise. Reason for continued inpatient stay Substantial Risk for: inability to function and rapid decompensation Time Spent With Patient Time: Total time managing care of this patient today __25__ minutes.
[2024-04-03 20:00] VITALS: BP 141/85; PULSE 81; RESP 18; TEMP 36.9; O2SAT 98
[2024-04-03] MEDS: QUEtiapine Fumarate 400 MG TABLET PO (20:28)
[2024-04-03] MEDS: Divalproex Sodium ER 250 MG TAB.ER.24H 750 MG PO (20:28)
[2024-04-04 07:55] VITALS: BP 128/77; PULSE 76; RESP 16; TEMP 36.7; O2SAT 93
[2024-04-04] MEDS: Triamcinolone Acet 0.1 % Cream 15 GM TUBE 1 APPL TOPICAL (09:08)
[2024-04-04 09:09] VITALS: BP 128/77
[2024-04-04] MEDS: Losartan Potassium 50 MG TABLET PO (09:09)
[2024-04-04] MEDS: Lithium Carbonate ER 300 MG TABLET.ER 600 MG PO ×2 (09:09→21:04)
[2024-04-04] MEDS: LORazepam 1 MG TABLET PO ×3 (09:09→21:04)
--- NOTE | 2024-04-04 10:15 | P.PNPSI_ITS ---
Subjective Subjective Date of Service: 04/04/24 Reason For Visit: Mental health crisis Subjective Notes: Conditional Voluntary Interim History: in room. 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 Also more verbal and making more sense for/less vague. Talked about stress related to work, losing his pet. no med concerns. No SI. Feeling supported by hospital and family. Medication Compliance: Yes Side effects from medications: No Attending Groups: Intermittent Review of Systems Acute medical concerns: No Review of Systems Review of Systems nothing acute noted Mental Status Exam Mental Status Exam Narrative: obese, adequately dressed and groomed. Much less PMR. cooperative. speech soft. Thoughts much less vague and more organized. affect blunted. mood calm. no SI/HI/AVH expressed. Diagnostics Vital Signs (24Hr): Vital Signs - 24 hr 04/03/24 20:00 04/04/24 07:55 04/04/24 09:09 Temperature 98.4 F 98.0 F Pulse Rate 81 76 Respiratory Rate 18 16 Blood Pressure 141/85 H 128/77 128/77 Pulse Oximetry 98 93 Oxygen Delivery Method Room Air Room Air BMI result Body Mass Index 41.1 Labs 03/31/24 20:16 03/31/24 20:16 Medications Medications Current Medications Acetaminophen (Acetaminophen 325 Mg Tablet) 650 mg PO Q6H PRN PRN Reason: Headache/Pain Mild Scale (1-3) Al Hydroxide/Mg Hydroxide (Magnesium Hydrox/Alum Hydrox 30 Ml Oral.Susp) 30 ml PO Q6H PRN PRN Reason: Heartburn/Nausea Clonidine HCl (Clonidine Hcl 0.1 Mg Tablet) 0.1 mg PO Q4H PRN; Protocol PRN Reason: SBP > 159 Divalproex Sodium (Divalproex Sodium Er 500 Mg Tab.Er.24h) 500 mg PO BEDTIME LIZETH Stop: 04/05/24 21:01 Divalproex Sodium (Divalproex Sodium Er 250 Mg Tab.Er.24h) 250 mg PO BEDTIME LIZETH Stop: 04/07/24 21:01 Hydroxyzine HCl (Hydroxyzine Hcl 25 Mg Tablet) 25 mg PO Q6H PRN PRN Reason: Anxiety [place] Carbonate ([place] Carbonate Er 300 Mg Tablet.Er) 600 mg PO BID LIZETH Last Admin: 04/04/24 09:09 Dose: 600 mg Lorazepam (Lorazepam 1 Mg Tablet) 1 mg PO TID [facility] Last Admin: 04/04/24 09:09 Dose: 1 mg Losartan Potassium (Losartan Potassium 50 Mg Tablet) 50 mg PO DAILY LIZETH; Protocol Last Admin: 04/04/24 09:09 Dose: 50 mg Magnesium Hydroxide (Milk Of Magnesia 30 Ml Oral.Susp) 30 ml PO DAILY PRN PRN Reason: Constipation Nicotine Polacrilex (Nicotine Polacrilex 2 Mg Gum) 4 mg BUCCAL Q2H PRN PRN Reason: Nicotine Cravings Quetiapine Fumarate (Quetiapine Fumarate 400 Mg Tablet) 400 mg PO BEDTIME LIZETH Last Admin: 04/03/24 20:28 Dose: 400 mg Trazodone HCl (Trazodone Hcl 50 Mg Tablet) 50 mg PO BEDTIME MRX1 PRN PRN Reason: Insomnia Last Admin: 03/25/24 00:26 Dose: 50 mg Triamcinolone Acetonide (Triamcinolone Acet 0.1 % Cream 15 Gm Tube) 1 appl TOPICAL DAILY LIZETH; Protocol Stop: 04/08/24 10:14 Last Admin: 04/04/24 09:08 Dose: 1 appl Allergies Allergies Allergy/AdvReac Type Severity Reaction Status Date / Time valproic acid AdvReac Severe hyperammone Verified 04/01/24 14:45 michelle Assessment & Plan Assessment & Plan (1) HTN (hypertension): Status: Acute Code(s): I10 - Essential (primary) hypertension (2) TIFFANY on CPAP: Status: Acute Code(s): G47.33 - Obstructive sleep apnea (adult) (pediatric) (3) Bipolar I disorder: Status: Acute Code(s): F31.9 - Bipolar disorder, unspecified Plan 03/25: VPA level 19.1. restart VPA and titrate to dosing more likely to produce a therapeutic level. restart/continue seroquel 400 QHS. add ativan 1 TID for apparent catatonia. T/C adding lithium or wellbutrin for augmentation. 03/26: substantially less slow and more verbal than yesterday. continue current mgmt for now. 03/27: continues daily improvement in PMR/paucity of thought. continue current mgmt. 03/29/2024: No changes to current plan. Appears to be very gradual improvements. Ongoing admission as unable to care for self. 03/30: more verbal, but verbal content notable for vagueness and disorganization. does c/o mood lability, rapid thoughts. continue current mgmt, check VPA and labs tomorrow NOC. 03/31: remains vague, disorganized. states his mood is leveling out, however, and his thoughts slowing down. T/C switch to lithium due to combined antidepressant and mood stabilizing effects. 04/01: VPA 15.9 while ammonia 66. rapid taper of VPA and start lithium 600 BID. otherwise continue current mgmt. 04/02: taking lithium, tolerated VPA 1000 last night. go to 750 tonight. continue current mgmt otherwise. [place] paperwork completed. 04/03: continue VPA taper through the weekend. thoughts becoming more organized and less vague. continue current mgmt otherwise. 04/04: no changes ie VPA taper Reason for continued inpatient stay Substantial Risk for: rapid decompensation Time Spent With Patient Time: Total time managing care of this patient today ____ minutes.
[2024-04-04 20:00] VITALS: BP 152/89; PULSE 87; RESP 18; TEMP 36.5; O2SAT 97
[2024-04-04] MEDS: Divalproex Sodium ER 500 MG TAB.ER.24H PO (21:03)
[2024-04-04] MEDS: QUEtiapine Fumarate 400 MG TABLET PO (21:03)
[2024-04-05 07:30] VITALS: BP 103/80; PULSE 81; RESP 14; TEMP 36.5; O2SAT 97
[2024-04-05] MEDS: Triamcinolone Acet 0.1 % Cream 15 GM TUBE 1 APPL TOPICAL (09:00)
[2024-04-05 09:01] VITALS: BP 103/80
[2024-04-05] MEDS: Losartan Potassium 50 MG TABLET PO (09:01)
[2024-04-05] MEDS: Lithium Carbonate ER 300 MG TABLET.ER 600 MG PO ×2 (09:02→22:53)
[2024-04-05] MEDS: LORazepam 1 MG TABLET PO ×3 (09:02→22:53)
--- NOTE | 2024-04-05 10:25 | HO.PSYCHPN ---
Subjective Subjective Date of Service: 04/05/24 Reason For Visit: Mental health crisis Medical Problems Affecting Mental Status: No Interim History: In room. Sheets on floor- using this to do some stretching/movement get blood flowing . This appeared appropriate in nature. Remains much more engaged, more verbal and more organized. No med concerns. No SI. Feeling supported and looking forward to dispo planning with team and family. Medication Compliance: Yes Side effects from medications: No Attending Groups: No Review of Systems Acute medical concerns: No Review of Systems Review of Systems nothing acute noted Mental Status Exam Mental Status Exam Narrative: obese, adequately dressed and groomed. Much less PMR. cooperative. speech soft. Thoughts more organized. affect restricted. mood calm. no SI/HI/AVH expressed. Diagnostics Vital Signs (24Hr): Vital Signs - 24 hr 04/04/24 20:00 04/05/24 07:30 04/05/24 09:01 Temperature 97.7 F 97.7 F Pulse Rate 87 81 Respiratory Rate 18 14 Blood Pressure 152/89 H 103/80 103/80 Pulse Oximetry 97 97 Oxygen Delivery Method Room Air Room Air BMI result Body Mass Index 41.1 Labs 03/31/24 20:16 03/31/24 20:16 Medications Medications Current Medications Acetaminophen (Acetaminophen 325 Mg Tablet) 650 mg PO Q6H PRN PRN Reason: Headache/Pain Mild Scale (1-3) Al Hydroxide/Mg Hydroxide (Magnesium Hydrox/Alum Hydrox 30 Ml Oral.Susp) 30 ml PO Q6H PRN PRN Reason: Heartburn/Nausea Clonidine HCl (Clonidine Hcl 0.1 Mg Tablet) 0.1 mg PO Q4H PRN; Protocol PRN Reason: SBP > 159 Divalproex Sodium (Divalproex Sodium Er 500 Mg Tab.Er.24h) 500 mg PO BEDTIME [facility] Stop: 04/05/24 21:01 Last Admin: 04/04/24 21:03 Dose: 500 mg Divalproex Sodium (Divalproex Sodium Er 250 Mg Tab.Er.24h) 250 mg PO BEDTIME [facility] Stop: 04/07/24 21:01 Hydroxyzine HCl (Hydroxyzine Hcl 25 Mg Tablet) 25 mg PO Q6H PRN PRN Reason: Anxiety [place] Carbonate ([place] Carbonate Er 300 Mg Tablet.Er) 600 mg PO BID [facility] Last Admin: 04/05/24 09:02 Dose: 600 mg Lorazepam (Lorazepam 1 Mg Tablet) 1 mg PO TID LIZETH Last Admin: 04/05/24 09:02 Dose: 1 mg Losartan Potassium (Losartan Potassium 50 Mg Tablet) 50 mg PO DAILY LIZETH; Protocol Last Admin: 04/05/24 09:01 Dose: 50 mg Magnesium Hydroxide (Milk Of Magnesia 30 Ml Oral.Susp) 30 ml PO DAILY PRN PRN Reason: Constipation Nicotine Polacrilex (Nicotine Polacrilex 2 Mg Gum) 4 mg BUCCAL Q2H PRN PRN Reason: Nicotine Cravings Quetiapine Fumarate (Quetiapine Fumarate 400 Mg Tablet) 400 mg PO BEDTIME LIZETH Last Admin: 04/04/24 21:03 Dose: 400 mg Trazodone HCl (Trazodone Hcl 50 Mg Tablet) 50 mg PO BEDTIME MRX1 PRN PRN Reason: Insomnia Last Admin: 03/25/24 00:26 Dose: 50 mg Triamcinolone Acetonide (Triamcinolone Acet 0.1 % Cream 15 Gm Tube) 1 appl TOPICAL DAILY LIZETH; Protocol Stop: 04/08/24 10:14 Last Admin: 04/05/24 09:00 Dose: 1 appl Allergies Allergies Allergy/AdvReac Type Severity Reaction Status Date / Time valproic acid AdvReac Severe hyperammone Verified 04/01/24 14:45 michelle Assessment & Plan Assessment & Plan (1) HTN (hypertension): Status: Acute Code(s): I10 - Essential (primary) hypertension (2) TIFFANY on CPAP: Status: Acute Code(s): G47.33 - Obstructive sleep apnea (adult) (pediatric) (3) Bipolar I disorder: Status: Acute Code(s): F31.9 - Bipolar disorder, unspecified Plan 03/25: VPA level 19.1. restart VPA and titrate to dosing more likely to produce a therapeutic level. restart/continue seroquel 400 QHS. add ativan 1 TID for apparent catatonia. T/C adding lithium or wellbutrin for augmentation. 03/26: substantially less slow and more verbal than yesterday. continue current mgmt for now. 03/27: continues daily improvement in PMR/paucity of thought. continue current mgmt. 03/29/2024: No changes to current plan. Appears to be very gradual improvements. Ongoing admission as unable to care for self. 03/30: more verbal, but verbal content notable for vagueness and disorganization. does c/o mood lability, rapid thoughts. continue current mgmt, check VPA and labs tomorrow NOC. 03/31: remains vague, disorganized. states his mood is leveling out, however, and his thoughts slowing down. T/C switch to lithium due to combined antidepressant and mood stabilizing effects. 04/01: VPA 15.9 while ammonia 66. rapid taper of VPA and start lithium 600 BID. otherwise continue current mgmt. 04/02: taking lithium, tolerated VPA 1000 last night. go to 750 tonight. continue current mgmt otherwise. FMLA paperwork completed. 04/03: continue VPA taper through the weekend. thoughts becoming more organized and less vague. continue current mgmt otherwise. 04/04: no changes ie VPA taper 04/05: no changes ie ongoing VPA taper Reason for continued inpatient stay Substantial Risk for: rapid decompensation Time Spent With Patient Time: Total time managing care of this patient today ____ minutes.
[2024-04-05 19:10] VITALS: BP 142/91; PULSE 81; RESP 16; TEMP 36.4; O2SAT 97
[2024-04-05] MEDS: Divalproex Sodium ER 500 MG TAB.ER.24H PO (22:53)
[2024-04-05] MEDS: QUEtiapine Fumarate 400 MG TABLET PO (22:53)
[2024-04-06 07:45] VITALS: BP 129/85; PULSE 89; RESP 15; TEMP 36.9; O2SAT 95
[2024-04-06] MEDS: Triamcinolone Acet 0.1 % Cream 15 GM TUBE 1 APPL TOPICAL (08:48)
[2024-04-06] MEDS: LORazepam 1 MG TABLET PO ×2 (08:50→21:00)
[2024-04-06 08:52] VITALS: BP 129/85
[2024-04-06] MEDS: Losartan Potassium 50 MG TABLET PO (08:52)
[2024-04-06] MEDS: Lithium Carbonate ER 300 MG TABLET.ER 600 MG PO ×2 (08:54→20:59)
--- NOTE | 2024-04-06 14:30 | P.PNPSI_ITS ---
Subjective Subjective Date of Service: 04/06/24 Reason For Visit: Mental health crisis Interim History: calm, cooperative. slightly more organized and faster responses than last week. per staff, taking meds. flat, withdrawn, guarded. quiet. no complaints. using CPAP. slept about 8 hours overnight. Mental Status Exam Mental Status Exam Narrative: obese, adequately dressed and groomed. Much less PMR. cooperative. speech soft. Thoughts more organized. affect restricted. mood calm. no SI/HI/AVH expressed. Diagnostics Vital Signs (24Hr): Vital Signs - 24 hr 04/05/24 19:10 04/06/24 07:45 04/06/24 08:52 Temperature 97.6 F 98.4 F Pulse Rate 81 89 Respiratory Rate 16 15 Blood Pressure 142/91 H 129/85 129/85 Pulse Oximetry 97 95 Oxygen Delivery Method Room Air Room Air BMI result Body Mass Index 41.1 Labs 03/31/24 20:16 03/31/24 20:16 Medications Medications Current Medications Acetaminophen (Acetaminophen 325 Mg Tablet) 650 mg PO Q6H PRN PRN Reason: Headache/Pain Mild Scale (1-3) Al Hydroxide/Mg Hydroxide (Magnesium Hydrox/Alum Hydrox 30 Ml Oral.Susp) 30 ml PO Q6H PRN PRN Reason: Heartburn/Nausea Clonidine HCl (Clonidine Hcl 0.1 Mg Tablet) 0.1 mg PO Q4H PRN; Protocol PRN Reason: SBP > 159 Divalproex Sodium (Divalproex Sodium Er 250 Mg Tab.Er.24h) 250 mg PO BEDTIME [facility]ZETH Stop: 04/07/24 21:01 Hydroxyzine HCl (Hydroxyzine Hcl 25 Mg Tablet) 25 mg PO Q6H PRN PRN Reason: Anxiety [place] Carbonate ([place] Carbonate Er 300 Mg Tablet.Er) 600 mg PO BID LIZETH Last Admin: 04/06/24 08:54 Dose: 600 mg Lorazepam (Lorazepam 1 Mg Tablet) 1 mg PO BID LIZETH Losartan Potassium (Losartan Potassium 50 Mg Tablet) 50 mg PO DAILY LIZETH; Protocol Last Admin: 04/06/24 08:52 Dose: 50 mg Magnesium Hydroxide (Milk Of Magnesia 30 Ml Oral.Susp) 30 ml PO DAILY PRN PRN Reason: Constipation Nicotine Polacrilex (Nicotine Polacrilex 2 Mg Gum) 4 mg BUCCAL Q2H PRN PRN Reason: Nicotine Cravings Quetiapine Fumarate (Quetiapine Fumarate 400 Mg Tablet) 400 mg PO BEDTIME LIZETH Last Admin: 04/05/24 22:53 Dose: 400 mg Trazodone HCl (Trazodone Hcl 50 Mg Tablet) 50 mg PO BEDTIME MRX1 PRN PRN Reason: Insomnia Last Admin: 03/25/24 00:26 Dose: 50 mg Triamcinolone Acetonide (Triamcinolone Acet 0.1 % Cream 15 Gm Tube) 1 appl TOPICAL DAILY LIZETH; Protocol Stop: 04/08/24 10:14 Last Admin: 04/06/24 08:48 Dose: 1 appl Allergies Allergies Allergy/AdvReac Type Severity Reaction Status Date / Time valproic acid AdvReac Severe hyperammone Verified 04/01/24 14:45 michelle Assessment & Plan Assessment & Plan (1) HTN (hypertension): Status: Acute Code(s): I10 - Essential (primary) hypertension (2) TIFFANY on CPAP: Status: Acute Code(s): G47.33 - Obstructive sleep apnea (adult) (pediatric) (3) Bipolar I disorder: Status: Acute Code(s): F31.9 - Bipolar disorder, unspecified Plan 03/25: VPA level 19.1. restart VPA and titrate to dosing more likely to produce a therapeutic level. restart/continue seroquel 400 QHS. add ativan 1 TID for apparent catatonia. T/C adding lithium or wellbutrin for augmentation. 03/26: substantially less slow and more verbal than yesterday. continue current mgmt for now. 03/27: continues daily improvement in PMR/paucity of thought. continue current mgmt. 03/29/2024: No changes to current plan. Appears to be very gradual improvements. Ongoing admission as unable to care for self. 03/30: more verbal, but verbal content notable for vagueness and disorganization. does c/o mood lability, rapid thoughts. continue current mgmt, check VPA and labs tomorrow NOC. 03/31: remains vague, disorganized. states his mood is leveling out, however, and his thoughts slowing down. T/C switch to lithium due to combined antidepressant and mood stabilizing effects. 04/01: VPA 15.9 while ammonia 66. rapid taper of VPA and start lithium 600 BID. otherwise continue current mgmt. 04/02: taking lithium, tolerated VPA 1000 last night. go to 750 tonight. continue current mgmt otherwise. FMLA paperwork completed. 04/03: continue VPA taper through the weekend. thoughts becoming more organized and less vague. continue current mgmt otherwise. 04/04: no changes ie VPA taper 04/05: no changes ie ongoing VPA taper 04/06: check labs tonight. otherwise continue current mgmt. continues gradual improvement. Reason for continued inpatient stay Substantial Risk for: inability to function and rapid decompensation Time Spent With Patient Time: Total time managing care of this patient today __25__ minutes.
[2024-04-06 20:37] LABS: Lithium 0.43 mmol/L (0.60-1.20)
[2024-04-06 20:43] LABS: Alanine Aminotransferase 79 U/L (0-40); Albumin Level 4.7 g/dL (3.5-5.0); Alkaline Phosphatase 66 U/L (39-117); Anion Gap 13 (12-20); Aspartate Amino Transferase 53 U/L (5-37); Bilirubin Direct 0.2 mg/dL (0.0-0.5); Bilirubin Total 0.3 mg/dL (0.0-1.0); Blood Urea Nitrogen 18 mg/dL (9-16); Calcium 9.5 mg/dL (8.4-10.2); Carbon Dioxide 32 mmol/L (22-29); Chloride 101 mmol/L (96-108); Creatinine Clr Calc Pharmacy 122.4; Estimated Glomerular Filt Rate > 60; Glucose Random 94 mg/dL (60-115); Potassium 4.8 mmol/L (3.3-5.1); Sodium 141 mmol/L (135-145); Total Protein 8.3 g/dL (6.5-8.0)
[2024-04-06 20:52] LABS: Ammonia 49 umol/L (13-55)
[2024-04-06] MEDS: Divalproex Sodium ER 250 MG TAB.ER.24H PO (20:59)
[2024-04-06] MEDS: QUEtiapine Fumarate 400 MG TABLET PO (21:00)
[2024-04-06 21:24] VITALS: BP 144/95; PULSE 76; RESP 16; TEMP 36.4; O2SAT 97
[2024-04-07 07:53] VITALS: BP 124/78; PULSE 76; RESP 16; TEMP 36.6; O2SAT 98
[2024-04-07 09:04] VITALS: BP 120/70
[2024-04-07] MEDS: Triamcinolone Acet 0.1 % Cream 15 GM TUBE 1 APPL TOPICAL (09:04)
[2024-04-07] MEDS: LORazepam 1 MG TABLET PO ×2 (09:04→20:51)
[2024-04-07] MEDS: Lithium Carbonate ER 300 MG TABLET.ER 600 MG PO (09:04)
[2024-04-07] MEDS: Losartan Potassium 50 MG TABLET PO (09:04)
[2024-04-07] MEDS: Lithium Carbonate 300 MG TABLET 150 MG PO (10:58)
--- NOTE | 2024-04-07 15:31 | HO.PSYCHPN ---
Subjective Subjective Date of Service: 04/07/24 Reason For Visit: Mental health crisis Interim History: remains improved, more fluid and cogent by the day. moderate disorganization persists. labs reviewed, pt agrees to lithium dosing increase. ACEI and BUN bump noted, pt open to alternate anti-HTN. per staff, flat, visible. taking meds. wants D/C. pleasant. improved affect. slept 9 hours. lithium 0.43. Mental Status Exam Mental Status Exam Narrative: obese, adequately dressed and groomed. Much less PMR. cooperative. speech soft. Thoughts more organized. affect restricted. mood calm. no SI/HI/AVH expressed. Diagnostics Vital Signs (24Hr): Vital Signs - 24 hr 04/06/24 21:24 04/07/24 07:53 04/07/24 09:04 Temperature 97.6 F 97.8 F Pulse Rate 76 76 Respiratory Rate 16 16 Blood Pressure 144/95 H 124/78 120/70 Pulse Oximetry 97 98 Oxygen Delivery Method Room Air Room Air BMI result Body Mass Index 41.1 Labs 03/31/24 20:16 04/06/24 20:17 Labs: Laboratory Results - last 48 hr 04/06/24 04/06/24 20:16 20:17 Sodium 141 Potassium 4.8 Chloride 101 Carbon Dioxide 32 H Anion Gap 13 BUN 18 H Creatinine 1.06 Estim Creat Clear Calc 122.4 Estimated GFR > 60 Random Glucose 94 Calcium 9.5 Total Bilirubin 0.3 Direct Bilirubin 0.2 AST 53 H ALT 79 H Alkaline Phosphatase 66 Ammonia 49 Total Protein 8.3 H Albumin 4.7 [place] 0.43 L Medications Medications Current Medications Acetaminophen (Acetaminophen 325 Mg Tablet) 650 mg PO Q6H PRN PRN Reason: Headache/Pain Mild Scale (1-3) Al Hydroxide/Mg Hydroxide (Magnesium Hydrox/Alum Hydrox 30 Ml Oral.Susp) 30 ml PO Q6H PRN PRN Reason: Heartburn/Nausea Clonidine HCl (Clonidine Hcl 0.1 Mg Tablet) 0.1 mg PO Q4H PRN; Protocol PRN Reason: SBP > 159 Divalproex Sodium (Divalproex Sodium Er 250 Mg Tab.Er.24h) 250 mg PO BEDTIME [facility]ZETH Stop: 04/07/24 21:01 Last Admin: 04/06/24 20:59 Dose: 250 mg Hydroxyzine HCl (Hydroxyzine Hcl 25 Mg Tablet) 25 mg PO Q6H PRN PRN Reason: Anxiety [place] Carbonate ([place] Carbonate Er 300 Mg Tablet.Er) 750 mg PO BID LIZETH Lorazepam (Lorazepam 1 Mg Tablet) 1 mg PO BID [facility]ZETH Last Admin: 04/07/24 09:04 Dose: 1 mg Losartan Potassium (Losartan Potassium 50 Mg Tablet) 50 mg PO DAILY LIZETH; Protocol Last Admin: 04/07/24 09:04 Dose: 50 mg Magnesium Hydroxide (Milk Of Magnesia 30 Ml Oral.Susp) 30 ml PO DAILY PRN PRN Reason: Constipation Nicotine Polacrilex (Nicotine Polacrilex 2 Mg Gum) 4 mg BUCCAL Q2H PRN PRN Reason: Nicotine Cravings Quetiapine Fumarate (Quetiapine Fumarate 400 Mg Tablet) 400 mg PO BEDTIME LIZETH Last Admin: 04/06/24 21:00 Dose: 400 mg Trazodone HCl (Trazodone Hcl 50 Mg Tablet) 50 mg PO BEDTIME MRX1 PRN PRN Reason: Insomnia Last Admin: 03/25/24 00:26 Dose: 50 mg Triamcinolone Acetonide (Triamcinolone Acet 0.1 % Cream 15 Gm Tube) 1 appl TOPICAL DAILY LIZETH; Protocol Stop: 04/08/24 10:14 Last Admin: 04/07/24 09:04 Dose: 1 appl Allergies Allergies Allergy/AdvReac Type Severity Reaction Status Date / Time valproic acid AdvReac Severe hyperammone Verified 04/01/24 14:45 michelle Assessment & Plan Assessment & Plan (1) HTN (hypertension): Status: Acute Code(s): I10 - Essential (primary) hypertension (2) TIFFANY on CPAP: Status: Acute Code(s): G47.33 - Obstructive sleep apnea (adult) (pediatric) (3) Bipolar I disorder: Status: Acute Code(s): F31.9 - Bipolar disorder, unspecified Plan 03/25: VPA level 19.1. restart VPA and titrate to dosing more likely to produce a therapeutic level. restart/continue seroquel 400 QHS. add ativan 1 TID for apparent catatonia. T/C adding lithium or wellbutrin for augmentation. 03/26: substantially less slow and more verbal than yesterday. continue current mgmt for now. 03/27: continues daily improvement in PMR/paucity of thought. continue current mgmt. 03/29/2024: No changes to current plan. Appears to be very gradual improvements. Ongoing admission as unable to care for self. 03/30: more verbal, but verbal content notable for vagueness and disorganization. does c/o mood lability, rapid thoughts. continue current mgmt, check VPA and labs tomorrow NOC. 03/31: remains vague, disorganized. states his mood is leveling out, however, and his thoughts slowing down. T/C switch to lithium due to combined antidepressant and mood stabilizing effects. 04/01: VPA 15.9 while ammonia 66. rapid taper of VPA and start lithium 600 BID. otherwise continue current mgmt. 04/02: taking lithium, tolerated VPA 1000 last night. go to 750 tonight. continue current mgmt otherwise. [place] completed. 04/03: continue VPA taper through the weekend. thoughts becoming more organized and less vague. continue current mgmt otherwise. 04/04: no changes ie VPA taper 04/05: no changes ie ongoing VPA taper 04/06: check labs tonight. otherwise continue current mgmt. continues gradual improvement. 04/07: daily small improvements. lithium 0.43, BUN bump. increase lithium to 750 BID, consider changing ACEI to other anti-HTN agent. Reason for continued inpatient stay Substantial Risk for: inability to function and rapid decompensation Time Spent With Patient Time: Total time managing care of this patient today __35__ minutes.
[2024-04-07 20:49] VITALS: BP 141/87; PULSE 80; RESP 16; TEMP 36.6; O2SAT 98
[2024-04-07] MEDS: Lithium Carbonate ER 300 MG TABLET.ER 750 MG PO (20:50)
[2024-04-07] MEDS: QUEtiapine Fumarate 400 MG TABLET PO (20:52)
[2024-04-07] MEDS: Divalproex Sodium ER 250 MG TAB.ER.24H PO (20:53)
[2024-04-08 07:27] VITALS: BP 128/82; PULSE 76; RESP 18; TEMP 36.3; O2SAT 96
[2024-04-08] MEDS: Lithium Carbonate ER 300 MG TABLET.ER 750 MG PO ×2 (08:54→21:34)
[2024-04-08 08:55] VITALS: BP 128/82
[2024-04-08] MEDS: Losartan Potassium 50 MG TABLET PO (08:55)
[2024-04-08] MEDS: LORazepam 1 MG TABLET PO (08:56)
[2024-04-08] MEDS: Triamcinolone Acet 0.1 % Cream 15 GM TUBE 1 APPL TOPICAL (10:37)
--- NOTE | 2024-04-08 16:12 | HO.PSYCHPN ---
Subjective Subjective Date of Service: 04/08/24 Reason For Visit: Mental health crisis Interim History: much improved today. more fluid, faster reaction time. per staff, no issues. brighter, more talkative. slept 7 hours. amenable to BP med changes and ativan taper. Mental Status Exam Mental Status Exam Narrative: obese, adequately dressed and groomed. Much less PMR. cooperative. speech soft. Thoughts organized. affect constricted. mood calm. no SI/HI/AVH expressed. Diagnostics Vital Signs (24Hr): Vital Signs - 24 hr 04/07/24 20:49 04/08/24 07:27 04/08/24 08:55 Temperature 97.9 F 97.3 F Pulse Rate 80 76 Respiratory Rate 16 18 Blood Pressure 141/87 H 128/82 128/82 Pulse Oximetry 98 96 Oxygen Delivery Method Room Air Room Air BMI result Body Mass Index 41.1 Labs 03/31/24 20:16 04/06/24 20:17 Labs: Laboratory Results - last 48 hr 04/06/24 04/06/24 20:16 20:17 Sodium 141 Potassium 4.8 Chloride 101 Carbon Dioxide 32 H Anion Gap 13 BUN 18 H Creatinine 1.06 Estim Creat Clear Calc 122.4 Estimated GFR > 60 Random Glucose 94 Calcium 9.5 Total Bilirubin 0.3 Direct Bilirubin 0.2 AST 53 H ALT 79 H Alkaline Phosphatase 66 Ammonia 49 Total Protein 8.3 H Albumin 4.7 [place] 0.43 L Medications Medications Current Medications Acetaminophen (Acetaminophen 325 Mg Tablet) 650 mg PO Q6H PRN PRN Reason: Headache/Pain Mild Scale (1-3) Al Hydroxide/Mg Hydroxide (Magnesium Hydrox/Alum Hydrox 30 Ml Oral.Susp) 30 ml PO Q6H PRN PRN Reason: Heartburn/Nausea Amlodipine Besylate (Amlodipine Besylate 5 Mg Tablet) 5 mg PO DAILY LIZETH; Protocol Clonidine HCl (Clonidine Hcl 0.1 Mg Tablet) 0.1 mg PO Q4H PRN; Protocol PRN Reason: SBP > 159 Hydroxyzine HCl (Hydroxyzine Hcl 25 Mg Tablet) 25 mg PO Q6H PRN PRN Reason: Anxiety [place] Carbonate ([place] Carbonate Er 300 Mg Tablet.Er) 750 mg PO BID [facility] Last Admin: 04/08/24 08:54 Dose: 750 mg Lorazepam (Lorazepam 1 Mg Tablet) 1 mg PO BID [facility] Last Admin: 04/08/24 08:56 Dose: 1 mg Losartan Potassium (Losartan Potassium 25 Mg Tablet) 25 mg PO DAILY LIZETH; Protocol Magnesium Hydroxide (Milk Of Magnesia 30 Ml Oral.Susp) 30 ml PO DAILY PRN PRN Reason: Constipation Nicotine Polacrilex (Nicotine Polacrilex 2 Mg Gum) 4 mg BUCCAL Q2H PRN PRN Reason: Nicotine Cravings Quetiapine Fumarate (Quetiapine Fumarate 400 Mg Tablet) 400 mg PO BEDTIME LIZETH Last Admin: 04/07/24 20:52 Dose: 400 mg Trazodone HCl (Trazodone Hcl 50 Mg Tablet) 50 mg PO BEDTIME MRX1 PRN PRN Reason: Insomnia Last Admin: 03/25/24 00:26 Dose: 50 mg Allergies Allergies Allergy/AdvReac Type Severity Reaction Status Date / Time valproic acid AdvReac Severe hyperammone Verified 04/01/24 14:45 michelle Assessment & Plan Assessment & Plan (1) HTN (hypertension): Status: Acute Code(s): I10 - Essential (primary) hypertension (2) TIFFANY on CPAP: Status: Acute Code(s): G47.33 - Obstructive sleep apnea (adult) (pediatric) (3) Bipolar I disorder: Status: Acute Code(s): F31.9 - Bipolar disorder, unspecified Plan 03/25: VPA level 19.1. restart VPA and titrate to dosing more likely to produce a therapeutic level. restart/continue seroquel 400 QHS. add ativan 1 TID for apparent catatonia. T/C adding lithium or wellbutrin for augmentation. 03/26: substantially less slow and more verbal than yesterday. continue current mgmt for now. 03/27: continues daily improvement in PMR/paucity of thought. continue current mgmt. 03/29/2024: No changes to current plan. Appears to be very gradual improvements. Ongoing admission as unable to care for self. 03/30: more verbal, but verbal content notable for vagueness and disorganization. does c/o mood lability, rapid thoughts. continue current mgmt, check VPA and labs tomorrow NOC. 03/31: remains vague, disorganized. states his mood is leveling out, however, and his thoughts slowing down. T/C switch to lithium due to combined antidepressant and mood stabilizing effects. 04/01: VPA 15.9 while ammonia 66. rapid taper of VPA and start lithium 600 BID. otherwise continue current mgmt. 04/02: taking lithium, tolerated VPA 1000 last night. go to 750 tonight. continue current mgmt otherwise. [place] paperwork completed. 04/03: continue VPA taper through the weekend. thoughts becoming more organized and less vague. continue current mgmt otherwise. 04/04: no changes ie VPA taper 04/05: no changes ie ongoing VPA taper 04/06: check labs tonight. otherwise continue current mgmt. continues gradual improvement. 04/07: daily small improvements. lithium 0.43, BUN bump. increase lithium to 750 BID, consider changing ACEI to other anti-HTN agent. 04/08: step improvement in the past 24H. taper ativan. decrease losartan to 25 mg from 50 mg daily due to concern for combination with lithium and their effect on renal fxn. add norvasc 5 mg daily to compensate. Reason for continued inpatient stay Substantial Risk for: inability to function and rapid decompensation Time Spent With Patient Time: Total time managing care of this patient today __35__ minutes.
[2024-04-08 20:00] VITALS: BP 137/69; PULSE 72; RESP 16; TEMP 36.6; O2SAT 93
[2024-04-08] MEDS: QUEtiapine Fumarate 400 MG TABLET PO (21:35)
[2024-04-08] MEDS: LORazepam 0.5 MG TABLET PO (21:35)
[2024-04-09 07:20] VITALS: BP 126/82; PULSE 75; RESP 12; TEMP 36.6; O2SAT 99
[2024-04-09] MEDS: amLODIPine Besylate 5 MG TABLET PO (09:20)
[2024-04-09] MEDS: Lithium Carbonate ER 300 MG TABLET.ER 750 MG PO ×2 (09:20→20:25)
[2024-04-09] MEDS: Losartan Potassium 25 MG TABLET PO (09:20)
[2024-04-09] MEDS: LORazepam 0.5 MG TABLET PO (09:20)
--- NOTE | 2024-04-09 13:21 | P.DS_ITS ---
DS: Providers Provider Date of Service: 04/09/24 Date of admission: 03/24/24 12:25 Primary care physician: Unknown Physician Consults: 03/24/24 12:32 Consult to Hospitalist Routine Comment: Consulting Provider: [facility] [place] [facility] Reason For Exam: OSH admission DS: Diagnosis Discharge Diagnosis (1) HTN (hypertension): Status: Acute (2) TIFFANY on CPAP: Status: Acute (3) Bipolar I disorder: Status: Acute DS: Medications Discharge Medications Home Medications: Previous Rx's ?Medication ?Instructions ?Recorded amlodipine 5 mg tablet 10 mg PO DAILY 30 days #60 tabs 04/09/24 lithium carbonate 300 mg 750 mg (2.5 x 300 mg) PO BID 30 04/09/24 tablet,extended release days #150 tabs quetiapine 400 mg tablet 400 mg PO BEDTIME 30 days #30 tabs 04/09/24 Mental Status Exam Mental Status Exam Narrative: obese, adequately dressed and groomed. Much less PMR. cooperative. speech soft. Thoughts organized. affect flexible, full range. mood good. no SI/HI/AVH. Data Data Completed and Pending Completed studies during hospitalization [Text1]: 04/06/24 04/06/24 20:16 20:17 Sodium 141 Potassium 4.8 Chloride 101 Carbon Dioxide 32 H Anion Gap 13 BUN 18 H Creatinine 1.06 Estim Creat Clear Calc 122.4 Estimated GFR > 60 Random Glucose 94 Calcium 9.5 Total Bilirubin 0.3 Direct Bilirubin 0.2 AST 53 H ALT 79 H Alkaline Phosphatase 66 Ammonia 49 Total Protein 8.3 H Albumin 4.7 [place] 0.43 L DS: Summary Hospital Course Hospital Course: per 03/25 admission note: HPI Narrative: per [facility] ED notes, pt was seenin community by [facility] and then referred to the ED for admission. he was described as very terse, answering in only 1-2 words at a time. he denied any medical concerns in the ED. a h/o bipolar disorder was reported, and pt's outpt meds included VPA 1000 mg QHS and seroquel 400 mg QHS. at some point after his arrival, pt attempted to elope from the ED and had to be physically brought back by security staff. he was given haldol 5 and ativan 2 mg IM. medical workup was unremarkable, and pt was referred for inpatient admission. per [facility] BH note, pt had been at [facility] respite and had presented as disorganized. he reportedly hopped the fence there, was RIS, was making nonsensical statements, and was engaging in bizarre behaviors, under the circu mstances, such as rolling in leaves. he endorsed AH to [facility] staff. per collateral from pt's , he stopped sleeping last saturday and has been calling out of work. he became progressively mute such that by saturday he would not respond to her at all verbally. since then he mumbles sometimes and has been wandering aimlessly in the house. on interview with MD, pt is much as described above. blunted, terse, psychomotorically retarded. his responses are linear and logical, however. he agrees to VPA, seroquel, and ativan. pt also seen with , collateral obtained, questions answered. discussed possibility of lithium augmentation and use of ativan for catatonia. pt denied any safety concerns at present. Past Psychiatric History[place] [facility]: denies SIB: denies outpt: reports pt has stopped seeing his therapist and psych MD. PCP has been Rxing meds. Medical Evaluation Reviewed: Yes [facility] Medical History (Updated 03/25/24 @ 20:50 by Kirit Scott MD) TIFFANY on CPAP Psoriasis HLD (hyperlipidemia) HTN (hypertension) Family History: mother - hyperthyroidism Social History: [employer] . . lives with his and their son. strong family supports and friends. 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 Substance History: per , no h/o alcohol or ELEAZAR. pt denies alcohol, tobacco. he does endorse occasional cannabis use. Trauma History: unknown Precis: 03/25: VPA level 19.1. restart VPA and titrate to dosing more likely to produce a therapeutic level. restart/continue seroquel 400 QHS. add ativan 1 TID for apparent catatonia. T/C adding lithium or wellbutrin for augmentation. 03/26: substantially less slow and more verbal than yesterday. continue current mgmt for now. 03/27: continues daily improvement in PMR/paucity of thought. continue current mgmt. 03/29/2024: No changes to current plan. Appears to be very gradual improvements. Ongoing admission as unable to care for self. 03/30: more verbal, but verbal content notable for vagueness and disorganization. does c/o mood lability, rapid thoughts. continue current mgmt, check VPA and labs tomorrow NOC. 03/31: remains vague, disorganized. states his mood is leveling out, however, and his thoughts slowing down. T/C switch to lithium due to combined antidepressant and mood stabilizing effects. 04/01: VPA 15.9 while ammonia 66. rapid taper of VPA and start lithium 600 BID. otherwise continue current mgmt. 04/02: taking lithium, tolerated VPA 1000 last night. go to 750 tonight. continue current mgmt otherwise. FMLA paperwork completed. 04/03: continue VPA taper through the weekend. thoughts becoming more organized and less vague. continue current mgmt otherwise. 04/04: no changes ie VPA taper 04/05: no changes ie ongoing VPA taper 04/06: check labs tonight. otherwise continue current mgmt. continues gradual improvement. 04/07: daily small improvements. lithium 0.43, BUN bump. increase lithium to 750 BID, consider changing ACEI to other anti-HTN agent. 04/08: step improvement in the past 24H. taper ativan. decrease losartan to 25 mg from 50 mg daily due to concern for combination with lithium and their effect on renal fxn. add norvasc 5 mg daily to compensate. 04/09: stable, improved. meds reviewed, reconciled, prescribed. 04/10: labs reviewed, lithium 0.67, BMP abnormalities resolved. PCP appointment 04/30. Time Spent with Patient Time attestation: Total time managing care of this patient today _35___ minutes. Discharge Plan Discharge Anticipated Discharge Date/Time: 04/10/24 11:00 Patient Disposition: Home, Self-Care Discharge Diagnosis: Bipolar I Disorder, MRE Manic HTN TIFFANY on CPAP Referrals: Delicia Orozco (Therapy) [Other] - 04/17/24 11:00 am (IN OFFICE APPOINTMENT) Estefani Montgomery (Psychiatry) [Other] - 05/08/24 11:00 am (IN OFFICE APPOINTMENT ) Sabrina Pedersen PA [Physician Woodworking [employer]] - 04/30/24 10:00 am Discharge Medications: New lithium carbonate 300 mg Tablet Extended Release 750 mg PO BID 30 Days Qty: 150 0RF amlodipine 5 mg Tablet 10 mg PO DAILY 30 Days Qty: 60 0RF Protocol: Hold for SBP< HOLD for SBP < : 90 Continued quetiapine 400 mg tablet 400 mg PO BEDTIME 30 Days Qty: 30 0RF Discontinued losartan 50 mg tablet 50 mg PO DAILY divalproex [Depakote ER] 500 mg Tablet Extended Release 24 Hr 500 mg PO ONCE Discharge Orders: Discharge Order (Routine); Ordered 04/10/24 Ordered By: Kirit Scott Diet: Advance to usual diet Activity on Discharge: As tolerated Stand Alone Forms: Patient Portal Discharge page, Community Support Print Language: [place] Care Plan Goals: remain safe and stable in the outpatient treatment setting Health Concerns: HTN TIFFANY on CPAP Plan of Treatment: take medications as prescribed, attend appointments as scheduled Assessment: not at imminent risk of harm to self or others Discharge Date/Time: 04/10/24 11:00
[2024-04-09 20:00] VITALS: BP 135/91; PULSE 84; RESP 18; TEMP 36.9; O2SAT 97
[2024-04-09] MEDS: QUEtiapine Fumarate 400 MG TABLET PO (20:25)
[2024-04-10 07:38] VITALS: BP 140/84; PULSE 72; RESP 16; TEMP 36.5; O2SAT 100
[2024-04-10 08:29] LABS: Lithium 0.67 mmol/L (0.60-1.20)
[2024-04-10 08:38] LABS: Alanine Aminotransferase 67 U/L (0-40); Albumin Level 4.5 g/dL (3.5-5.0); Alkaline Phosphatase 60 U/L (39-117); Anion Gap 13 (12-20); Aspartate Amino Transferase 34 U/L (5-37); Bilirubin Direct 0.2 mg/dL (0.0-0.5); Bilirubin Total 0.6 mg/dL (0.0-1.0); Blood Urea Nitrogen 15 mg/dL (9-16); Calcium 9.3 mg/dL (8.4-10.2); Carbon Dioxide 29 mmol/L (22-29); Chloride 101 mmol/L (96-108); Creatinine Clr Calc Pharmacy 123.6; Estimated Glomerular Filt Rate > 60; Glucose Random 101 mg/dL (60-115); Potassium 4.4 mmol/L (3.3-5.1); Sodium 139 mmol/L (135-145); Total Protein 7.9 g/dL (6.5-8.0)
[2024-04-10] MEDS: amLODIPine Besylate 10 MG TABLET PO (08:48)
[2024-04-10] MEDS: Lithium Carbonate ER 300 MG TABLET.ER 750 MG PO (08:49)
== END 2024-04-10 11:00 | disposition home or self-care (01) | DRG 753 ==
PROVIDERS: Admitting Provider Psychiatry & Neurology Psychiatry; Visit Provider Psychiatry & Neurology Psychiatry
DX: F31.9 Bipolar disorder, unspecified (principal); G47.33 Obstructive sleep apnea (adult) (pediatric); I10 Essential (primary) hypertension; Z79.899 Other long term (current) drug therapy
CPT/HCPCS: 36415; 80048; 80061; 80076; 80164; 80178; 82140; 82607; 82746; 83036; 84439; 84443; 85025

== ENCOUNTER → 2024-03-24 12:25 | Outpatient (BNV) | payer OTHER, SELFPAY | PROVIDERS: Admitting Provider Psychiatry & Neurology Psychiatry; Visit Provider Physician Assistant | DX: I10 Essential (primary) hypertension (principal) | CPT/HCPCS: 99222 ==

== ENCOUNTER → 2024-03-24 12:25 | Outpatient (BNV) | payer OTHER, SELFPAY | PROVIDERS: Admitting Provider Psychiatry & Neurology Psychiatry; Visit Provider Psychiatry & Neurology Psychiatry | DX: F31.2 Bipolar disorder, current episode manic severe with psychotic features (principal); I10 Essential (primary) hypertension; G47.33 Obstructive sleep apnea (adult) (pediatric) | CPT/HCPCS: 99231; 99232; 99233 ==